=== PATIENT | male | born 1955 | race Caucasian/White ===

== ENCOUNTER 2018-10-11 18:29 | Inpatient (IN) | payer OTHER ==
[~2018-10-11] VITALS: Ht 170.2 cm; Wt 80.0 kg
[~2018-10-11 18:29] MED LIST: ACET1TAB40 PO; ACET500C5 PO; ASPI-817 PO; ERYT1OIN6 LEFT EYE; GLYB1TAB2 PO; METO-448 PO; RAMI5CAP64 PO; TRAM50TA2 PO
[2018-10-11 20:52] VITALS: BP 133/63; PULSE 63; RESP 16
[2018-10-11 21:20] VITALS: Ht 170.2 cm; Wt 80.0 kg
[2018-10-11 21:24] VITALS: BP 123/67; PULSE 61; RESP 18
[2018-10-11] MEDS ORDERED: SIMV40TA3 PO (21:54)
[2018-10-11] MEDS ORDERED: BENA10TA4 PO (21:54)
[2018-10-11] MEDS ORDERED: LINA5TAB PO (21:54)
[2018-10-11] MEDS ORDERED: GLIM4TAB55 PO (21:54)
[2018-10-11] MEDS ORDERED: METF850T13 PO (21:54)
--- NOTE | 2018-10-11 22:06 | NUR ---
NRSG NOTE: PT ARRIVED ON FLOOR AT 2014 IN STABLE CONDITION. AOX4. NO ACUTE DISTRESS NOTED. NO SOB. VSS. DENIED PAIN. BERMUDIAN SPEAKING, UNDERSTANDS BASIC [place]KIN[place]. ACCOMPANIED BY DAUGHTERS, . REPORT WAS GIVEN TO PRESTON VYAS. TRANSFERRED TO IN STABLE CONDITION VIA TRANSPORT ON BED.
--- NOTE | 2018-10-11 23:24 | HP ---
Date/Time of Note Date/Time of Note DATE: 10/11/18 TIME: 23:24 Assessment/Plan VTE Prophylaxis SCD applied (from Nsg): Yes Pharmacological prophylaxis: NA/contraindicated Pharm contraindication: other (Patient awaiting for a possible biopsy) Assessment/Plan Assessment/Plan 63-year-old male with a history of CAD with CABG, hypertension, dyslipidemia with painless jaundice, pruritus, 20 pounds weight loss in 6 weeks and petechial rash with a CT finding suspicious for metastatic cholangiocarcinoma. Lab shows hyperbilirubinemia with T-bili of 13 PLAN -Need a tissue biopsy to confirm the diagnosis. Daytime MD will talk to IR in the morning -Surgery and oncology consult -Antihistamine and Ursodiol for pruritus -Patient status post permethrin cream as outpatient for a rash suspicious for scabies, but without improvement. We may repeat treatment -Continue home meds with adjustment as needed HPI/ROS Admit Date/Time Admit Date/Time Oct 11, 2018 at 19:55 Hx of Present Illness This is a 63-year-old male with a history of CAD with CABG, hypertension, dyslipidemia who initially presented on outside hospital complaining of yellowing of skin, itching and rash. Symptoms started over 2 weeks ago and has been progressively getting worse. Patient has significant jaundice, more p ronounced in his upper extremities and chest. His total bilirubin at outside facility was 13. He also has petechial rash which resembles scabs. Patient reported a 20 pound weight loss in about 6 weeks. Reported decreased p.o. intake because of decreased appetite. Denied abdominal pain, chest pain, shortness of breath, urinary symptoms, constipation or diarrhea. Prior to going to the outside hospital ER, he was seen by his PMD and was prescribed Benadryl, prednisone and permethrin cream, but problem persisted. Patient had CT abdomen/pelvis at the outside facility which showed: 1. Hypoenhancing mass in the central liver, 6.2 x 5.9 x 5.4 cm, suspicious for cholangiocarcinoma, versus other hepatic tumor. There is extension along the portal hilum and gallbladder neck. There is intrahepatic biliary dilatation. 2. Mild thickened appearance of the adjacent upper hepatic flexure colonic wall, which could be reactive, although colonic involvement is not excluded. 3. Enlarged celiac lymph node, 2.3 x 1.6 cm, consistent with metastatic involvement 4. Left renal cyst, 2.5 cm . PMH/Family/Social Past Medical History Medical History: other (See HPI) Coded Allergies: No Known Allergy (Verified , 03/11/16) Past Surgical History Past Surgical Hx: other (See HPI) Family History Significant Family History: no pertinent family hx Social History Alcohol Use: none Smoking Status: Former smoker Drug Use: none Exam/Review of Systems Vital Signs Vitals Vital Signs Date Temp Pulse Resp B/P (MAP) Pulse Ox O2 O2 Flow FiO2 Time Delivery Rate 10/11/18 97.0 61 18 123/67 99 Room Air 21:24 (85) Exam Constitutional: alert, oriented, well developed Head: normocephalic, atraumatic Eyes: EOMI, PERRL, icteric Respiratory: clear to auscultation, normal air movement Cardiovascular: regular rate and rhythm, nl pulses Gastrointestinal: soft, non-tender Extremities: normal pulses Skin: other (Skin is jaundiced and has a petechial rash resembling scabies on several part of his upper extremities and chest and back) Results Results 24 hrs Laboratory Tests Test 10/11/18 20:40 Bedside Glucose 228 H CARLOS RESENDIZ MD Oct 11, 2018 23:24
[2018-10-11] MEDS ORDERED: NACL 0.9% 3 ML SYG IV SCH (23:30)
[2018-10-11] MEDS ORDERED: ONDANSETRON 4 MG INJ IV PRN (23:30)
[2018-10-11] MEDS ORDERED: ACETAMINOPHEN 325 MG TAB PO PRN (23:30)
[2018-10-11] MEDS ORDERED: HYDROCODONE/APAP (5/325) TAB PO PRN ×2 (23:30)
[2018-10-12] VITALS (31 sets, daily range): BP systolic 128–178; BP diastolic 61–87; PULSE 67–87; RESP 15–25
[2018-10-12] MEDS ORDERED: GLUCOSE GEL 15 GRAM TUBE BUCCAL PRN (02:30)
[2018-10-12] MEDS ORDERED: GLUCOSE GEL 15 GRAM TUBE PO PRN ×2 (02:30)
[2018-10-12] MEDS ORDERED: GLUCAGON 1 MG INJ IM PRN (02:30)
[2018-10-12] MEDS ORDERED: DEXTROSE 50% 50 ML SYRINGE IV PRN ×2 (02:30)
--- NOTE | 2018-10-12 02:47 | NUR ---
Received report from ASAEL Swenson. Pt is a direct admit from [facility]. Pt accompanied by and two daughters. Pt in no acute distress. Admission assessment started at 2119. VSS. No complaints of pain. Dr. Etienne inputted orders and contacted re: pt's blood glucose of 231. Dr. Etienne ordered pt to be put on mild sliding scale, orders carried out. Pt resting comfortably in bed, call light within reach.
[2018-10-12] MEDS: PANTOPRAZOLE (EC) 40 MG TAB PO SCH (06:00)
--- NOTE | 2018-10-12 06:18 | NUR ---
EOSS VSS. Pt denies pain. Pt complains of itchiness, Dr. Etienne made aware. Pt instructed to use call light.
[2018-10-12] MEDS ORDERED: DIPHENHYDRAMINE 50 MG INJ IV PRN (07:00)
[2018-10-12] MEDS ORDERED: SEVOFLURANE 15 MIN ONE ×2 (07:00)
[2018-10-12] MEDS ORDERED: DEXTROSE 5%-0.45% NACL 1,000 ML IV SCH (07:30)
[2018-10-12] MEDS ORDERED: INSULIN ASPART [NOVOLOG] 3 ML PEN SC SCH (08:00)
[2018-10-12] MEDS: BENAZEPRIL 10 MG TAB PO SCH (08:45)
[2018-10-12] MEDS: INSULIN ASPART [NOVOLOG] 3 ML PEN SC SCH ×6 (08:56→20:35)
[2018-10-12] MEDS ORDERED: LINAGLIPTIN 5 MG TABLET PO SCH (09:00)
[2018-10-12] MEDS ORDERED: metFORMIN 850 MG TAB PO SCH (09:00)
[2018-10-12] MEDS: URSODIOL 300 MG CAP PO SCH ×3 (10:14→20:05)
--- NOTE | 2018-10-12 12:42 | NUR ---
PT EVALUATION AND DC, Therapy day number 1 Evaluation Start Time 11:30 Evaluation End Time 12:55 Evaluation Total Time 85 min Subjective Denies pain Pain Scale NUMERIC Pain Intensity 0 (0-10) Patient Stated Goal for Pain Relief 0 (0-10) Pain Level Comment N/A Pre Treatment Vital Signs Stable Yes - BP:139/67 HR:74 Exercise Assessment Label Bilat Lower Extremity Exercise Type Active ROM Additional Exercise Comments AP, KNEE FLEX, EXT, SAQ , SLR , LAQ Supine to Sit Independent Transfer Sit to Stand Ability Independent Bed Mobility Sit to Supine Independent Bed Transfer Ability Independent Chair Transfer Ability Independent Sitting Tolerance 15 min Gait Assist Levels Independent Assistive Devices None Ambulation Distance 300 feet Additional Gait Comments RECIPROCAL, STEADY, STABLE WITH NO LOB ( WITHOUT AD ). Weight Bearing Assessment Label Bilat Lower Extremity Weight Bearing Status Full Weight Bearing Static Sitting Balance Fair minus Dynamic Sitting Balance Good Standing Static Balance Good Dynamic Standing Balance Good Safety Judgement Good Activity Tolerance Good Equipment Present IV pump Post Treatment Pain Intensity 0 0-10 Variance Documentation P/S SEE PT NOTE . PT Technical Record Comment PT EVALUATION , S: RN CLEARED , PATIENT AGREEABLE . O: PATIENT IS A 63 Y/O MALE WITH PMH : CAD, WITH CABG , HTN , PAINLESS JAUNDICE PRURITUS, WEIGHT LOSS 20' IN 6WKS, ADMITTED TO [facility] DUE TO GENERALIZED WEAKNESS AND TO R/O CHOLANGIOCARCINOMA .PATIENT IS ALERT AND ORIENTED TO SELF , SITUATION , INSTRUCTED HIM IN SAFETY FALL PRECAUTION , AND A/ROM BLE'S , PATIENT IS IND.IN BED MOBILITY , FUNCTIONAL TRANSFERS , GAIT TR WITHOUT AD PERFORMED 300' , GAIT WITHOUT AD , STEADY, STABLE AND RECIPROCAL WITH NO LOB , NO FURTHER SKILLED PT REQUIRES , PATIENT IS CLEARED TO AMBULATE WITH [facility] [place] STAFF , RN NOTIFIED . A: PATIENT LIVES WITH FAMILY IN A HOUSE WITH ONE ENTRY STEP, HAS BEEN FUNCTIONAL AND IND.AMBULATORY WITHOUT AD , PLAN TO RETURN HOME ONCE CLEARED BY MD , NO DME NEEDS . P: PT EVALUATION , ONLY .
--- NOTE | 2018-10-12 14:18 | CONS ---
Date/Time of Note Date/Time of Note DATE: 10/12/18 TIME: 14:13 Assessment/Plan Assessment/Plan Additional Assessment/Plan Preoperative cardiac risk stratification Jaundice CAD with history of CABG Hypertension -Patient presents with jaundice and is currently undergoing GI workup for concern for malignancy. From a cardiac perspective, patient with history of CABG approximately 2008. He is active and can climb at least 2 flights of stairs and denies any symptoms of exertional chest pain or shortness of breath. ECG with no significant ischemic abnormalities. Given his risk factors, patient is at an intermediate risk for any untoward cardiac events for endoscopy/ERCP. The benefits likely outweigh the risks. Consultation Date/Type/Reason Admit Date/Time Oct 11, 2018 at 19:55 Type of Consult cv Reason for Consultation Preoperative cardiac risk stratification Hx of Present Illness This is a 63-year-old male with past medical history of coronary artery disease with CABG approximately 2008, hypertension who presents with pruritus and jaundice progressing over the past 2 weeks. Patient was transferred to our facility secondary to insurance reasons. In discussion with patient and daughter over the phone, he denies any exertional chest pain, shortness of breath, or dizziness. He can climb at least 2 flights of stairs. He denies any exertional symptoms. He has been doing well since his CABG from a cardiac standpoint. 12 point review of systems was performed with all pertinent positives and negatives mentioned above and all else is negative Past Medical History Medical History: coronary artery disease, hypertension, other (See HPI) Medications Current Medications IV Flush (NS 3 ml) 3 ml PER PROTOCOL IV ; Start 10/11/18 at 23:30 Ondansetron HCl (Zofran Inj) 4 mg Q6H PRN IV NAUSEA AND/OR VOMITING; Start 10/11/18 at 23:30 Acetaminophen (Tylenol Tab) 650 mg Q6H PRN PO PAIN LEVEL 1-3 OR FEVER; Start 10/11/18 at 23:30 Acetaminophen/ Hydrocodone Bitart ([place] (5/325)) 1 tab Q6H PRN PO PAIN LEVEL 4-6; Start 10/11/18 at 23:30 Acetaminophen/ Hydrocodone Bitart ([place] (5/325)) 2 tab Q6H PRN PO PAIN LEVEL 7-10; Start 10/11/18 at 23:30 Pantoprazole (Protonix Tab) 40 mg DAILY@06 PO Last administered on 10/12/18at 06:00; Admin Dose 40 MG; Start 10/12/18 at 06:00 Benazepril HCl (Lotensin) 10 mg DAILY PO Last administered on 10/12/18at 08:45; Admin Dose 10 MG; Start 10/12/18 at 09:00 Atorvastatin Calcium (Lipitor) 20 mg DAILY@21 PO ; Start 10/12/18 at 21:00 Diagnostic Test (Pha) (Accu-Chek) 1 ea 02 XX ; Start 10/13/18 at 02:00 Miscellaneous Information 1 ea NOTE XX ; Start 10/12/18 at 02:30 Glucose (Glutose) 15 gm Q15M PRN PO DECREASED GLUCOSE; Start 10/12/18 at 02:30 Glucose (Glutose) 22.5 gm Q15M PRN PO DECREASED GLUCOSE; Start 10/12/18 at 02:30 Dextrose (D50w Syringe) 25 ml Q15M PRN IV DECREASED GLUCOSE; Start 10/12/18 at 02:30 Dextrose (D50w Syringe) 50 ml Q15M PRN IV DECREASED GLUCOSE; Start 10/12/18 at 02:30 Glucagon (Glucagen) 1 mg Q15M PRN IM DECREASED GLUCOSE; Start 10/12/18 at 02:30 Glucose (Glutose) 15 gm Q15M PRN BUCCAL DECREASED GLUCOSE; Start 10/12/18 at 02:30 Diphenhydramine HCl (Benadryl) 25 mg Q6H PRN IV itching Last administered on 10/12/18at 07:01; Admin Dose 25 MG; Start 10/12/18 at 07:00 Ursodiol (Actigall) 300 mg TID PO Last administered on 10/12/18at 12:42; Admin Dose 300 MG; Start 10/12/18 at 09:00 Diagnostic Test (Pha) (Accu-Chek) 1 ea 02 XX ; Start 10/13/18 at 02:00 Insulin Aspart (Novolog Insulin Pen) NOVOLOG *MILD* ALGORI... Q4 SC Last administered on 10/12/18at 12:44; Admin Dose 3 UNIT; Start 10/12/18 at 09:00 Insulin Glargine (Lantus) 12 units DAILY@2000 SC ; Start 10/12/18 at 20:00 Insulin Aspart (Novolog Insulin Pen) 4 unit WITH MEALS SC ; Start 10/12/18 at 12:00 Indomethacin (Indocin Supp) 100 mg ONCE ONCE GA ; Start 10/12/18 at 15:30; Stop 10/12/18 at 15:31 Allergies: Coded Allergies: No Known Allergy (Verified , 03/11/16) Past Surgical History Past Surgical Hx: coronary bypass surgery, other (Orthopedic surgery) Family History Significant Family History: no pertinent family hx Social History Alcohol Use: none Smoking Status: Former smoker Drug Use: none Exam/Review of Systems Vital Signs Vitals Vital Signs Date Temp Pulse Resp B/P (MAP) Pulse Ox O2 O2 Flow FiO2 Time Delivery Rate 10/12/18 98.0 74 17 139/67 99 Room Air 08:41 (91) Intake and Output 10/11/18 10/11/18 10/12/18 1515:00 23:00 07:00 IntakeIntake Total 180 ml OutputOutput Total 1 ml BalanceBalance 179 ml Exam Jaundiced, no apparent distress Constitutional: alert, oriented Head: normocephalic Respiratory: other (Coarse breath sounds bilaterally, no wheezing) Cardiovascular: regular rate and rhythm, other (S1-S2 heard) Gastrointestinal: soft, non-tender, bowel sounds Extremities: other (No significant edema) Additional Comments ECG done today with sinus rhythm, QRS 104 ms, nonspecific ST abnormalities Medications Medications Current Medications IV Flush (NS 3 ml) 3 ml PER PROTOCOL IV ; Start 10/11/18 at 23:30 Ondansetron HCl (Zofran Inj) 4 mg Q6H PRN IV NAUSEA AND/OR VOMITING; Start 10/11/18 at 23:30 Acetaminophen (Tylenol Tab) 650 mg Q6H PRN PO PAIN LEVEL 1-3 OR FEVER; Start 10/11/18 at 23:30 Acetaminophen/ Hydrocodone Bitart ([place] (5/325)) 1 tab Q6H PRN PO PAIN LEVEL 4-6; Start 10/11/18 at 23:30 Acetaminophen/ Hydrocodone Bitart ([place] (5/325)) 2 tab Q6H PRN PO PAIN LEVEL 7-10; Start 10/11/18 at 23:30 Pantoprazole (Protonix Tab) 40 mg DAILY@06 PO Last administered on 10/12/18at 06:00; Admin Dose 40 MG; Start 10/12/18 at 06:00 Benazepril HCl (Lotensin) 10 mg DAILY PO Last administered on 10/12/18at 08:45; Admin Dose 10 MG; Start 10/12/18 at 09:00 Atorvastatin Calcium (Lipitor) 20 mg DAILY@21 PO ; Start 10/12/18 at 21:00 Diagnostic Test (Pha) (Accu-Chek) 1 ea 02 XX ; Start 10/13/18 at 02:00 Miscellaneous Information 1 ea NOTE XX ; Start 10/12/18 at 02:30 Glucose (Glutose) 15 gm Q15M PRN PO DECREASED GLUCOSE; Start 10/12/18 at 02:30 Glucose (Glutose) 22.5 gm Q15M PRN PO DECREASED GLUCOSE; Start 10/12/18 at 02:30 Dextrose (D50w Syringe) 25 ml Q15M PRN IV DECREASED GLUCOSE; Start 10/12/18 at 02:30 Dextrose (D50w Syringe) 50 ml Q15M PRN IV DECREASED GLUCOSE; Start 10/12/18 at 02:30 Glucagon (Glucagen) 1 mg Q15M PRN IM DECREASED GLUCOSE; Start 10/12/18 at 02:30 Glucose (Glutose) 15 gm Q15M PRN BUCCAL DECREASED GLUCOSE; Start 10/12/18 at 02:30 Diphenhydramine HCl (Benadryl) 25 mg Q6H PRN IV itching Last administered on 10/12/18at 07:01; Admin Dose 25 MG; Start 10/12/18 at 07:00 Ursodiol (Actigall) 300 mg TID PO Last administered on 10/12/18at 12:42; Admin Dose 300 MG; Start 10/12/18 at 09:00 Diagnostic Test (Pha) (Accu-Chek) 1 ea 02 XX ; Start 10/13/18 at 02:00 Insulin Aspart (Novolog Insulin Pen) NOVOLOG *MILD* ALGORI... Q4 SC Last administered on 10/12/18at 12:44; Admin Dose 3 UNIT; Start 10/12/18 at 09:00 Insulin Glargine (Lantus) 12 units DAILY@2000 SC ; Start 10/12/18 at 20:00 Insulin Aspart (Novolog Insulin Pen) 4 unit WITH MEALS SC ; Start 10/12/18 at 12:00 Indomethacin (Indocin Supp) 100 mg ONCE ONCE GA ; Start 10/12/18 at 15:30; Stop 10/12/18 at 15:31 Hari Khan DO Oct 12, 2018 14:18
--- NOTE | 2018-10-12 14:26 | CONS ---
DATE OF ADMISSION: 10/11/2018 DATE OF CONSULTATION: 10/12/[address] Malave: Thank you for asking me to see Mr. Mortensen in GI consultation. HISTORY OF PRESENT ILLNESS: The patient, as you know, is a 63-year-old [place] gentleman who at thi s time is admitted to the hospital because of jaundice. The CAT scan of the abdomen in the other [facility] showed evidence of a tumor in the liver, possibly cholangiocarcinoma. The patient states becau se of abdominal pain and itching and jaundice, he states he went to [facility] where he underwe nt a CAT scan examination. He does not smoke or drink. He has no history of liver disease in the past. He has lost about 20 po unds of weight recently. He has a history of a coronary artery bypass surgery done several years ago. MEDICATIONS PRIOR TO THE ADMISSION INCLUDE: 1. Benazepril. 2. Hormones. 3. Glimepiride. 4. Linagliptin. 5. Metformin. 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 PHYSICAL EXAMINATION: GENERAL: The patient is a 63-year-old [place] gentleman who at this time is alert. He has got melanie dice. Has scratch vargas all over the body. VITAL SIGNS: Temperature 98, pulse is 74, blood pressure is 139/67. CARDIOVASCULAR: Normal heart sounds. RESPIRATORY: Normal breath sounds. ABDOMEN: Showed a soft abdomen with no palpable masses. LABORATORY WORKUP: The BUN is 12, creatinine 0.61. Bilirubin 9.4, direct 7.7, AST of 59, ALT 94, al kaline phosphatase 249. WBC 7300, hemoglobin 12.3, platelet count is 253,000. CLINICAL IMPRESSION: The patient presenting with history of jaundice which is obstructive jaundice, likely secondary to cholangiocarcinoma, likely [place] tumor, probably at bifurcation of left and ri ght hepatic ducts with biliary dilatation, which is intrahepatic. He has got history. I doubt if we are dealing with hepatitis or hepatocellular causes. He could have a fatty liver as a result of diabetes. He could have GALINDO syndrome, underlying disease. History of diabetes and hypertension. PLAN: At this time, recommend ERCP. I discussed this with the patient and patient's daughter regard ing the ERCP, biliary stenting placement, etc. Patient will eventually need a biopsy if we cannot ac complish a biopsy through the ERCP. Once again, Doctor, thank you for this consultation. Dictated By: RASHMI RAMIREZ/DARWIN Conf#: [id number] DID#: [id number] CC: TRINY MALAVE;*EndCC*
[2018-10-12] MEDS ORDERED: INDOMETHACIN 50 MG SUPP PR ONE (15:30)
--- NOTE | 2018-10-12 15:48 | PN ---
Date/Time of Note Date/Time of Note DATE: 10/12/18 TIME: 15:47 Assessment/Plan VTE Prophylaxis Risk score (from Nsg)>0 risk: 5 SCD applied (from Nsg): Yes Pharmacological prophylaxis: heparin Lines/Catheters IV Catheter Type (from Nrsg): Peripheral IV Assessment/Plan Hospital Course 63 yo male with CAD, DMII who presents with painless jaundice and obstructing mass - ERCP today per Dr Lynn DMII; - Basal/bolus insulin with home medications CAD: - Statin Discharge following endoscopic management Result Diagram: 10/12/18 0035 10/12/18 0035 Results 24hrs Laboratory Tests Test 10/11/18 20:40 10/12/18 00:35 10/12/18 01:08 10/12/18 08:31 Bedside Glucose 228 H 231 H White Blood 7.3 Count Red Blood Count 4.25 L Hemoglobin 12.3 L Hematocrit 35.1 L Mean Corpuscular 82.6 Volume Mean Corpuscular 28.9 L Hemoglobin Mean Corpuscular 35.0 Hemoglobin Anais nt Red Cell 15.4 H Distribution Width Platelet Count 253 Mean Platelet 11.2 H Volume Immature 0.400 Granulocytes % Neutrophils % 63.0 Lymphocytes % 25.5 Monocytes % 10.3 Eosinophils % 0.4 Basophils % 0.4 Nucleated Red 0.0 Blood Cells % Immature 0.030 Granulocytes # Neutrophils # 4.6 Lymphocytes # 1.9 Monocytes # 0.8 Eosinophils # 0.0 Basophils # 0.0 Nucleated Red 0.0 Blood Cells # Sodium Level 137 Potassium Level 4.0 Chloride Level 99 Carbon Dioxide 24 Level Anion Gap 14 H Blood Urea 12 Nitrogen Creatinine 0.61 Est Glomerular > 60 Filtrat Rate mL/min Glucose Level 246 H Hemoglobin A1c 10.1 H Calcium Level 9.1 Total Bilirubin 9.4 H Direct Bilirubin 7.70 H Indirect 1.7 H Bilirubin Aspartate Amino 59 H Transf (AST/SGOT ) Alanine 94 H Aminotransferase (ALT/SGPT) Alkaline 249 H Phosphatase Total Protein 6.7 Albumin 3.7 Globulin 3.00 Albumin/Globulin 1.23 Ratio Prothrombin Time 13.1 Prothrombin Time 1.0 Ratio INR 0.98 International Normalized Ratio Activated 25.7 Partial Thrombop last Time Test 10/12/18 08:54 10/12/18 12:42 Bedside Glucose 243 H 240 H Subjective 24 Hr Interval Summary Free Text/Dictation Feels well Aware of likely cancer diagnosis and need for endoscopy Exam/Review of Systems Vital Signs Vitals Vital Signs Date Temp Pulse Resp B/P (MAP) Pulse Ox O2 O2 Flow FiO2 Time Delivery Rate 10/12/18 98.0 74 17 139/67 99 Room Air 08:41 (91) Intake and Output 10/11/18 10/11/18 10/12/18 1515:00 23:00 07:00 IntakeIntake Total 180 ml OutputOutput Total 1 ml BalanceBalance 179 ml Medications Medications Current Medications IV Flush (NS 3 ml) 3 ml PER PROTOCOL IV ; Start 10/11/18 at 23:30 Ondansetron HCl (Zofran Inj) 4 mg Q6H PRN IV NAUSEA AND/OR VOMITING; Start 10/11/18 at 23:30 Acetaminophen (Tylenol Tab) 650 mg Q6H PRN PO PAIN LEVEL 1-3 OR FEVER; Start 10/11/18 at 23:30 Acetaminophen/ Hydrocodone Bitart ([place] (5/325)) 1 tab Q6H PRN PO PAIN LEVEL 4-6; Start 10/11/18 at 23:30 Acetaminophen/ Hydrocodone Bitart ([place] (5/325)) 2 tab Q6H PRN PO PAIN LEVEL 7-10; Start 10/11/18 at 23:30 Pantoprazole (Protonix Tab) 40 mg DAILY@06 PO Last administered on 10/12/18at 06:00; Admin Dose 40 MG; Start 10/12/18 at 06:00 Benazepril HCl (Lotensin) 10 mg DAILY PO Last administered on 10/12/18at 08:45; Admin Dose 10 MG; Start 10/12/18 at 09:00 Atorvastatin Calcium (Lipitor) 20 mg DAILY@21 PO ; Start 10/12/18 at 21:00 Diagnostic Test (Pha) (Accu-Chek) 1 ea 02 XX ; Start 10/13/18 at 02:00 Miscellaneous Information 1 ea NOTE XX ; Start 10/12/18 at 02:30 Glucose (Glutose) 15 gm Q15M PRN PO DECREASED GLUCOSE; Start 10/12/18 at 02:30 Glucose (Glutose) 22.5 gm Q15M PRN PO DECREASED GLUCOSE; Start 10/12/18 at 02:30 Dextrose (D50w Syringe) 25 ml Q15M PRN IV DECREASED GLUCOSE; Start 10/12/18 at 02:30 Dextrose (D50w Syringe) 50 ml Q15M PRN IV DECREASED GLUCOSE; Start 10/12/18 at 02:30 Glucagon (Glucagen) 1 mg Q15M PRN IM DECREASED GLUCOSE; Start 10/12/18 at 02:30 Glucose (Glutose) 15 gm Q15M PRN BUCCAL DECREASED GLUCOSE; Start 10/12/18 at 02:30 Diphenhydramine HCl (Benadryl) 25 mg Q6H PRN IV itching Last administered on 10/12/18at 07:01; Admin Dose 25 MG; Start 10/12/18 at 07:00 Ursodiol (Actigall) 300 mg TID PO Last administered on 10/12/18at 12:42; Admin Dose 300 MG; Start 10/12/18 at 09:00 Diagnostic Test (Pha) (Accu-Chek) 1 ea 02 XX ; Start 10/13/18 at 02:00 Insulin Aspart (Novolog Insulin Pen) NOVOLOG *MILD* ALGORI... Q4 SC Last administered on 10/12/18at 12:44; Admin Dose 3 UNIT; Start 10/12/18 at 09:00 Insulin Glargine (Lantus) 12 units DAILY@2000 SC ; Start 10/12/18 at 20:00 Insulin Aspart (Novolog Insulin Pen) 4 unit WITH MEALS SC ; Start 10/12/18 at 12:00 LOPEZ FLOWERS MD Oct 12, 2018 15:48
--- NOTE | 2018-10-12 16:19 | PREAC ---
Date/Time of Note Date/Time of Note DATE: 10/12/18 TIME: 16:14 Anesthesia Eval and Record Evaluation Time Pre-Procedure Interview DATE: 10/12/18 TIME: 16:14 Age 63 Sex male NPO: 8 hrs Preoperative diagnosis Cholestasis, Obstructive Jaundice Planned procedure ERCP Past Medical History Past Medical History: Includes Cardio: Dyslipidemia, CAD, CABG Endo: Diabetes Heme: Anemia Surgery & Anesthesia Issues No known issue Meds Anticoagulation: No Beta Colleen within 24 hr: Yes Reported Medications Linagliptin (TRADJENTA) 5 Mg Tablet, 5 MG PO DAILY, TAB 10/11/18 Simvastatin (Simvastatin) 40 Mg Tablet, 40 MG PO DAILY, #30 TAB 10/11/18 Benazepril Hcl* (Benazepril Hcl*) 10 Mg Tablet, 10 MG PO DAILY, #30 TAB 10/11/18 Glimepiride* (Amaryl*) 4 Mg Tablet, 4 MG PO DAILY, TAB 10/11/18 Metformin Hcl* (Metformin Hcl*) 850 Mg Tablet, 850 MG PO BID, #30 TAB 10/11/18 Linagliptin (TRADJENTA) 5 Mg Tablet, 5 MG PO DAILY, TAB 10/11/18 [Unknown] No Conflict Check 12/04/09 Discontinued Reported Medications Aspirin* (Aspirin* EC) 81 Mg Tablet.dr, 81 MG PO DAILY, TAB 03/11/16 Ramipril (Ramipril) 5 Mg Capsule, 5 MG PO DAILY, CAP 03/11/16 Glyburide, Micro/Metformin Hcl (Glyburide-Metformin) 2.5-500 Tab, 1 TAB PO DAILY, TAB 03/11/16 Metoprolol Tartrate* (Lopressor*) 25 Mg Tab, 25 MG PO DAILY, #60 TAB 03/11/16 Discontinued Scripts Acetaminophen* (Tylophen*) 500 Mg Capsule, 1 CAP PO Q6H PRN for PAIN AND OR ELEVATED TEMP, #30 CAP Prov:LISA NICHOLS PA-C 05/28/16 Acetaminophen-Codeine* (Acetaminophen-Cod #3*) 300-30 Mg Tab, 1 TAB PO Q4H PRN for PAIN, #10 TAB Prov:AUSTIN ALVA MD 05/20/16 Erythromycin (Erythromycin Opth) 3.5 Gm Oint..gm., 1 APPLIC LEFT EYE QID for 7 Days, EA Prov:AUSTIN ALVA MD 05/20/16 Current Medications IV Flush (NS 3 ml) 3 ml PER PROTOCOL IV ; Start 10/11/18 at 23:30 Ondansetron HCl (Zofran Inj) 4 mg Q6H PRN IV NAUSEA AND/OR VOMITING; Start 10/11/18 at 23:30 Acetaminophen (Tylenol Tab) 650 mg Q6H PRN PO PAIN LEVEL 1-3 OR FEVER; Start 10/11/18 at 23:30 Acetaminophen/ Hydrocodone Bitart ([place] (5/325)) 1 tab Q6H PRN PO PAIN LEVEL 4-6; Start 10/11/18 at 23:30 Acetaminophen/ Hydrocodone Bitart ([place] (5/325)) 2 tab Q6H PRN PO PAIN LEVEL 7-10; Start 10/11/18 at 23:30 Pantoprazole (Protonix Tab) 40 mg DAILY@06 PO Last administered on 10/12/18at 06:00; Admin Dose 40 MG; Start 10/12/18 at 06:00 Benazepril HCl (Lotensin) 10 mg DAILY PO Last administered on 10/12/18at 08:45; Admin Dose 10 MG; Start 10/12/18 at 09:00 Atorvastatin Calcium (Lipitor) 20 mg DAILY@21 PO ; Start 10/12/18 at 21:00 Miscellaneous Information 1 ea NOTE XX ; Start 10/12/18 at 02:30 Glucose (Glutose) 15 gm Q15M PRN PO DECREASED GLUCOSE; Start 10/12/18 at 02:30 Glucose (Glutose) 22.5 gm Q15M PRN PO DECREASED GLUCOSE; Start 10/12/18 at 02:30 Dextrose (D50w Syringe) 25 ml Q15M PRN IV DECREASED GLUCOSE; Start 10/12/18 at 02:30 Dextrose (D50w Syringe) 50 ml Q15M PRN IV DECREASED GLUCOSE; Start 10/12/18 at 02:30 Glucagon (Glucagen) 1 mg Q15M PRN IM DECREASED GLUCOSE; Start 10/12/18 at 02:30 Glucose (Glutose) 15 gm Q15M PRN BUCCAL DECREASED GLUCOSE; Start 10/12/18 at 02:30 Diphenhydramine HCl (Benadryl) 25 mg Q6H PRN IV itching Last administered on 10/12/18at 07:01; Admin Dose 25 MG; Start 10/12/18 at 07:00 Ursodiol (Actigall) 300 mg TID PO Last administered on 10/12/18at 12:42; Admin Dose 300 MG; Start 10/12/18 at 09:00 Insulin Aspart (Novolog Insulin Pen) NOVOLOG *MILD* ALGORI... Q4 SC Last administered on 10/12/18at 12:44; Admin Dose 3 UNIT; Start 10/12/18 at 09:00 Insulin Glargine (Lantus) 12 units DAILY@2000 SC ; Start 10/12/18 at 20:00 Insulin Aspart (Novolog Insulin Pen) 4 unit WITH MEALS SC ; Start 10/12/18 at 12:00 Meds reviewed: Yes Allergies Coded Allergies: No Known Allergy (Verified , 03/11/16) Allergies Reviewed: Yes Labs/Studies Labs Reviewed: Reviewed by anesthesiologist Result Diagram: 10/12/18 0035 10/12/18 0035 Laboratory Tests 10/12/18 00:35 test: N/A Studies: ECG (SB, LAD), CXR (n/a) Pre-procedure Exam Last vitals Vital Signs Date Temp Pulse Resp B/P (MAP) Pulse Ox O2 O2 Flow FiO2 Time Delivery Rate 10/12/18 98.0 74 17 139/67 99 Room Air 08:41 (91) Airway: Adequate mouth opening, Adequate thyromental dist Mallampati: Mallampati II Teeth: Normal Lung: Normal Heart: Normal ASA Physical Status ASA physical status: 3 Emergency: None Planned Anesthetic General/MAC: ETT Planned Pain Management Parenteral pain med Pre-operative Attestations Prior to commencing anesthesia and surgery, the patient was re-evaluated, there was verification of: *The patient's identity *The results of appropriate recent lab work and preoperative vital signs *The above evaluation not changing prior to induction *Anesthetic plan, risk benefits, alternative and complications discussed with patient/family; questions answered; patient/family understands, accepts and wishes to proceed. MARYLIN WESTBROOK MD Oct 12, 2018 16:19
[2018-10-12] MEDS ORDERED: MIDAZOLAM 1 MG/ML 2 ML INJ ONE (16:22)
[2018-10-12] MEDS ORDERED: CEFAZOLIN 1 GM INJ ONE (16:22)
[2018-10-12] MEDS ORDERED: ROCURONIUM 50 MG INJ ONE (16:22)
[2018-10-12] MEDS ORDERED: FENTAnyl 50 MCG/ML VIAL ONE (16:22)
[2018-10-12] MEDS ORDERED: PROPOFOL 20 ML ONE (16:22)
[2018-10-12] MEDS ORDERED: hydrALAzine 20 MG INJ IV PRN ×2 (16:30→21:00)
[2018-10-12] MEDS ORDERED: FENTAnyl 50 MCG/ML VIAL IV PRN ×3 (16:30)
[2018-10-12] MEDS ORDERED: LABETALOL HCL 20MG INJ IV PRN (16:30)
[2018-10-12] MEDS ORDERED: HYDROmorphONE 1 MG/5 ML IV SYRINGE IV PRN ×3 (16:30)
[2018-10-12] MEDS ORDERED: ONDANSETRON 4 MG INJ IV PRN (16:30)
[2018-10-12] MEDS ORDERED: EPHEDrine SULFATE 50 MG/5 ML SYG IV PRN (16:30)
[2018-10-12] MEDS ORDERED: METOCLOPRAMIDE 10 MG INJ IV PRN (16:30)
[2018-10-12] MEDS ORDERED: PHENYLephrine (100 MCG/ML) 5ML SYG ONE (16:44)
[2018-10-12] MEDS ORDERED: METOCLOPRAMIDE 10 MG INJ ONE (17:02)
[2018-10-12] MEDS ORDERED: DEXAMETHASONE 4 MG/ML 1 ML INJ ONE (17:02)
[2018-10-12] MEDS ORDERED: ONDANSETRON 4 MG INJ ONE (17:02)
[2018-10-12] MEDS ORDERED: SUGAMMADEX SODIUM 200 MG/2 ML VIAL IV ONE (18:06)
[2018-10-12] MEDS ORDERED: INSULIN ASPART [NOVOLOG] 3 ML PEN SC STA (18:18)
--- NOTE | 2018-10-12 18:21 | PAC ---
Date/Time of Note Date/Time of Note DATE: 10/12/18 TIME: 18:20 Post-Anesthesia Notes Post-Anesthesia Note Last documented vital signs Vital Signs Date Temp Pulse Resp B/P (MAP) Pulse Ox O2 O2 Flow FiO2 Time Delivery Rate 10/12/18 98.0 74 17 139/67 99 Room Air 18:21 (91) Activity: WNL Respiratory function: WNL Cardiovascular function: WNL Mental status: Baseline Pain reasonably controlled: Yes Hydration appropriate: Yes Nausea/Vomiting absent: Yes MARYLIN WESTBROOK MD Oct 12, 2018 18:21
--- NOTE | 2018-10-12 18:23 | NUR ---
EOSS Patient in no acute distress during shift. Patient currently off unit for ERCP. Blood glucose monitored Q4H, insulin coverage given as ordered. VSS. Dressing to left index finger changed. Patient ambulates with a steady gait independently. PT cleared patient to ambulate with nursing staff today. Hourly rounds done, call light in reach. Will endorse plan of care to oncoming shift.
--- NOTE | 2018-10-12 18:50 | OPR ---
Date/Time of Note Date/Time of Note DATE: 10/12/18 TIME: 18:43 Operative Report Preoperative Diagnosis liver mass Postoperative Diagnosis obstructed cbd with dilated biliary ducts Operation/Procedure Performed ercp Surgeon see signature line Prospecting Driller none Anesthesia Type: general Anesthesiologist: MARYLIN WESTBROOK MD Estimated Blood Loss: none Transfusion none Specimen brusching of cbd and bx of ampulla Grafts/Implants none Tubes/Drains cbd stents Complications none Pt Condition Post Procedure: stable Disposition: PACU Indications obstructive jaundice Procedure Description ercp done papillary sphincterotomy done malignant stricture of cbd noted hepatic duct stents placed RASHMI COLORADO MD Oct 12, 2018 18:50
--- NOTE | 2018-10-12 19:33 | GILP ---
DATE OF PROCEDURE: PROCEDURES: ERCP, sphincterotomy, brushings of the malignant stricture of the bile duct, placement o f 2 stents, one into the left hepatic duct and one into the right hepatic duct. PREOPERATIVE DIAGNOSIS: Obstructive jaundice due to malignancy of the liver, probably a common bile duct. 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 After brushings and sp hincterotomy, biliary stents were placed. DESCRIPTION OF PROCEDURE: After informed written consent was obtained, the patient was intubated by anesthesiologist, Dr. Montejo. When the patient was in the prone position while he was sleeping, Rachel mpus video side-viewing duodenoscope was inserted into the oropharynx, then into the esophagus, subse quently into the stomach and then into the duodenum. The ampulla appeared to be rather prominent wit h erythema on the mucosal surface. At this time, by using the Dreamtome, the cannulation of the comm on bile duct was performed in the distal common bile duct for about 3 cm. Normal in diameter above t his area, there is evidence of very insignificant amount of contrast indicating this is a stricture. Proximal to this, both bilateral hepatic ducts were dilated. Common hepatic duct was dilated. At t his time, sphincterotomy was performed. About 8-mm cut was made and at this time, a brush was insert ed into the malignant stricture of the distal common bile duct. Brushings were obtained. I elected to place 2 stents, one into the left hepatic duct and one into the right hepatic duct. A g uidewire was inserted into the left hepatic duct and a 7 x 9-cm CBD stent was placed into the right h epatic duct. A 7 x 7-cm [place] type of a biliary stent was placed and bile was found to be draini ng through both stents. Ampulla was appearing to be prominent. Hence, biopsies of the ampulla were done. In the beginning itself, a brush was inserted into the malignant stricture and brushings were done. Scope at this time was withdrawn and the procedure was terminated. PLAN: Recommend CA 19-9 level, MRCP, and hematology-oncology consultation. The patient probably nee a tertiary center for pancreatic surgery. Dictated By: RASHMI RAMIREZ/DARWIN Conf#: [id number] DID#: [id number] CC: LOPEZ FLOWERS MD; TRINY MALAVE;*[facility]*
[2018-10-12] MEDS ORDERED: INSULIN GLARGINE [LANTus] (100 UNITS/ML) SYG SC SCH (20:00)
[2018-10-12] MEDS: ATORVASTATIN 20 MG TAB PO SCH (20:05)
--- NOTE | 2018-10-12 23:29 | RADRPT ---
Echocardiogram Report Patient Name: ESSENCE COSTELLO Gender: Male Date: 1955 Study Date: 12-Oct-2018 Manufacturers Service Representative: Yaquelin [facility] Location: 5537-A Ref. Physician: HARI KHAN Quality: Adequate Procedures: Transthoracic echocardiogram with complete 2D, M-Mode, and doppler examination. Indications: Pre-op, Cad, Cabg. 2D/M Mode Doppler Measurement Value Normal Ranges Measurement Value Normal Ranges LVIDd 2D 5.2 3.5 - 5.6 cm AV Peak Farhan 1.1 m/sec LVIDs 2D 3.5 2.1 - 4.1 cm AV Peak PG 5.0 mmHg LVPWd 2D 0.9 0.6 - 1.1 cm LVOT Peak Farhan 1.0 m/sec IVSd 2D 1.1 0.6 - 1.1 cm LVOT Peak PG 4.0 mmHg AoR Diam 2D 2.7 2.0 - 3.7 cm MV E Peak Farhan 0.5 m/sec LA/Ao 2D 1 0 - 1 MV A Peak Farhan 0.7 m/sec LA Dimen 2D 3.7 2.3 - 4.0 cm MV E/A 0.7 MV Decel Time 345 msec Lat E` Farhan 0.2 m/sec Lateral E/E` 3.2 Med E` Farhan 0.1 m/sec MV E/A 0.7 TAPSE 1.5 cm TR Peak Farhan 2.2 m/sec TR Peak PG 20.0 mmHg RVSP 23.0 mmHg Findings Left Ventricle: Normal left ventricular cavity size. Mild asymmetric septal hypertrophy. Mild left ventricular systolic dysfunction. Ejection fraction is visually estimated at 45 %. Tissue Doppler/Mitral Doppler indices are consistent with impaired relaxation (Stage I diastolic dysfunction). Right Ventricle: Normal right ventricular size. Normal right ventricular systolic function. Left Atrium: The left atrium is normal in size. Right Atrium: The right atrium is normal in size. Mitral Valve: Mild mitral leaflet calcification. Mild mitral annular calcification. Trace mitral regurgitation. Aortic Valve: Aortic sclerosis without significant stenosis. Trace aortic valve regurgitation. Tricuspid Valve: Normal appearance of the tricuspid valve. Estimated peak PA systolic pressure 23 mmHg. There is trace tricuspid regurgitation. Pulmonic Valve: Normal pulmonic valve appearance. There is trace pulmonic regurgitation. Pericardium: Normal pericardium with no significant pericardial effusion. Aorta: Normal aortic root. IVC: Normal size and normal respiratory collapse consistent with normal right atrial pressure. Conclusions Normal left ventricular cavity size. Mild asymmetric septal hypertrophy. Mild left ventricular systolic dysfunction. Ejection fraction is visually estimated at 45 %. Tissue Doppler/Mitral Doppler indices are consistent with impaired relaxation (Stage I diastolic dysfunction). Normal right ventricular size. Normal right ventricular systolic function. The left atrium is normal in size. The right atrium is normal in size. No significant valvular stenosis or regurgitation seen. Normal pericardium with no significant pericardial effusion. Electronically Signed By: Hari Khan 12-Oct-2018 23:29:30 -0800 Patient Name: ESSENCE COSTELLO Study Date: 12-Oct-[id number]
[2018-10-13 01:52] VITALS: BP 124/66; PULSE 66; RESP 20
[2018-10-13] MEDS ORDERED: INSULIN ASPART [NOVOLOG] 3 ML PEN SC ONE (02:00)
[2018-10-13] MEDS ORDERED: ACCU-CHEK XX SCH ×2 (02:00)
[2018-10-13] MEDS: PANTOPRAZOLE (EC) 40 MG TAB PO SCH (05:12)
--- NOTE | 2018-10-13 06:39 | NUR ---
EOSS: Pt. came back from procedure around 1950 last night. Pt. alert & oriented x4. All due meds given. Pt. received clear liquid dinner tray upon arriving back to the unit. Blood glucose monitored. 0200 blood glucose was 329, spoke to Dr. Brown and received new order for 5 units novolog x1. Pt. walks steady without assist. Bed alarm is on, pt. free from injury. Will endorse care to oncoming nurse.
[2018-10-13 08:33] VITALS: BP 124/70; PULSE 59; RESP 18
[2018-10-13] MEDS: URSODIOL 300 MG CAP PO SCH ×3 (08:44→20:05)
[2018-10-13] MEDS: BENAZEPRIL 10 MG TAB PO SCH (08:44)
[2018-10-13] MEDS: INSULIN ASPART [NOVOLOG] 3 ML PEN SC SCH ×6 (09:49→20:07)
--- NOTE | 2018-10-13 12:08 | EN ---
Date/Time of Note Date/Time of Note DATE: 10/13/18 TIME: 12:05 Event Note Medicine Medicine Event Note Oncology: Came to see pt in consultation and had pt taken to MRI just as I arrived. Will see pt in AM. MD TRINITY Farias STANLEY H MD Oct 13, 2018 12:08
[2018-10-13 14:00] VITALS: BP 123/63; PULSE 65; RESP 16
--- NOTE | 2018-10-13 18:16 | NUR ---
PATIENT SAFETY MAINTAINED. PATIENT ABLE TO WALK TO BATHROOM, STEADY. BLOOD GLUCOSE LEVELS WERE ELEVATED, INSULIN ORDERS WERE ADJUSTED BY MD. PATIENT WENT DOWN FOR MRCP AND FOR CT SCAN. DR. COLORADO SPOKE WITH FAMILY REGARDING THE RESULTS OF THE ERCP. PATIENT'S DAUGHTER GIOVANNY STATED THAT SHE WOULD LIKE TO TALK WITH ONCOLOGIST WHEN HE COMES TO SEE PATIENT. PATIENT CARE WILL BE ENDORSE TO ONCOMING NURSE.
[2018-10-13 19:20] VITALS: BP 147/71; PULSE 60; RESP 18
[2018-10-13] MEDS ORDERED: INSULIN GLARGINE [LANTus] (100 UNITS/ML) SYG SC SCH (20:00)
[2018-10-13] MEDS: ATORVASTATIN 20 MG TAB PO SCH (20:05)
[2018-10-14 02:19] VITALS: BP 131/72; PULSE 63; RESP 18
--- NOTE | 2018-10-14 04:50 | NUR ---
SHIFT REPORT: PT STABLE THIS SHIFT. NO SIGN OF DISTRESS NOTED. NO COMPLAINTS OF PAIN. DUE MEDS GIVEN AND TOLERATED WELL. AMBULATED TO THE BATHROOM WITH STEADY GAIT NOTED.NEEDS ATTENDED. CALL LIGHT PLACED WITHIN REACH. WILL CONTINUE TO MONITOR.
[2018-10-14] MEDS: PANTOPRAZOLE (EC) 40 MG TAB PO SCH (05:28)
--- NOTE | 2018-10-14 07:38 | PN ---
DATE: 10/13/2018 The patient at this time has no abdominal pain, admitted with obstructive jaundice due to tumor in th e liver; however, CAT scan, ERCP, MRCP were all performed. MRCP shows evidence of a stricture in the distal common bile duct in the mid to common bile duct, subsequently extending to the hepatic duct a jh as well as the hilum into the gallbladder area. Stent was placed, one into the left duct, one in to the right hepatic duct. MRCP showed a large mass near the gallbladder extending towards the hepat ic ducts as well as the hilum and the CA 19-9, which I ordered yesterday came back at 4640, indicatin g the origin of the tumor as a cholangiocarcinoma. At this time, clinically he is alert, not in distress. At this time, we are waiting for the brushings from the common bile duct stricture and most likely we are dealing with cholangiocarcinoma. At this time, I do not think the patient is operable. PLAN: We will obtain hematology/oncology consultation. Dictated By: RASHMI RAMIREZ/NTS Conf#: [id number] DID#: [id number] CC: LOPEZ FLOWERS MD; TRINY MALAVE;*EndCC*
[2018-10-14 07:55] VITALS: BP 133/75; PULSE 64; RESP 18
[2018-10-14] MEDS: BENAZEPRIL 10 MG TAB PO SCH (08:03)
[2018-10-14] MEDS: URSODIOL 300 MG CAP PO SCH ×3 (08:04→20:52)
[2018-10-14] MEDS: INSULIN ASPART [NOVOLOG] 3 ML PEN SC SCH ×7 (08:25→20:55)
--- NOTE | 2018-10-14 09:34 | NUR ---
DR PETERSEN HERE TO SEE PT, CALLED PT'S DAUGHTER GIOVANNY REQUESTED AND SPOKE WITH HER AND PT AT THE BEDSIDE.
--- NOTE | 2018-10-14 09:37 | EN ---
Date/Time of Note Date/Time of Note DATE: 10/14/18 TIME: 09:30 Event Note Medicine Medicine Event Note Oncology note dictated. 63 y/o with obstructive jaundice due to mass in portahepatis. CA19-9 in markedly elevated and AFP is nl. Pt has had an ERCP and stents placed in both Rt and Lt hepatic ducts. MRI of abd demonstrates thgat abnormality-- including GB. 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 Will request a MRCP. Try to demonstrate whether pt is a surgical candidate or if he will require chemotherapy as the primary treatment. The latter is more likely. CBD brushings and ampullary bx will likely be available in AM. BRYON PETERSEN MD Oct 14, 2018 09:37
--- NOTE | 2018-10-14 10:32 | CONS ---
DATE OF ADMISSION: 10/11/2018 DATE OF CONSULTATION: 10/14/2018 TYPE OF CONSULTATION: MEDICAL ONCOLOGY REQUESTING PHYSICIAN: Dr. Luis Manuel Murray. REASON FOR CONSULTATION: Obstructive jaundice with possible cholangiocarcinoma. Dear Dr. Murray: Thank you very much for asking me to see this very interesting and pleasant patient in oncologic cons ultation. As you know, Mr. Matos is a 63-year-old male who was admitted to [facility] on 10/11/2018. The patient at that time was experiencing diffuse pruritus. This had been pres ent for approximately 3 weeks. The patient also has been experiencing some loss of appetite, which w as accompanied by weight loss. He states that he may have lost as much as 20 pounds in the past 6 we eks. The patient does complain of rather diffuse GI discomfort. This is associated with some nausea and v omiting. The patient states that the pain does not penetrate through to the back or to the shoulders . The patient has no complaints of fevers, chills or night sweats. On admission to the hospital, the patient had a sodium 137, potassium 4, BUN 12, creatinine 0.61, glu cose was 246, total bilirubin 9.4, direct bilirubin 7.0. AST 59, ALT 94, alkaline phosphatase 249, t otal protein 6.7, albumin was 3.7. A hemoglobin A1c was 10.1. The patient did undergo an ERCP performed by Dr. Lynn on 10/12/2018. There was a papillary sphinct erotomy done. There appeared to be a stricture of the common bile duct. There were 2 stents placed in the left hepatic duct and one in the right hepatic duct. As noted, there was a stricture of the c ommon bile duct. Also the ampulla appeared to be quite prominent. Biopsies of the ampulla were done . On 05/13/2018, the total bilirubin was 10.6, direct bilirubin 8.9, AST 45, ALT 70, alkaline phosphata se 257. An alpha fetoprotein done on admission was 2.46 and a CA 19-9 was 4640. Other studies thus far have also included a CT scan of the chest which I ordered on 10/13/2018. This revealed a 3.6 cm subpleural lymph node along the posterior edge of the left major fissure. There w as no evidence of metastatic disease involving the chest. An MRI of the abdomen was done also on . This showed an irregular appearance of the gallbladder wall with ill-defined soft tissue ma ss surrounding the gallbladder and extending into the hepatic hilum and along the course of the commo n bile duct. There was a soft tissue mass which appeared to extend to the liver involving at least h epatic segment 4B. There was cholelithiasis noted. Also moderate intrahepatic biliary duct dilatation involving both he patic lobes. PAST MEDICAL HISTORY: The patient's past history includes a history of coronary artery disease. The patient has had a coronary artery bypass graft surgery approximately 10 years ago. The patient also has had some other type of orthopedic surgery in the past. The patient apparently also has a history of hypertension and possibly diabetes mellitus. MEDICATIONS: At the time of admission are unknown. ALLERGIES: He has no known allergies. It should be noted that the patient did have a CT [facility] This is said to have noted the hypo enhancing mass in the central aspect of the liver. There wa s also an enlarged celiac node which was measured at 2.3 x 1.6 cm, consistent with metastatic involve ment. This is not noted on studies done at [facility]. SOCIAL HISTORY: The patient is . 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 He has not knowingly been exposed to industrial toxins or ionizing radiation. Patient does not smoke now and t he smoking history is somewhat unclear. Denies alcohol use. PHYSICAL EXAMINATION: GENERAL: Reveals a well-developed, well-nourished male in no acute distress. VITAL SIGNS: Temperature 98.2, pulse 64 per minute and regular, respirations 18, blood pressure 133/ 57 and pulse oximetry 96% on room air. SKIN: No ecchymosis, no petechiae or rashes, but there are some areas of excoriation. The patient i s icteric. HEENT: Normocephalic. No evidence of trauma. Pupils equal, round, reactive to light and accommodat ion. Sclerae are markedly icteric. Oral mucosa is moist without lesions. Tongue is well papillated . No gingival hyperplasia, no hypertrophy of Waldeyer ring. NECK: Supple. No jugular venous distention or thyroid enlargement. No carotid bruits. CHEST: Clear to auscultation and percussion. No rhonchi, wheezes, rales or rubs. There is a sterno [place] scar which is well healed. BREASTS: No gynecomastia. HEART: Regular sinus rhythm, no S3, S4 or murmurs. No rubs. NODES: No palpable lymphadenopathy in lymph node bearing area. ABDOMEN: Soft, no masses or ascites. Bowel sounds are active. There is no rebound tenderness. No hernia defects. EXTREMITIES: Good range of motion. No clubbing, no edema or cyanosis. No palpable cords or Homans sign. NEUROLOGIC: Normal. DISCUSSION: This patient has obstructive jaundice, which is due to a mass in the kraig hepatis. At this time, it is unclear if this is a primary cholangiocarcinoma or even a primary gallbladder cancer . The patient has had a biopsy of the ampulla as this did appear somewhat prominent on when Dr. Lynn performed the ERCP. There are also brushings of the common bile duct. It will be important to determine where the primary is and if there is any evidence of metastatic dis ease in order to determine whether or not this patient may be a surgical candidate. If he is a surgical candidate, I feel it would be best for the patient to be seen at a [facility]. If this lesion was not felt to be resectable however, the patient would then require chemotherapy. Treatment of choice at this time would likely include the combination of NAB, paclitaxel and gemcitab ine. In addition, bevacizumab could be added. If there is adequate tissue available, we would perform other genomic studies including and pricila rosatellite instability. The studies may help to determine whether the patient would be a candidate for other agents such as checkpoint inhibitors or EGFR blockers such as Vectbix. At this time, I will order an MRCP to hopefully further delineate the extent and location of this gt or. I have discussed the situation with the patient and his daughter, Susana, who has helped with translati on. Dictated By: BRYON PETERSEN MD SR/NTS Conf#: [id number] DID#: [id number] CC: LUIS MANUEL MURRAY MD; TRINY MALAVE;*EndCC*
--- NOTE | 2018-10-14 12:19 | CONS ---
Date/Time of Note Date/Time of Note DATE: 10/14/18 TIME: 12:18 Assessment/Plan Assessment/Plan Assessment/Plan Preoperative cardiac risk stratification Jaundice CAD with history of CABG Hypertension -Patient status post ERCP. Denies any chest pain, shortness of breath, dizziness or palpitations at rest or with ambulation. Blood pressure trend overall stable. Continue antihypertensives as tolerated, restart aspirin if no plan for any further procedures. Result Diagram: 10/13/18 0622 10/14/18 1044 Results 24hrs Laboratory Tests Test 10/13/18 12:38 10/13/18 17:08 10/13/18 20:04 10/14/18 01:34 Bedside Glucose 284 H 241 H 207 236 H Test 10/14/18 08:02 10/14/18 10:44 Bedside Glucose 211 Sodium Level 137 Potassium Level 4.2 Chloride Level 99 Carbon Dioxide 28 Level Anion Gap 10 Blood Urea 13 Nitrogen Creatinine 0.60 L Est Glomerular > 60 Filtrat Rate mL/min Glucose Level 291 H Calcium Level 9.2 Total Bilirubin 9.3 H Direct Bilirubin 7.80 H Indirect 1.5 H Bilirubin Aspartate Amino 41 Transf (AST/SGOT ) Alanine 60 Aminotransferase (ALT/SGPT) Alkaline 276 H Phosphatase Total Protein 7.1 Albumin 3.5 Globulin 3.60 H Albumin/Globulin 0.97 Ratio Consultation Date/Type/Reason Admit Date/Time Oct 11, 2018 at 19:55 Initial Consult Date Type of Consult cv 24 HR Interval Summary Free Text/Dictation Denies chest pain, shortness of breath, palpitations Exam/Review of Systems Vital Signs Vitals Vital Signs Date Temp Pulse Resp B/P (MAP) Pulse Ox O2 O2 Flow FiO2 Time Delivery Rate 10/14/18 98.2 64 18 133/75 96 Room Air 07:55 (94) 10/12/18 2.0 18:21 Intake and Output 10/13/18 10/13/18 10/14/18 1515:00 23:00 07:00 IntakeIntake Total 1040 ml 480 ml BalanceBalance 1040 ml 480 ml Exam No apparent distress Constitutional: alert, oriented Head: normocephalic Respiratory: clear to auscultation, normal air movement Cardiovascular: regular rate and rhythm, other (S1-S2 heard) Gastrointestinal: soft, non-tender, bowel sounds Extremities: other (No significant edema) Medications Medications Current Medications IV Flush (NS 3 ml) 3 ml PER PROTOCOL IV ; Start 10/11/18 at 23:30 Ondansetron HCl (Zofran Inj) 4 mg Q6H PRN IV NAUSEA AND/OR VOMITING; Start 10/11/18 at 23:30 Acetaminophen (Tylenol Tab) 650 mg Q6H PRN PO PAIN LEVEL 1-3 OR FEVER; Start 10/11/18 at 23:30 Acetaminophen/ Hydrocodone Bitart ([place] (5/325)) 1 tab Q6H PRN PO PAIN LEVEL 4-6; Start 10/11/18 at 23:30 Acetaminophen/ Hydrocodone Bitart ([place] (5/325)) 2 tab Q6H PRN PO PAIN LEVEL 7-10; Start 10/11/18 at 23:30 Pantoprazole (Protonix Tab) 40 mg DAILY@06 PO Last administered on 10/14/18at 05:28; Admin Dose 40 MG; Start 10/12/18 at 06:00 Benazepril HCl (Lotensin) 10 mg DAILY PO Last administered on 10/14/18at 08:03; Admin Dose 10 MG; Start 10/12/18 at 09:00 Atorvastatin Calcium (Lipitor) 20 mg DAILY@21 PO Last administered on 10/13/18at 20:05; Admin Dose 20 MG; Start 10/12/18 at 21:00 Miscellaneous Information 1 ea NOTE XX ; Start 10/12/18 at 02:30 Glucose (Glutose) 15 gm Q15M PRN PO DECREASED GLUCOSE; Start 10/12/18 at 02:30 Glucose (Glutose) 22.5 gm Q15M PRN PO DECREASED GLUCOSE; Start 10/12/18 at 02:30 Dextrose (D50w Syringe) 25 ml Q15M PRN IV DECREASED GLUCOSE; Start 10/12/18 at 02:30 Dextrose (D50w Syringe) 50 ml Q15M PRN IV DECREASED GLUCOSE; Start 10/12/18 at 02:30 Glucagon (Glucagen) 1 mg Q15M PRN IM DECREASED GLUCOSE; Start 10/12/18 at 02:30 Glucose (Glutose) 15 gm Q15M PRN BUCCAL DECREASED GLUCOSE; Start 10/12/18 at 02:30 Diphenhydramine HCl (Benadryl) 25 mg Q6H PRN IV itching Last administered on 10/12/18 07:01; Admin Dose 25 MG; Start 10/12/18 at 07:00 Ursodiol (Actigall) 300 mg TID PO Last administered on 10/14/18 08:04; Admin Dose 300 MG; Start 10/12/18 at 09:00 Insulin Aspart (Novolog Insulin Pen) NOVOLOG *MILD* ALGORITHM WITH MEALS BEDTIME SC Last administered on 10/14/18 08:25; Admin Dose 2 UNIT; Start 10/12/18 at 21:00 Hydralazine HCl (Apresoline) 10 mg Q6H PRN IV SBP ABOVE 170; Start 10/12/18 at 21:00 Insulin Glargine (Lantus) 20 units DAILY@2000 SC Last administered on 10/13/18 20:08; Admin Dose 20 UNITS; Start 10/13/18 at 20:00 Insulin Aspart (Novolog Insulin Pen) 8 unit WITH MEALS SC Last administered on 10/14/18 08:26; Admin Dose 8 UNIT; Start 10/13/18 at 12:00 Hari Khan DO Oct 14, 2018 12:19
--- NOTE | 2018-10-14 13:04 | RADRPT ---
Vent Rate: 64 bpm RR Interval: 0 msec AK Interval: 164 msec QRS Duration: 104 msec QT Interval: 416 msec QTC Interval: 429 msec P-R-T Guild: 56 - -32 - 58 degrees Normal sinus rhythm Left axis deviation Nonspecific T wave abnormality Abnormal ECG Electronically Signed By: Hari Khan [id number]
--- NOTE | 2018-10-14 13:07 | NUR ---
PER MRI, MRCP SCHEDULED FOR 2230 TONIGHT. WILL KEEP PT NPO FOR 4HRS PRIOR. PT AWARE.
--- NOTE | 2018-10-14 14:03 | NUR ---
RADIOLOGY CALLED TO LET THIS NURSE KNOW THAT PT MAY GO FOR MRCP EARLIER THAN 2229, WILL KEEP PT NPO STARTING NOW, PT MADE AWARE.
[2018-10-14] MEDS: LINAGLIPTIN 5 MG TABLET PO SCH (14:15)
[2018-10-14 14:16] VITALS: BP 135/69; PULSE 72; RESP 18
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
--- NOTE | 2018-10-14 17:17 | PN ---
Date/Time of Note Date/Time of Note DATE: 10/14/18 TIME: 17:16 Assessment/Plan VTE Prophylaxis Risk score (from Nsg)>0 risk: 4 SCD applied (from Nsg): Yes Pharmacological prophylaxis: heparin Lines/Catheters IV Catheter Type (from Nrsg): Saline Lock Urinary Cath still in place: No Assessment/Plan Hospital Course 63 yo male with CAD, DMII who presents with painless jaundice and obstructing mass - ERCP with stents placed. 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 Dr Barragan following from oncology DMII; - Basal/bolus insulin with home medications CAD: - Statin Discharge plan pening Result Diagram: 10/13/18 0622 10/14/18 1044 Results 24hrs Laboratory Tests Test 10/13/18 20:04 10/14/18 01:34 10/14/18 08:02 10/14/18 10:44 Bedside Glucose 207 236 H 211 Sodium Level 137 Potassium Level 4.2 Chloride Level 99 Carbon Dioxide 28 Level Anion Gap 10 Blood Urea 13 Nitrogen Creatinine 0.60 L Est Glomerular > 60 Filtrat Rate mL/min Glucose Level 291 H Calcium Level 9.2 Total Bilirubin 9.3 H Direct Bilirubin 7.80 H Indirect 1.5 H Bilirubin Aspartate Amino 41 Transf (AST/SGOT ) Alanine 60 Aminotransferase (ALT/SGPT) Alkaline 276 H Phosphatase Total Protein 7.1 Albumin 3.5 Globulin 3.60 H Albumin/Globulin 0.97 Ratio Test 10/14/18 12:32 10/14/18 14:14 Bedside Glucose 272 H 319 H Subjective 24 Hr Interval Summary Free Text/Dictation Undergoign MRCP today Exam/Review of Systems Vital Signs Vitals Vital Signs Date Temp Pulse Resp B/P (MAP) Pulse Ox O2 O2 Flow FiO2 Time Delivery Rate 10/14/18 97.6 72 18 135/69 99 Room Air 14:16 (91) 10/12/18 2.0 18:21 Intake and Output 10/13/18 10/13/18 10/14/18 1515:00 23:00 07:00 IntakeIntake Total 1040 ml 480 ml BalanceBalance 1040 ml 480 ml Medications Medications Current Medications IV Flush (NS 3 ml) 3 ml PER PROTOCOL IV ; Start 10/11/18 at 23:30 Ondansetron HCl (Zofran Inj) 4 mg Q6H PRN IV NAUSEA AND/OR VOMITING; Start 10/11/18 at 23:30 Acetaminophen (Tylenol Tab) 650 mg Q6H PRN PO PAIN LEVEL 1-3 OR FEVER; Start 10/11/18 at 23:30 Acetaminophen/ Hydrocodone Bitart ([place] (5/325)) 1 tab Q6H PRN PO PAIN LEVEL 4-6; Start 10/11/18 at 23:30 Acetaminophen/ Hydrocodone Bitart ([place] (5/325)) 2 tab Q6H PRN PO PAIN LEVEL 7-10; Start 10/11/18 at 23:30 Pantoprazole (Protonix Tab) 40 mg DAILY@06 PO Last administered on 10/14/18at 05:28; Admin Dose 40 MG; Start 10/12/18 at 06:00 Benazepril HCl (Lotensin) 10 mg DAILY PO Last administered on 10/14/18at 08:03; Admin Dose 10 MG; Start 10/12/18 at 09:00 Atorvastatin Calcium (Lipitor) 20 mg DAILY@21 PO Last administered on 10/13/18at 20:05; Admin Dose 20 MG; Start 10/12/18 at 21:00 Miscellaneous Information 1 ea NOTE XX ; Start 10/12/18 at 02:30 Glucose (Glutose) 15 gm Q15M PRN PO DECREASED GLUCOSE; Start 10/12/18 at 02:30 Glucose (Glutose) 22.5 gm Q15M PRN PO DECREASED GLUCOSE; Start 10/12/18 at 02:30 Dextrose (D50w Syringe) 25 ml Q15M PRN IV DECREASED GLUCOSE; Start 10/12/18 at 02:30 Dextrose (D50w Syringe) 50 ml Q15M PRN IV DECREASED GLUCOSE; Start 10/12/18 at 02:30 Glucagon (Glucagen) 1 mg Q15M PRN IM DECREASED GLUCOSE; Start 10/12/18 at 02:30 Glucose (Glutose) 15 gm Q15M PRN BUCCAL DECREASED GLUCOSE; Start 10/12/18 at 02:30 Diphenhydramine HCl (Benadryl) 25 mg Q6H PRN IV itching Last administered on 10/12/18at 07:01; Admin Dose 25 MG; Start 10/12/18 at 07:00 Ursodiol (Actigall) 300 mg TID PO Last administered on 12/26/18at 12:35; Admin Dose 300 MG; Start 10/12/18 at 09:00 Insulin Aspart (Novolog Insulin Pen) NOVOLOG *MILD* ALGORITHM WITH MEALS BEDTIME SC Last administered on 10/14/18at 12:34; Admin Dose 4 UNIT; Start 10/12/18 at 21:00 Hydralazine HCl (Apresoline) 10 mg Q6H PRN IV SBP ABOVE 170; Start 10/12/18 at 21:00 Insulin Aspart (Novolog Insulin Pen) 12 unit WITH MEALS SC ; Start 10/14/18 at 18:00 Insulin Glargine (Lantus) 25 units DAILY@2000 SC ; Start 10/14/18 at 20:00 Linagliptin (Tradjenta) 5 mg DAILY PO Last administered on 10/14/18at 14:15; Admin Dose 5 MG; Start 10/14/18 at 13:30 Neomycin/ Polymyxin/ Bacitracin (Neosporin Topical Oint) 1 applic BID TOP ; Start 10/14/18 at 21:00 LOPEZ FLOWERS MD Oct 14, 2018 17:17
--- NOTE | 2018-10-14 18:13 | NUR ---
EOSS: PT STABLE THROUGHOUT SHIFT. ALL DUE MEDS GIVEN, HOURLY ROUNDING COMPLETED. PT WENT FOR MRCP, PENDING RESULTS. NO COMPLAINTS OF PAIN THROUGHOUT SHIFT. PT SHOWERED, ALL LINEN CHANGED. WILL ENDORSE CARE OF PT TO ONCOMING BILINGUAL INTERPRETER RN.
[2018-10-14 20:00] VITALS: BP 144/72; PULSE 65; RESP 18
[2018-10-14] MEDS ORDERED: INSULIN GLARGINE [LANTus] (100 UNITS/ML) SYG SC SCH (20:00)
[2018-10-14] MEDS: ATORVASTATIN 20 MG TAB PO SCH (20:52)
[2018-10-14] MEDS: NEOMYC/POLYMYX/BACIT 30 GM OINT TOP SCH (20:55)
[2018-10-15 02:00] VITALS: BP 120/64; PULSE 67; RESP 18
[2018-10-15] MEDS: PANTOPRAZOLE (EC) 40 MG TAB PO SCH (05:40)
--- NOTE | 2018-10-15 06:28 | NUR ---
END OF NOTE: PATIENT ON STABLE CONDITION. NO COMPLAINTS OF PAIN AND SIGNS OF DISTRESS. BLOOD SUGAR ON LEVEL WITH INSULIN COVERAGE. WOUND DRESSING DONE ON LEFT INDEX FINGER. FALL PRECAUTION OBSERVED. CALL LIGHT WITHIN REACH. ALL NEEDS MET.
[2018-10-15 08:00] VITALS: BP 131/75; PULSE 62; RESP 18
[2018-10-15] MEDS: NEOMYC/POLYMYX/BACIT 30 GM OINT TOP SCH ×2 (08:18→20:17)
[2018-10-15] MEDS: LINAGLIPTIN 5 MG TABLET PO SCH (08:18)
[2018-10-15] MEDS: URSODIOL 300 MG CAP PO SCH ×3 (08:18→20:17)
[2018-10-15] MEDS: BENAZEPRIL 10 MG TAB PO SCH (08:19)
[2018-10-15] MEDS: INSULIN ASPART [NOVOLOG] 3 ML PEN SC SCH ×7 (08:21→20:19)
[2018-10-15 14:00] VITALS: BP 139/69; PULSE 85; RESP 18
--- NOTE | 2018-10-15 16:45 | PN ---
Date/Time of Note Date/Time of Note DATE: 10/15/18 TIME: 16:44 Assessment/Plan VTE Prophylaxis Risk score (from Nsg)>0 risk: 4 SCD applied (from Nsg): Yes Pharmacological prophylaxis: heparin Lines/Catheters IV Catheter Type (from Nrsg): Saline Lock Urinary Cath still in place: No Assessment/Plan Hospital Course 63 yo male with CAD, DMII who presents with painless jaundice and obstructing mass - ERCP with stents placed. 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 Dr Barragan following from oncology - Unfortuantely obstructive jaundice has not resolved with stent, but there is no further ability to address this per GI DMII; - Basal/bolus insulin with home medications CAD: - Statin Discharge tomorrow Result Diagram: 10/13/18 0622 10/15/18 1451 Results 24hrs Laboratory Tests Test 10/14/18 17:24 10/14/18 20:50 10/15/18 08:18 10/15/18 11:56 Bedside Glucose 279 H 233 H 182 301 H Test 10/15/18 14:51 Sodium Level 135 Potassium Level 4.0 Chloride Level 96 L Carbon Dioxide 28 Level Anion Gap 11 Blood Urea 13 Nitrogen Creatinine 0.65 Est Glomerular > 60 Filtrat Rate mL/min Glucose Level 247 H Calcium Level 9.3 Total Bilirubin 9.8 H Direct Bilirubin 8.50 H Indirect 1.3 H Bilirubin Aspartate Amino 43 Transf (AST/SGOT ) Alanine 52 Aminotransferase (ALT/SGPT) Alkaline 274 H Phosphatase Total Protein 7.3 Albumin 3.5 Globulin 3.80 H Albumin/Globulin 0.92 Ratio Subjective 24 Hr Interval Summary Free Text/Dictation Patient and daughter still quite anxious. Do not want dc until seen by oncologist tomorrow Exam/Review of Systems Vital Signs Vitals Vital Signs Date Temp Pulse Resp B/P (MAP) Pulse Ox O2 O2 Flow FiO2 Time Delivery Rate 10/15/18 98.1 85 18 139/69 99 Room Air 14:00 (92) 10/12/18 2.0 18:21 Intake and Output 10/14/18 10/14/18 10/15/18 1515:00 23:00 07:00 IntakeIntake Total 700 ml BalanceBalance 700 ml Exam Jaundiced Comfortable appearing No distress Medications Medications Current Medications IV Flush (NS 3 ml) 3 ml PER PROTOCOL IV ; Start 10/11/18 at 23:30 Ondansetron HCl (Zofran Inj) 4 mg Q6H PRN IV NAUSEA AND/OR VOMITING; Start 10/11/18 at 23:30 Acetaminophen (Tylenol Tab) 650 mg Q6H PRN PO PAIN LEVEL 1-3 OR FEVER; Start 10/11/18 at 23:30 Acetaminophen/ Hydrocodone Bitart ([place] (5/325)) 1 tab Q6H PRN PO PAIN LEVEL 4-6; Start 10/11/18 at 23:30 Acetaminophen/ Hydrocodone Bitart ([place] (5/325)) 2 tab Q6H PRN PO PAIN LEVEL 7-10; Start 10/11/18 at 23:30 Pantoprazole (Protonix Tab) 40 mg DAILY@06 PO Last administered on 10/15/18at 05:40; Admin Dose 40 MG; Start 10/12/18 at 06:00 Benazepril HCl (Lotensin) 10 mg DAILY PO Last administered on 10/15/18at 08:19; Admin Dose 10 MG; Start 10/12/18 at 09:00 Miscellaneous Information 1 ea NOTE XX ; Start 10/12/18 at 02:30 Glucose (Glutose) 15 gm Q15M PRN PO DECREASED GLUCOSE; Start 10/12/18 at 02:30 Glucose (Glutose) 22.5 gm Q15M PRN PO DECREASED GLUCOSE; Start 10/12/18 at 02:30 Dextrose (D50w Syringe) 25 ml Q15M PRN IV DECREASED GLUCOSE; Start 10/12/18 at 02:30 Dextrose (D50w Syringe) 50 ml Q15M PRN IV DECREASED GLUCOSE; Start 10/12/18 at 02:30 Glucagon (Glucagen) 1 mg Q15M PRN IM DECREASED GLUCOSE; Start 10/12/18 at 02:30 Glucose (Glutose) 15 gm Q15M PRN BUCCAL DECREASED GLUCOSE; Start 10/12/18 at 02:30 Diphenhydramine HCl (Benadryl) 25 mg Q6H PRN IV itching Last administered on 10/12/18at 07:01; Admin Dose 25 MG; Start 10/12/18 at 07:00 Ursodiol (Actigall) 300 mg TID PO Last administered on 10/15/18at 12:14; Admin Dose 300 MG; Start 10/12/18 at 09:00 Insulin Aspart (Novolog Insulin Pen) NOVOLOG *MILD* ALGORITHM WITH MEALS BEDTIME SC Last administered on 10/15/18at 12:01; Admin Dose 5 UNIT; Start 10/12/18 at 21:00 Hydralazine HCl (Apresoline) 10 mg Q6H PRN IV SBP ABOVE 170; Start 10/12/18 at 21:00 Linagliptin (Tradjenta) 5 mg DAILY PO Last administered on 10/15/18at 08:18; Admin Dose 5 MG; Start 10/14/18 at 13:30 Neomycin/ Polymyxin/ Bacitracin (Neosporin Topical Oint) 1 applic BID TOP Last administered on 10/15/18at 08:18; Admin Dose 1 APPLIC; Start 10/14/18 at 21:00 Insulin Aspart (Novolog Insulin Pen) 15 unit WITH MEALS SC Last administered on 10/15/18at 11:58; Admin Dose 15 UNIT; Start 10/15/18 at 12:00 Insulin Glargine (Lantus) 30 units DAILY@2000 SC ; Start 10/15/18 at 20:00 LOPEZ FLOWERS MD Oct 15, 2018 16:45
--- NOTE | 2018-10-15 16:45 | PN ---
Date/Time of Note Date/Time of Note DATE: 10/15/18 TIME: 16:36 Assessment/Plan VTE Prophylaxis Risk score (from Nsg)>0 risk: 4 SCD applied (from Ns): Yes Pharmacological prophylaxis: other (ambulation) Lines/Catheters IV Catheter Type (from Nrsg): Saline Lock Urinary Cath still in place: No Assessment/Plan Assessment/Plan Discussed with pt and family. Path is not diagnostic but it is suspicious for malignancy. CA 19-9 was >4600. Surgery is not a likely option, so chemotherapy was discussed. We did talk about the incurability of this disease and that chemotherapy can offer palliation. I also mentioned that they could get a second opinion at a tertiary center but they are not able to make decisions now. I suggested that they talk among themselves tonight and with any other family that want to be involved. Dr. Barragan can talk to them tomorrow but will not be here tonight. I did suggest that they start chemotherapy as an outpatient, that it would likely take a couple of months to see a response and that there is little more to be done in the hospital. Result Diagram: 10/13/18 0622 10/15/18 1451 Results 24hrs Laboratory Tests Test 10/14/18 17:24 10/14/18 20:50 10/15/18 08:18 10/15/18 11:56 Bedside Glucose 279 H 233 H 182 301 H Test 10/15/18 14:51 Sodium Level 135 Potassium Level 4.0 Chloride Level 96 L Carbon Dioxide 28 Level Anion Gap 11 Blood Urea 13 Nitrogen Creatinine 0.65 Est Glomerular > 60 Filtrat Rate mL/min Glucose Level 247 H Calcium Level 9.3 Total Bilirubin 9.8 H Direct Bilirubin 8.50 H Indirect 1.3 H Bilirubin Aspartate Amino 43 Transf (AST/SGOT ) Alanine 52 Aminotransferase (ALT/SGPT) Alkaline 274 H Phosphatase Total Protein 7.3 Albumin 3.5 Globulin 3.80 H Albumin/Globulin 0.92 Ratio Subjective 24 Hr Interval Summary Free Text/Dictation Pt remains jaundiced but stable. Discussed with family; daughter acted as wafer slicer. Exam/Review of Systems Vital Signs Vitals Vital Signs Date Temp Pulse Resp B/P (MAP) Pulse Ox O2 O2 Flow FiO2 Time Delivery Rate 10/15/18 98.1 85 18 139/69 99 Room Air 14:00 (92) 10/12/18 2.0 18:21 Intake and Output 10/14/18 10/14/18 10/15/18 1515:00 23:00 07:00 IntakeIntake Total 700 ml BalanceBalance 700 ml Exam Head: normocephalic Eyes: icteric Neck: supple Respiratory: clear to auscultation Cardiovascular: regular rate and rhythm Gastrointestinal: soft, non-tender Medications Medications Current Medications IV Flush (NS 3 ml) 3 ml PER PROTOCOL IV ; Start 10/11/18 at 23:30 Ondansetron HCl (Zofran Inj) 4 mg Q6H PRN IV NAUSEA AND/OR VOMITING; Start 10/11/18 at 23:30 Acetaminophen (Tylenol Tab) 650 mg Q6H PRN PO PAIN LEVEL 1-3 OR FEVER; Start 10/11/18 at 23:30 Acetaminophen/ Hydrocodone Bitart ([place] (5/325)) 1 tab Q6H PRN PO PAIN LEVEL 4-6; Start 10/11/18 at 23:30 Acetaminophen/ Hydrocodone Bitart ([place] (5/325)) 2 tab Q6H PRN PO PAIN LEVEL 7-10; Start 10/11/18 at 23:30 Pantoprazole (Protonix Tab) 40 mg DAILY@06 PO Last administered on 10/15/18at 05:40; Admin Dose 40 MG; Start 10/12/18 at 06:00 Benazepril HCl (Lotensin) 10 mg DAILY PO Last administered on 10/15/18at 08:19; Admin Dose 10 MG; Start 10/12/18 at 09:00 Miscellaneous Information 1 ea NOTE XX ; Start 10/12/18 at 02:30 Glucose (Glutose) 15 gm Q15M PRN PO DECREASED GLUCOSE; Start 10/12/18 at 02:30 Glucose (Glutose) 22.5 gm Q15M PRN PO DECREASED GLUCOSE; Start 10/12/18 at 02:30 Dextrose (D50w Syringe) 25 ml Q15M PRN IV DECREASED GLUCOSE; Start 10/12/18 at 02:30 Dextrose (D50w Syringe) 50 ml Q15M PRN IV DECREASED GLUCOSE; Start 10/12/18 at 02:30 Glucagon (Glucagen) 1 mg Q15M PRN IM DECREASED GLUCOSE; Start 10/12/18 at 02:30 Glucose (Glutose) 15 gm Q15M PRN BUCCAL DECREASED GLUCOSE; Start 10/12/18 at 02:30 Diphenhydramine HCl (Benadryl) 25 mg Q6H PRN IV itching Last administered on 10/12/18at 07:01; Admin Dose 25 MG; Start 10/12/18 at 07:00 Ursodiol (Actigall) 300 mg TID PO Last administered on 10/15/18at 12:14; Admin Dose 300 MG; Start 10/12/18 at 09:00 Insulin Aspart (Novolog Insulin Pen) NOVOLOG *MILD* ALGORITHM WITH MEALS BEDTIME SC Last administered on 10/15/18at 12:01; Admin Dose 5 UNIT; Start 10/12/18 at 21:00 Hydralazine HCl (Apresoline) 10 mg Q6H PRN IV SBP ABOVE 170; Start 10/12/18 at 21:00 Linagliptin (Tradjenta) 5 mg DAILY PO Last administered on 10/15/18at 08:18; Admin Dose 5 MG; Start 10/14/18 at 13:30 Neomycin/ Polymyxin/ Bacitracin (Neosporin Topical Oint) 1 applic BID TOP Last administered on 10/15/18at 08:18; Admin Dose 1 APPLIC; Start 10/14/18 at 21:00 Insulin Aspart (Novolog Insulin Pen) 15 unit WITH MEALS SC Last administered on 10/15/18at 11:58; Admin Dose 15 UNIT; Start 10/15/18 at 12:00 Insulin Glargine (Lantus) 30 units DAILY@2000 SC ; Start 10/15/18 at 20:00 ABHINAV BOYER MD Oct 15, 2018 16:45
[2018-10-15] MEDS: MAGNESIUM HYDROXIDE 30ML CUP PO PRN (17:54)
[2018-10-15 20:00] VITALS: BP 91/57; PULSE 81; RESP 18
[2018-10-15] MEDS ORDERED: INSULIN GLARGINE [LANTus] (100 UNITS/ML) SYG SC SCH (20:00)
[2018-10-16 02:08] VITALS: BP 129/71; PULSE 75; RESP 18
--- NOTE | 2018-10-16 05:06 | NUR ---
END OF SHIFT NOTE: PATIENT HAS BEEN AMBULATING IN THE HALLWAY. NO COMPLAINTS OF PAIN AND NO SIGNS OF DISTRESS. BLOOD SUGAR STILL ON HIGH LEVEL WITH NOVOLOG AND LANTUS COVERAGE. FALL PRECAUTION OBSERVED. ALL NEEDS MET.
[2018-10-16] MEDS: PANTOPRAZOLE (EC) 40 MG TAB PO SCH (05:35)
--- NOTE | 2018-10-16 07:43 | PN ---
DATE: 10/15/2018 The patient at this time complains of little abdominal discomfort, but he has not had a bowel movemen t. Milk of Magnesia was ordered by me. The summary is that patient has obstructive jaundice due to mass in the region of the kraig hepatis. Whether it is gallbladder carcinoma or cholangiocarcinoma i s not very well be determined at this time. He has a very high CA 19-9 level of 4600. The patient w as by Dr. Barragan from hematology/oncology standpoint. There was a repeat MRI ordered by Dr. Barragan which showed evidence of no significant interval change compared to the prior examination indicating that there is irregular soft tissue mass or thickening of the gallbladder extending to the hepatic h ilum segment 4 surrounding the common bile duct. Evaluation was limited. There is a stable moderate intrahepatic dilatation likely due to obstruction by the mass. He also has got cholelithiasis. PHYSICAL EXAMINATION: At this time, examination of the abdomen is unremarkable. LABORATORY WORKUP: WBC count 6900. His bilirubin is in the range of 9.8. It was 9.3 before and bef ore that it was 10.6. Before that, it was 9.4, so essentially it seems to be unchanged. The cytolog y from the common bile duct that was obtained with ERCP showed evidence of ____ suspicious for malign sandra and ampullary biopsy was unremarkable for malignancy. CLINICAL IMPRESSION: The patient has extensive mass near the kraig hepatis. Whether they are origin ating from the gallbladder or common bile duct is not clear, but the distal common bile duct particul emily in the mid half of the distal common bile duct. There was a stricture indicating it is a cholan giocarcinoma and whether this came from the gallbladder or it is originating from the common bile bib t is not very clear. The bilirubin is not concerning significantly because of the extensive tumor in volving the multiple bile ducts. The 2 stents, one in the right and one in left hepatic duct may not be enough and more stents may not be possible ____ because the patient seems to have extensive tumor as noted in the multiple imaging studies. PLAN: The patient is being seen by Dr. Barragan for further management and he even recommended that t he patient would be better served at a tertiary care center that needs to be seen. Dictated By: RASHMI RAMIREZ/DARWIN Conf#: [id number] [facility]#: [id number] CC: TRINY MALAVE; LOPEZ FLOWERS MD;*[facility]*
[2018-10-16 07:53] VITALS: BP 129/73; PULSE 70; RESP 16
[2018-10-16] MEDS: MAGNESIUM HYDROXIDE 30ML CUP PO PRN (07:55)
[2018-10-16] MEDS: URSODIOL 300 MG CAP PO SCH ×2 (08:33→13:22)
[2018-10-16] MEDS: BENAZEPRIL 10 MG TAB PO SCH (08:37)
[2018-10-16] MEDS: NEOMYC/POLYMYX/BACIT 30 GM OINT TOP SCH (08:39)
[2018-10-16] MEDS: INSULIN ASPART [NOVOLOG] 3 ML PEN SC SCH ×4 (08:54→12:43)
--- NOTE | 2018-10-16 10:53 | PN ---
Date/Time of Note Date/Time of Note DATE: 10/16/18 TIME: 10:49 Assessment/Plan VTE Prophylaxis Risk score (from Nsg)>0 risk: 5 SCD applied (from Nsg): No SCD contraindicated: low risk/ambulating Pharmacological prophylaxis: other (ambulation) Lines/Catheters IV Catheter Type (from Nrsg): Saline Lock Urinary Cath still in place: No Assessment/Plan Assessment/Plan Pt and family and I discussed plans again. He can be discharged and will arrange an appointment with Dr. Barragan for next week. PET scan will be arranged as an outpatient. Chemotherapy will be started after that. I again suggested second opinion at a tertiary center if they like. We will send records wherever they like. Result Diagram: 10/13/18 0622 10/15/18 1451 Results 24hrs Laboratory Tests Test 10/15/18 11:56 10/15/18 14:51 10/15/18 17:02 10/15/18 20:15 Bedside Glucose 301 H 222 H 223 H Sodium Level 135 Potassium Level 4.0 Chloride Level 96 L Carbon Dioxide 28 Level Anion Gap 11 Blood Urea 13 Nitrogen Creatinine 0.65 Est Glomerular > 60 Filtrat Rate mL/min Glucose Level 247 H Calcium Level 9.3 Total Bilirubin 9.8 H Direct Bilirubin 8.50 H Indirect 1.3 H Bilirubin Aspartate Amino 43 Transf (AST/SGOT ) Alanine 52 Aminotransferase (ALT/SGPT) Alkaline 274 H Phosphatase Total Protein 7.3 Albumin 3.5 Globulin 3.80 H Albumin/Globulin 0.92 Ratio Test 10/16/18 07:41 10/16/18 08:52 Bedside Glucose 144 198 Subjective 24 Hr Interval Summary Free Text/Dictation Pt is stable. Discussed with pt, and daughter. Exam/Review of Systems Vital Signs Vitals Vital Signs Date Temp Pulse Resp B/P (MAP) Pulse Ox O2 O2 Flow FiO2 Time Delivery Rate 10/16/18 98.1 70 16 129/73 98 Room Air 07:53 (91) 10/12/18 2.0 18:21 Intake and Output 10/15/18 10/15/18 10/16/18 1515:00 23:00 07:00 IntakeIntake Total 1160 ml 480 ml BalanceBalance 1160 ml 480 ml Exam Constitutional: alert, oriented Head: normocephalic Eyes: icteric, other (pallor) Neck: supple, non-tender Respiratory: clear to auscultation Cardiovascular: regular rate and rhythm Gastrointestinal: soft, non-tender Medications Medications Current Medications IV Flush (NS 3 ml) 3 ml PER PROTOCOL IV ; Start 10/11/18 at 23:30 Ondansetron HCl (Zofran Inj) 4 mg Q6H PRN IV NAUSEA AND/OR VOMITING; Start 10/11/18 at 23:30 Acetaminophen (Tylenol Tab) 650 mg Q6H PRN PO PAIN LEVEL 1-3 OR FEVER; Start 10/11/18 at 23:30 Acetaminophen/ Hydrocodone Bitart ([place] (5/325)) 1 tab Q6H PRN PO PAIN LEVEL 4-6 Last administered on 10/16/18at 07:56; Admin Dose 1 TAB; Start 10/11/18 at 23:30 Acetaminophen/ Hydrocodone Bitart ([place] (5/325)) 2 tab Q6H PRN PO PAIN LEVEL 7-10; Start 10/11/18 at 23:30 Pantoprazole (Protonix Tab) 40 mg DAILY@06 PO Last administered on 10/16/18at 05:35; Admin Dose 40 MG; Start 10/12/18 at 06:00 Benazepril HCl (Lotensin) 10 mg DAILY PO Last administered on 10/16/18at 08:37; Admin Dose 10 MG; Start 10/12/18 at 09:00 Miscellaneous Information 1 ea NOTE XX ; Start 10/12/18 at 02:30 Glucose (Glutose) 15 gm Q15M PRN PO DECREASED GLUCOSE; Start 10/12/18 at 02:30 Glucose (Glutose) 22.5 gm Q15M PRN PO DECREASED GLUCOSE; Start 10/12/18 at 02:30 Dextrose (D50w Syringe) 25 ml Q15M PRN IV DECREASED GLUCOSE; Start 10/12/18 at 02:30 Dextrose (D50w Syringe) 50 ml Q15M PRN IV DECREASED GLUCOSE; Start 10/12/18 at 02:30 Glucagon (Glucagen) 1 mg Q15M PRN IM DECREASED GLUCOSE; Start 10/12/18 at 02:30 Glucose (Glutose) 15 gm Q15M PRN BUCCAL DECREASED GLUCOSE; Start 10/12/18 at 02:30 Diphenhydramine HCl (Benadryl) 25 mg Q6H PRN IV itching Last administered on 10/12/18 07:01; Admin Dose 25 MG; Start 10/12/18 at 07:00 Ursodiol (Actigall) 300 mg TID PO Last administered on 10/16/18 08:33; Admin Dose 300 MG; Start 10/12/18 at 09:00 Insulin Aspart (Novolog Insulin Pen) NOVOLOG *MILD* ALGORITHM WITH MEALS BEDTIME SC Last administered on 10/16/18 08:55; Admin Dose 2 UNIT; Start 10/12/18 at 21:00 Hydralazine HCl (Apresoline) 10 mg Q6H PRN IV SBP ABOVE 170; Start 10/12/18 at 21:00 Neomycin/ Polymyxin/ Bacitracin (Neosporin Topical Oint) 1 applic BID TOP Last administered on 10/16/18 08:39; Admin Dose 1 APPLIC; Start 10/14/18 at 21:00 Insulin Aspart (Novolog Insulin Pen) 15 unit WITH MEALS SC Last administered on 10/16/18 08:54; Admin Dose 15 UNIT; Start 10/15/18 at 12:00 Insulin Glargine (Lantus) 30 units DAILY@2000 SC Last administered on 10/15/18 20:18; Admin Dose 30 UNITS; Start 10/15/18 at 20:00 Magnesium Hydroxide (Milk Of Mag) 30 ml DAILY PRN PO CONSTIPATION Last administered on 10/16/18 07:55; Admin Dose 30 ML; Start 10/15/18 at 18:00 ABHINAV BOYER MD Oct 16, 2018 10:53
--- NOTE | 2018-10-16 11:49 | CONS ---
Date/Time of Note Date/Time of Note DATE: 10/15/18 TIME: 11:47 Assessment/Plan Assessment/Plan Assessment/Plan Late entry for visit 10/15/2018 Preoperative cardiac risk stratification Jaundice CAD with history of CABG Hypertension -Patient status post ERCP. Denies any chest pain, shortness of breath, dizziness or palpitations at rest or with ambulation. Blood pressure trend overall stable. Continue antihypertensives as tolerated, restart aspirin if no plan for any further procedures. Result Diagram: 10/13/18 0622 10/15/18 1451 Results 24hrs Laboratory Tests Test 10/15/18 11:56 10/15/18 14:51 10/15/18 17:02 10/15/18 20:15 Bedside Glucose 301 H 222 H 223 H Sodium Level 135 Potassium Level 4.0 Chloride Level 96 L Carbon Dioxide 28 Level Anion Gap 11 Blood Urea 13 Nitrogen Creatinine 0.65 Est Glomerular > 60 Filtrat Rate mL/min Glucose Level 247 H Calcium Level 9.3 Total Bilirubin 9.8 H Direct Bilirubin 8.50 H Indirect 1.3 H Bilirubin Aspartate Amino 43 Transf (AST/SGOT ) Alanine 52 Aminotransferase (ALT/SGPT) Alkaline 274 H Phosphatase Total Protein 7.3 Albumin 3.5 Globulin 3.80 H Albumin/Globulin 0.92 Ratio Test 10/16/18 07:41 10/16/18 08:52 Bedside Glucose 144 198 Consultation Date/Type/Reason Admit Date/Time Oct 11, 2018 at 19:55 Initial Consult Date Type of Consult cv 24 HR Interval Summary Free Text/Dictation Denies shortness of breath, chest pain or palpitations Exam/Review of Systems Vital Signs Vitals Vital Signs Date Temp Pulse Resp B/P (MAP) Pulse Ox O2 O2 Flow FiO2 Time Delivery Rate 10/16/18 98.1 70 16 129/73 98 Room Air 07:53 (91) 10/12/18 2.0 18:21 Intake and Output 10/15/18 10/15/18 10/16/18 1515:00 23:00 07:00 IntakeIntake Total 1160 ml 480 ml BalanceBalance 1160 ml 480 ml Exam Jaundiced, family bedside Constitutional: alert, oriented Head: normocephalic Respiratory: clear to auscultation, normal air movement Cardiovascular: regular rate and rhythm, other (S1-S2 heard) Gastrointestinal: soft, non-tender, bowel sounds Extremities: other (No significant edema) Medications Medications Current Medications IV Flush (NS 3 ml) 3 ml PER PROTOCOL IV ; Start 10/11/18 at 23:30 Ondansetron HCl (Zofran Inj) 4 mg Q6H PRN IV NAUSEA AND/OR VOMITING; Start 10/11/18 at 23:30 Acetaminophen (Tylenol Tab) 650 mg Q6H PRN PO PAIN LEVEL 1-3 OR FEVER; Start 10/11/18 at 23:30 Acetaminophen/ Hydrocodone Bitart ([place] (5/325)) 1 tab Q6H PRN PO PAIN LEVEL 4-6 Last administered on 10/16/18at 07:56; Admin Dose 1 TAB; Start 10/11/18 at 23:30 Acetaminophen/ Hydrocodone Bitart ([place] (5/325)) 2 tab Q6H PRN PO PAIN LEVEL 7-10; Start 10/11/18 at 23:30 Pantoprazole (Protonix Tab) 40 mg DAILY@06 PO Last administered on 10/16/18at 05:35; Admin Dose 40 MG; Start 10/12/18 at 06:00 Benazepril HCl (Lotensin) 10 mg DAILY PO Last administered on 10/16/18at 08:37; Admin Dose 10 MG; Start 10/12/18 at 09:00 Miscellaneous Information 1 ea NOTE XX ; Start 10/12/18 at 02:30 Glucose (Glutose) 15 gm Q15M PRN PO DECREASED GLUCOSE; Start 10/12/18 at 02:30 Glucose (Glutose) 22.5 gm Q15M PRN PO DECREASED GLUCOSE; Start 10/12/18 at 02:30 Dextrose (D50w Syringe) 25 ml Q15M PRN IV DECREASED GLUCOSE; Start 10/12/18 at 02:30 Dextrose (D50w Syringe) 50 ml Q15M PRN IV DECREASED GLUCOSE; Start 10/12/18 at 02:30 Glucagon (Glucagen) 1 mg Q15M PRN IM DECREASED GLUCOSE; Start 10/12/18 at 02:30 Glucose (Glutose) 15 gm Q15M PRN BUCCAL DECREASED GLUCOSE; Start 10/12/18 at 02:30 Diphenhydramine HCl (Benadryl) 25 mg Q6H PRN IV itching Last administered on 10/12/18at 07:01; Admin Dose 25 MG; Start 10/12/18 at 07:00 Ursodiol (Actigall) 300 mg TID PO Last administered on 10/16/18 08:33; Admin Dose 300 MG; Start 10/12/18 at 09:00 Insulin Aspart (Novolog Insulin Pen) NOVOLOG *MILD* ALGORITHM WITH MEALS BEDTIME SC Last administered on 10/16/18 08:55; Admin Dose 2 UNIT; Start 10/12/18 at 21:00 Hydralazine HCl (Apresoline) 10 mg Q6H PRN IV SBP ABOVE 170; Start 10/12/18 at 21:00 Neomycin/ Polymyxin/ Bacitracin (Neosporin Topical Oint) 1 applic BID TOP Last administered on 10/16/18 08:39; Admin Dose 1 APPLIC; Start 10/14/18 at 21:00 Insulin Aspart (Novolog Insulin Pen) 15 unit WITH MEALS SC Last administered o n 10/16/18 08:54; Admin Dose 15 UNIT; Start 10/15/18 at 12:00 Insulin Glargine (Lantus) 30 units DAILY@2000 SC Last administered on 10/15/18 20:18; Admin Dose 30 UNITS; Start 10/15/18 at 20:00 Magnesium Hydroxide (Milk Of Mag) 30 ml DAILY PRN PO CONSTIPATION Last administered on 10/16/18 07:55; Admin Dose 30 ML; Start 10/15/18 at 18:00 Hari Khan DO Oct 16, 2018 11:49
--- NOTE | 2018-10-16 11:51 | CONS ---
Date/Time of Note Date/Time of Note DATE: 10/16/18 TIME: 11:49 Assessment/Plan Assessment/Plan Assessment/Plan Preoperative cardiac risk stratification Jaundice CAD with history of CABG Cardiomyopathy with left ventricular ejection fraction 45% Hypertension -Patient status post ERCP. Denies any chest pain, shortness of breath, dizziness or palpitations at rest or with ambulation. Blood pressure trend overall stable with occasional blood pressure on the lower side. Continue antihypertensives as tolerated, restart aspirin if no plan for any further procedures. If blood pressure remains stable, would consider starting beta- delta. Result Diagram: 10/13/18 0622 10/15/18 1451 Results 24hrs Laboratory Tests Test 10/15/18 11:56 10/15/18 14:51 10/15/18 17:02 10/15/18 20:15 Bedside Glucose 301 H 222 H 223 H Sodium Level 135 Potassium Level 4.0 Chloride Level 96 L Carbon Dioxide 28 Level Anion Gap 11 Blood Urea 13 Nitrogen Creatinine 0.65 Est Glomerular > 60 Filtrat Rate mL/min Glucose Level 247 H Calcium Level 9.3 Total Bilirubin 9.8 H Direct Bilirubin 8.50 H Indirect 1.3 H Bilirubin Aspartate Amino 43 Transf (AST/SGOT ) Alanine 52 Aminotransferase (ALT/SGPT) Alkaline 274 H Phosphatase Total Protein 7.3 Albumin 3.5 Globulin 3.80 H Albumin/Globulin 0.92 Ratio Test 10/16/18 07:41 10/16/18 08:52 Bedside Glucose 144 198 Consultation Date/Type/Reason Admit Date/Time Oct 11, 2018 at 19:55 Initial Consult Date Type of Consult cv 24 HR Interval Summary Free Text/Dictation Patient ambulating without symptoms of chest pain or shortness of breath Exam/Review of Systems Vital Signs Vitals Vital Signs Date Temp Pulse Resp B/P (MAP) Pulse Ox O2 O2 Flow FiO2 Time Delivery Rate 10/16/18 98.1 70 16 129/73 98 Room Air 07:53 (91) 10/12/18 2.0 18:21 Intake and Output 10/15/18 10/15/18 10/16/18 1515:00 23:00 07:00 IntakeIntake Total 1160 ml 480 ml BalanceBalance 1160 ml 480 ml Exam Jaundiced, family at bedside, no apparent distress Constitutional: alert, oriented Head: normocephalic Respiratory: clear to auscultation, normal air movement Cardiovascular: regular rate and rhythm, other (S1-S2 heard) Gastrointestinal: soft, non-tender, bowel sounds Medications Medications Current Medications IV Flush (NS 3 ml) 3 ml PER PROTOCOL IV ; Start 10/11/18 at 23:30 Ondansetron HCl (Zofran Inj) 4 mg Q6H PRN IV NAUSEA AND/OR VOMITING; Start 10/11/18 at 23:30 Acetaminophen (Tylenol Tab) 650 mg Q6H PRN PO PAIN LEVEL 1-3 OR FEVER; Start 10/11/18 at 23:30 Acetaminophen/ Hydrocodone Bitart ([place] (5/325)) 1 tab Q6H PRN PO PAIN LEVEL 4-6 Last administered on 10/16/18at 07:56; Admin Dose 1 TAB; Start 10/11/18 at 23:30 Acetaminophen/ Hydrocodone Bitart ([place] (5/325)) 2 tab Q6H PRN PO PAIN LEVEL 7-10; Start 10/11/18 at 23:30 Pantoprazole (Protonix Tab) 40 mg DAILY@06 PO Last administered on 10/16/18at 05:35; Admin Dose 40 MG; Start 10/12/18 at 06:00 Benazepril HCl (Lotensin) 10 mg DAILY PO Last administered on 10/16/18at 08:37; Admin Dose 10 MG; Start 10/12/18 at 09:00 Miscellaneous Information 1 ea NOTE XX ; Start 10/12/18 at 02:30 Glucose (Glutose) 15 gm Q15M PRN PO DECREASED GLUCOSE; Start 10/12/18 at 02:30 Glucose (Glutose) 22.5 gm Q15M PRN PO DECREASED GLUCOSE; Start 10/12/18 at 02:30 Dextrose (D50w Syringe) 25 ml Q15M PRN IV DECREASED GLUCOSE; Start 10/12/18 at 02:30 Dextrose (D50w Syringe) 50 ml Q15M PRN IV DECREASED GLUCOSE; Start 10/12/18 at 02:30 Glucagon (Glucagen) 1 mg Q15M PRN IM DECREASED GLUCOSE; Start 10/12/18 at 02:30 Glucose (Glutose) 15 gm Q15M PRN BUCCAL DECREASED GLUCOSE; Start 10/12/18 at 02:30 Diphenhydramine HCl (Benadryl) 25 mg Q6H PRN IV itching Last administered on 10/12/18 07:01; Admin Dose 25 MG; Start 10/12/18 at 07:00 Ursodiol (Actigall) 300 mg TID PO Last administered on 10/16/18 08:33; Admin Dose 300 MG; Start 10/12/18 at 09:00 Insulin Aspart (Novolog Insulin Pen) NOVOLOG *MILD* ALGORITHM WITH MEALS BEDTIME SC Last administered on 10/16/18 08:55; Admin Dose 2 UNIT; Start 10/12/18 at 21:00 Hydralazine HCl (Apresoline) 10 mg Q6H PRN IV SBP ABOVE 170; Start 10/12/18 at 21:00 Neomycin/ Polymyxin/ Bacitracin (Neosporin Topical Oint) 1 applic BID TOP Last administered on 10/16/18 08:39; Admin Dose 1 APPLIC; Start 10/14/18 at 21:00 Insulin Aspart (Novolog Insulin Pen) 15 unit WITH MEALS SC Last administered on 10/16/18 08:54; Admin Dose 15 UNIT; Start 10/15/18 at 12:00 Insulin Glargine (Lantus) 30 units DAILY@2000 SC Last administered on 10/15/18 20:18; Admin Dose 30 UNITS; Start 10/15/18 at 20:00 Magnesium Hydroxide (Milk Of Mag) 30 ml DAILY PRN PO CONSTIPATION Last a dministered on 10/16/18 07:55; Admin Dose 30 ML; Start 10/15/18 at 18:00 Hari Khan DO Oct 16, 2018 11:51
--- NOTE | 2018-10-16 13:00 | NUR ---
Diabetes Education Referral: Thank you for the referral. R: Upon discharge, pt's insurance covers Basaglar and Admelog. Consider continuing Linagliptin. HbA1c 10.1%; 80kg; BMI 27; Cr 0.60; Admitting serum glucose 246 mg/dl Pt stated he has had T2DM for about 7-8 years. With the use of daughter (Susana) translating, pt stated after he was diagnosed he used insulin for a couple months then transitioned to pills. Prior to this admission pt was taking Amaryl 4 mg daily, Linagliptin, and Metformin. With the use of handouts discussed at length with patient and family at bedside how diabetes works in the body, where the glucose comes from, how food breaks down into glucose, and how different insulins (Basaglar and Admelog) work. Reviewed glucose targets (pre and post meal), reviewed the different food groups and when/how to manage glucose by adjusting the carbohydrates and proteins. Discussed how an increase in activity can assist in lowering glucose levels. Reviewed signs and symptoms of hypoglycemia and treatment. After eligibility check, pt provided a Freestyle Lite glucometer. Reviewed how to use glucometer, change date and time, load lancet devices and how to correctly complete a glucose reading. Pt completed a finger stick, current result 234 mg/dl. Reviewed the correct injection technique using demo insulin pen and Renu pen needle. Discussed timing of the insulins, locations of administration, to rotate the administration site, proper storage of the insulin, and to never inject insulin cold. Pt declined a return demonstration. Resources were given to pt for future follow up. All questions answered.
[2018-10-16 14:11] VITALS: BP 134/65; PULSE 76; RESP 18
[2018-10-16] MEDS ORDERED: INSU100I33 SC (15:23)
[2018-10-16] MEDS ORDERED: URSO300C21 PO (15:23)
[2018-10-16] MEDS ORDERED: NOVO3I SC (15:23)
--- NOTE | 2018-10-16 15:24 | PDOCDIS ---
Discharge Instructions DIAGNOSIS Discharge Diagnosis Gall bladder cancer CONDITION [id number] Patient Condition: [id number] Stable HOME CARE INSTRUCTIONS: [id number] Special Diet: [id number] Full Liquid FOLLOW UP/APPOINTMENTS Follow-up Plan Make an appointment to see your oncologist Dr Barragan next week Start taking insulin as prescribed. Stop taking your previous medications It is important to see your primary doctor to manage your diabetes LOPEZ FLOWERS MD Oct 16, 2018 15:24
--- NOTE | 2018-10-16 15:55 | DS ---
Date/Time of Note Date/Time of Note DATE: 10/16/18 TIME: 15:52 Discharge Summary Admission/Discharge Info Admit Date/Time Oct 11, 2018 at 19:55 Discharge Date/Time Discharge Diagnosis Gall bladder cancer Patient Condition: Stable Hospital Course 63 yo male with CAD, DMII who presents with painless jaundice and obstructing mass Imaging showed a mass at the head of the pancreas . An ERCP was performed and stents were placed to bilateral hepatic ducts. Bilirubins remained elevated post procedure but there was not further procedure to be done. Biopsy taken which was notable for atypical cells but without definitive diagnosis. Has [place] tumor by imaging. He was seen by oncology who recommended outpatient initiation of chemotherapy and suggested a PET-CT. CT chest was negative for thoracic metastasis. Patient had hyperglycemia and was managed with insulin. Discharged on lantus 30 and 10 [facility] Home Meds Reported Medications Linagliptin (TRADJENTA) 5 Mg Tablet, 5 MG PO DAILY, TAB 10/11/18 Simvastatin (Simvastatin) 40 Mg Tablet, 40 MG PO DAILY, #30 TAB 10/11/18 Benazepril Hcl* (Benazepril Hcl*) 10 Mg Tablet, 10 MG PO DAILY, #30 TAB 10/11/18 Glimepiride* (Amaryl*) 4 Mg Tablet, 4 MG PO DAILY, TAB 10/11/18 Metformin Hcl* (Metformin Hcl*) 850 Mg Tablet, 850 MG PO BID, #30 TAB 10/11/18 Linagliptin (TRADJENTA) 5 Mg Tablet, 5 MG PO DAILY, TAB 10/11/18 [Unknown] No Conflict Check 12/04/09 Discontinued Reported Medications Aspirin* (Aspirin* EC) 81 Mg Tablet.dr, 81 MG PO DAILY, TAB 03/11/16 Ramipril (Ramipril) 5 Mg Capsule, 5 MG PO DAILY, CAP 03/11/16 Glyburide, Micro/Metformin Hcl (Glyburide-Metformin) 2.5-500 Tab, 1 TAB PO DAILY, TAB 03/11/16 Metoprolol Tartrate* (Lopressor*) 25 Mg Tab, 25 MG PO DAILY, #60 TAB 03/11/16 Discontinued Scripts Acetaminophen* (Tylophen*) 500 Mg Capsule, 1 CAP PO Q6H PRN for PAIN AND OR ELEVATED TEMP, #30 CAP Prov:LISA NICHOLS PA-C 05/28/16 Acetaminophen-Codeine* (Acetaminophen-Cod #3*) 300-30 Mg Tab, 1 TAB PO Q4H PRN for PAIN, #10 TAB Prov:AUSTIN ALVA MD 05/20/16 Erythromycin (Erythromycin Opth) 3.5 Gm Oint..gm., 1 APPLIC LEFT EYE QID for 7 Days, EA Prov:AUSTIN ALVA MD 05/20/16 Follow-up Plan Make an appointment to see your oncologist Dr Barragan next week Start taking insulin as prescribed. Stop taking your previous medications It is important to see your primary doctor to manage your diabetes Primary Care Provider Not On Staff Doctor Pending Labs Laboratory Tests Test 10/15/18 17:02 10/15/18 20:15 10/16/18 07:41 10/16/18 08:52 Bedside 222 223 144 198 Glucose mg/dL (70-220) mg/dL (70-220) mg/dL (70-220) mg/dL (70-220) Test 10/16/18 12:41 Bedside 213 Glucose mg/dL (70-220) LOPEZ FLOWERS MD Oct 16, 2018 15:55
--- NOTE | 2018-10-16 16:34 | NUR ---
Discharge Summary Patient alert and oriented and in no acute distress. Vital signs stable. IV and ID removed. Patient and family verbalized understanding of all discharge instructions including follow ups and medications. Belongings including clothes and cell phone taken with patient. Patient escorted to private vehicle accompanied by family headed for home.
== END 2018-10-16 16:28 | disposition home or self-care (01) | DRG 435 ==
LOC: MS1 19:55 → 5EC 22:56
PROVIDERS: ADMIT Hospitalist; ATTEND Internal Medicine
PROC: 0FD98ZX Extraction of Common Bile Duct, Via Natural or Artificial Opening Endoscopic, Diagnostic (ICD-10-PCS; 2018-10-12)
PROC: 0F758DZ Dilation of Right Hepatic Duct with Intraluminal Device, Via Natural or Artificial Opening Endoscopic (ICD-10-PCS; 2018-10-12)
PROC: 0F768DZ Dilation of Left Hepatic Duct with Intraluminal Device, Via Natural or Artificial Opening Endoscopic (ICD-10-PCS; principal; 2018-10-12 17:30)
DX: C23 Malignant neoplasm of gallbladder (principal); K83.1 Obstruction of bile duct; I42.9 Cardiomyopathy, unspecified; I10 Essential (primary) hypertension; E11.9 Type 2 diabetes mellitus without complications; I25.10 Atherosclerotic heart disease of native coronary artery without angina pectoris; E78.5 Hyperlipidemia, unspecified; Z95.1 Presence of aortocoronary bypass graft
CPT/HCPCS: 71250; 74181; 74330; 80053; 82105; 82962; 83036; 85025; 85610; 85730; 86301; 88104; 88305; 93005; 93306; 97161; C2617; J0690; J1100; J1200; J1815; J2250; J2370; J2405; J2765; J3010; J7042

== ENCOUNTER 2018-12-03 15:58 | Inpatient (IN) | payer OTHER ==
[~2018-12-03] VITALS: Ht 167.6 cm; Wt 70.0 kg
[~2018-12-03 15:58] MED LIST changes: -ACET1TAB40 PO; -ACET500C5 PO; -ASPI-817 PO; -ERYT1OIN6 LEFT EYE; -GLYB1TAB2 PO; +INSU100I33 SC; -METO-448 PO; +NOVO3I SC; -RAMI5CAP64 PO; -TRAM50TA2 PO; +URSO300C21 PO
[2018-12-03] MEDS: SOD CHLORIDE 0.9% 1,000 ML IV SCH (18:55)
[2018-12-03] MEDS ORDERED: HYDROCODONE/APAP (5/325) TAB PO PRN (19:00)
[2018-12-03] MEDS ORDERED: morphine 2 MG INJ IV PRN (19:00)
[2018-12-03] MEDS ORDERED: NACL 0.9% 3 ML SYG IV SCH (19:00)
[2018-12-03] MEDS ORDERED: ACETAMINOPHEN 325 MG TAB PO PRN (19:00)
[2018-12-03] MEDS ORDERED: ONDANSETRON 4 MG INJ IV PRN (19:00)
[2018-12-03] MEDS ORDERED: GLUCOSE GEL 15 GRAM TUBE PO PRN ×2 (19:30)
[2018-12-03] MEDS ORDERED: DEXTROSE 50% 50 ML SYRINGE IV PRN ×2 (19:30)
[2018-12-03] MEDS ORDERED: GLUCAGON 1 MG INJ IM PRN (19:30)
[2018-12-03] MEDS ORDERED: GLUCOSE GEL 15 GRAM TUBE BUCCAL PRN (19:30)
[2018-12-03 20:07] VITALS: BP 104/59; PULSE 61; RESP 18
[2018-12-03] MEDS: HEPARIN 5,000 UNIT/1 ML VIAL SC SCH (20:46)
[2018-12-03] MEDS: INSULIN ASPART [NOVOLOG] 3 ML PEN SC SCH (21:00)
[2018-12-03 23:14] VITALS: Ht 167.6 cm; Wt 70.0 kg
--- NOTE | 2018-12-04 00:24 | HP ---
Date/Time of Note Date/Time of Note DATE: 12/04/18 TIME: 00:24 Assessment/Plan VTE Prophylaxis Risk score (from Nsg)>0 risk: 6 SCD applied (from Nsg): Yes Pharmacological prophylaxis: other Lines/Catheters IV Catheter Type (from Nrsg): Peripheral IV Urinary Cath still in place: No Assessment/Plan Hospital Course Objective Physical exam General: Patient is laying in bed and answers questions appropriately Mentation: Patient is alert and oriented 4, Head: Normocephalic atraumatic Eyes: EOMI, pupils reactive to light Neck: Supple, nontender, midline Respiratory: Clear to auscultation bilaterally Cardiovascular: regular rate, no obvious murmurs Gastrointestinal: Tender to palpation, bowel sounds heard. Neurological: Moves all extremities spontaneously Skin: No new skin lesions Assessment and plan Gastric outlet obstruction -Likely secondary to worsening cholangiocarcinoma, seen on CT scan done at other facility which states that mass appears to be enlarging and blocking the GD junction -Day team physician to consult GI -N.p.o. -IV fluid -Labs from outside facility are fairly unremarkable, do show a mild elevation in total bilirubin of 2.5 Cholangiocarcinoma -Seen by cripple worker oncology in the outpatient setting, per patient has already received chemo twice -Will defer to day team regarding if they want to consult patient's oncologist are not. Fever -As high as 101 at outside facility, unknown source, possibly viral or reactive. We will continue Zosyn for now, reassess in the a.m. Diabetes mellitus -Insulin sliding scale Disposition -Await for day team to consult GI and their recommendations regarding gastric outlet obstruction. Results 24hrs Laboratory Tests Test 12/03/18 21:38 Bedside Glucose 108 HPI/ROS Admit Date/Time Admit Date/Time Dec 03, 2018 at 18:07 Hx of Present Illness Patient is a male with a past medical history significant for recently diagnosed cholangiocarcinoma who presents to [facility] as a transfer from outside facility where he originally presented for generalized weakness, fever and inability to tolerate p.o. intake as he would vomit after eating. Patient states that he has been getting chemotherapy from Dr. Hernandes, however currently is not able to tolerate oral intake. Patient states that he has fairly persistent abdominal pain however his new complaint is generalized weakness with fever. Patient currently feels less feverish however still has the abdominal pain and inability to tolerate p.o. Patient denies chest pain, shortness of breath, headache, leg pain. PMH/Family/Social Past Medical History Medications Current Medications Sodium Chloride 1,000 ml @ 100 mls/hr Q10H IV Last administered on 12/03/18at 18:55; Admin Dose 100 MLS/HR; Start 12/03/18 at 18:55 IV Flush (NS 3 ml) 3 ml PER PROTOCOL IV ; Start 12/03/18 at 19:00 Ondansetron HCl (Zofran Inj) 4 mg Q6H PRN IV NAUSEA/VOMITING; Start 12/03/18 at 19:00 Acetaminophen (Tylenol Tab) 650 mg Q6H PRN PO .PAIN 1-3 OR TEMP; Start 12/03/18 at 19:00 Acetaminophen/ Hydrocodone Bitart ([place] (5/325)) 1 tab Q6H PRN PO .MOD PAIN 4- 6; Start 12/03/18 at 19:00 Morphine Sulfate (morphine) 2 mg Q4H PRN IV .SEVERE PAIN 7-10; Start 12/03/18 at 19:00 Heparin Sodium (Porcine) (Heparin (5000 Units/1ml)) 5,000 unit Q12 SC Last administered on 12/03/18at 20:46; Admin Dose 5,000 UNIT; Start 12/03/18 at 21:00 Diagnostic Test (Pha) (Accu-Chek) 1 ea 02 XX ; Start 12/04/18 at 02:00 Insulin Aspart (Novolog Insulin Pen) NOVOLOG *MILD* ALGORI... Q4 SC ; Start 12/03/18 at 21:00 Miscellaneous Information 1 ea NOTE XX ; Start 12/03/18 at 19:30 Glucose (Glutose) 15 gm Q15M PRN PO DECREASED GLUCOSE; Start 12/03/18 at 19:30 Glucose (Glutose) 22.5 gm Q15M PRN PO DECREASED GLUCOSE; Start 12/03/18 at 19:30 Dextrose (D50w Syringe) 25 ml Q15M PRN IV DECREASED GLUCOSE; Start 12/03/18 at 19:30 Dextrose (D50w Syringe) 50 ml Q15M PRN IV DECREASED GLUCOSE; Start 12/03/18 at 19:30 Glucagon (Glucagen) 1 mg Q15M PRN IM DECREASED GLUCOSE; Start 12/03/18 at 19:30 Glucose (Glutose) 15 gm Q15M PRN BUCCAL DECREASED GLUCOSE; Start 12/03/18 at 1 9:30 Piperacillin Sod/ Tazobactam Sod 100 ml @ 200 mls/hr Q6 IVPB ; Start 12/04/18 at 00:30 Coded Allergies: No Known Allergy (Verified , 03/11/16) Past Surgical History Past Surgical Hx: coronary bypass surgery, other Family History Significant Family History: no pertinent family hx Social History Smoking Status: Never smoker Exam/Review of Systems Vital Signs Vitals Vital Signs Date Temp Pulse Resp B/P (MAP) Pulse Ox O2 O2 Flow FiO2 Time Delivery Rate 12/03/18 98.1 61 18 104/59 98 20:07 (74) Intake and Output 12/03/18 12/03/18 12/04/18 1515:00 23:00 07:00 OutputOutput Total 150 ml BalanceBalance -150 ml JORDI REYNOLDS Dec 04, 2018 00:24
[2018-12-04] MEDS: PIPER-TAZO 3.375 GM IV (PMX) 100 ML IVPB SCH ×4 (00:30→17:38)
[2018-12-04] MEDS: INSULIN ASPART [NOVOLOG] 3 ML PEN SC SCH ×6 (01:00→21:00)
[2018-12-04] MEDS: ACCU-CHEK XX SCH (01:42)
[2018-12-04 02:04] VITALS: BP 111/58; PULSE 83; RESP 18
[2018-12-04] MEDS: SOD CHLORIDE 0.9% 1,000 ML IV SCH ×4 (04:55→19:50)
[2018-12-04 07:44] VITALS: BP 115/63; PULSE 65; RESP 19
[2018-12-04] MEDS: HEPARIN 5,000 UNIT/1 ML VIAL SC SCH ×2 (08:26→22:01)
--- NOTE | 2018-12-04 13:02 | PN ---
Date/Time of Note Date/Time of Note DATE: 12/04/18 TIME: 12:54 Assessment/Plan VTE Prophylaxis Risk score (from Ns)>0 risk: 4 SCD applied (from Ns): Yes Pharmacological prophylaxis: heparin Lines/Catheters IV C[facility]ter Type (from [facility] Peripheral IV Urinary Cath still in place: No Assessment/Plan Hospital Course 63 yo male with h/o cholangiocarcinoma with biliary obstruction. s/p ERCP with stent placed here. Then repeat obstruction and stent replaced at [facility] last week. Has received 2 doses chemo. Now returns with inability to tolerate PO and sepsis. Found to have gastric obstruction from tumor burden. Also sepsis from GNR bacteremia Gastric outlet obstruction - Continue IV fluids for now - Dr Lynn consulted for guidance from GI Cholangiocarcinoma: - Dr Leavitt contacted GNR bacteremia with sepsis: - Continue zoysn. ID consultation - Follow cultures DMII: - insulin scale Discharge when stable Result Diagram: 12/04/1852312/04/1824 Results 24hrs Laboratory Tests Test 12/03/18 21:38 12/04/18 00:24 12/04/18 00:25 12/04/18 00:56 Bedside Glucose 108 117 White Blood Count 4.9 # Red Blood Count 3.23 #L Hemoglobin 9.6 #L Hematocrit 28.8 L Mean Corpuscular 89.2 Volume Mean Corpuscular 29.7 Hemoglobin Mean Corpuscular 33.3 Hemoglobin Concent Red Cell 16.4 H Distribution Width Platelet Count 311 Mean Platelet Volume 9.4 Immature 0.400 Granulocytes % Neutrophils % 78.6 H Lymphocytes % 11.0 L Monocytes % 9.4 Eosinophils % 0.2 Basophils % 0.4 Nucleated Red Blood 0.0 Cells % Immature 0.020 Granulocytes # Neutrophils # 3.9 Lymphocytes # 0.5 L Monocytes # 0.5 Eosinophils # 0.0 Basophils # 0.0 Nucleated Red Blood 0.0 Cells # Sodium Level 135 Potassium Level 3.5 Chloride Level 102 Carbon Dioxide Level 24 Anion Gap 9 Blood Urea Nitrogen 9 Creatinine 0.61 Est Glomerular > 60 Filtrat Rate mL/min Glucose Level 109 Calcium Level 8.6 Total Bilirubin 0.6 Direct Bilirubin 0.00 Indirect Bilirubin 0.6 Aspartate Amino 37 Transf (AST/SGOT) Alanine 22 Aminotransferase (AL T/SGPT) Alkaline Phosphatase 103 Total Protein 6.2 Albumin 3.1 L Globulin 3.10 Albumin/Globulin 1.00 Ratio Test 12/04/18 05:24 12/04/18 05:27 12/04/18 08:24 White Blood Count 5.1 Red Blood Count 3.08 L Hemoglobin 9.1 L Hematocrit 27.7 L Mean Corpuscular 89.9 Volume Mean Corpuscular 29.5 Hemoglobin Mean Corpuscular 32.9 Hemoglobin Concent Red Cell 16.4 H Distribution Width Platelet Count 302 Mean Platelet Volume 9.8 Immature 0.600 H Granulocytes % Neutrophils % Segmented 59 Neutrophils % (Manual) Band Neutrophils % 8 H (Manual) Lymphocytes % Lymphocytes % 22 (Manual) Monocytes % Monocytes % (Manual) 9 Eosinophils % Eosinophils % 2 (Manual) Basophils % Nucleated Red Blood 1 H Cells % Immature 0.030 Granulocytes # Neutrophils # Neutrophils # 3.0 (Manual) Band Neutrophils # 0.4 Lymphocytes (Manual) 1.1 Lymphocytes # Monocytes # Monocytes # (Manual) 0.4 Eosinophils # Basophils # Nucleated Red Blood Cells # Platelet Estimate NORMAL Giant Platelets 1 H Polychromasia 3+ Poikilocytosis 1+ Anisocytosis 2+ Microcytosis 2+ Sodium Level 137 Potassium Level 3.6 Chloride Level 104 Carbon Dioxide Level 26 Anion Gap 7 Blood Urea Nitrogen 9 Creatinine 0.64 Est Glomerular > 60 Filtrat Rate mL/min Glucose Level 120 Calcium Level 8.6 Phosphorus Level 4.2 Magnesium Level 1.8 Bedside Glucose 120 123 Subjective 24 Hr Interval Summary Free Text/Dictation Pain controlled Sepsis resolved Exam/Review of Systems Exam Vitals Vital Signs Date Temp Pulse Resp B/P (MAP) Pulse Ox O2 O2 Flow FiO2 Time Delivery Rate 12/04/18 98.4 65 19 115/63 100 07:44 (80) Intake and Output 12/03/18 12/03/18 12/04/18 1515:00 23:00 07:00 OutputOutput Total 150 ml 750 ml BalanceBalance -150 ml -750 ml Exam NG tube in place Appears comfortable pleasant and interactive RRR CTAB Abd soft nt Ext without edema Results Results 24hrs Laboratory Tests Test 12/03/18 21:38 12/04/18 00:24 12/04/18 00:25 12/04/18 00:56 Bedside Glucose 108 117 White Blood Count 4.9 # Red Blood Count 3.23 #L Hemoglobin 9.6 #L Hematocrit 28.8 L Mean Corpuscular 89.2 Volume Mean Corpuscular 29.7 Hemoglobin Mean Corpuscular 33.3 Hemoglobin Concent Red Cell 16.4 H Distribution Width Platelet Count 311 Mean Platelet Volume 9.4 Immature 0.400 Granulocytes % Neutrophils % 78.6 H Lymphocytes % 11.0 L Monocytes % 9.4 Eosinophils % 0.2 Basophils % 0.4 Nucleated Red Blood 0.0 Cells % Immature 0.020 Granulocytes # Neutrophils # 3.9 Lymphocytes # 0.5 L Monocytes # 0.5 Eosinophils # 0.0 Basophils # 0.0 Nucleated Red Blood 0.0 Cells # Sodium Level 135 Potassium Level 3.5 Chloride Level 102 Carbon Dioxide Level 24 Anion Gap 9 Blood Urea Nitrogen 9 Creatinine 0.61 Est Glomerular > 60 Filtrat Rate mL/min Glucose Level 109 Calcium Level 8.6 Total Bilirubin 0.6 Direct Bilirubin 0.00 Indirect Bilirubin 0.6 Aspartate Amino 37 Transf (AST/SGOT) Alanine 22 Aminotransferase (AL T/SGPT) Alkaline Phosphatase 103 Total Protein 6.2 Albumin 3.1 L Globulin 3.10 Albumin/Globulin 1.00 Ratio Test 12/04/18 05:24 12/04/18 05:27 12/04/18 08:24 White Blood Count 5.1 Red Blood Count 3.08 L Hemoglobin 9.1 L Hematocrit 27.7 L Mean Corpuscular 89.9 Volume Mean Corpuscular 29.5 Hemoglobin Mean Corpuscular 32.9 Hemoglobin Concent Red Cell 16.4 H Distribution Width Platelet Count 302 Mean Platelet Volume 9.8 Immature 0.600 H Granulocytes % Neutrophils % Segmented 59 Neutrophils % (Manual) Band Neutrophils % 8 H (Manual) Lymphocytes % Lymphocytes % 22 (Manual) Monocytes % Monocytes % (Manual) 9 Eosinophils % Eosinophils % 2 (Manual) Basophils % Nucleated Red Blood 1 H Cells % Immature 0.030 Granulocytes # Neutrophils # Neutrophils # 3.0 (Manual) Band Neutrophils # 0.4 Lymphocytes (Manual) 1.1 Lymphocytes # Monocytes # Monocytes # (Manual) 0.4 Eosinophils # Basophils # Nucleated Red Blood Cells # Platelet Estimate NORMAL Giant Platelets 1 H Polychromasia 3+ Poikilocytosis 1+ Anisocytosis 2+ Microcytosis 2+ Sodium Level 137 Potassium Level 3.6 Chloride Level 104 Carbon Dioxide Level 26 Anion Gap 7 Blood Urea Nitrogen 9 Creatinine 0.64 Est Glomerular > 60 Filtrat Rate mL/min Glucose Level 120 Calcium Level 8.6 Phosphorus Level 4.2 Magnesium Level 1.8 Bedside Glucose 120 123 Medications Medication Current Medications Sodium Chloride 1,000 ml @ 100 mls/hr Q10H IV Last administered on 12/04/18at 08:23; Admin Dose 100 MLS/HR; Start 12/03/18 at 18:55 IV Flush (NS 3 ml) 3 ml PER PROTOCOL IV ; Start 12/03/18 at 19:00 Ondansetron HCl (Zofran Inj) 4 mg Q6H PRN IV NAUSEA/VOMITING; Start 12/03/18 at 19:00 Acetaminophen (Tylenol Tab) 650 mg Q6H PRN PO .PAIN 1-3 OR TEMP; Start 12/03/18 at 19:00 Acetaminophen/ Hydrocodone Bitart ([place] (5/325)) 1 tab Q6H PRN PO .MOD PAIN 4- 6; Start 12/03/18 at 19:00 Morphine Sulfate (morphine) 2 mg Q4H PRN IV .SEVERE PAIN 7-10; Start 12/03/18 at 19:00 Heparin Sodium (Porcine) (Heparin (5000 Units/1ml)) 5,000 unit Q12 SC Last administered on 12/04/18at 08:26; Admin Dose 5,000 UNIT; Start 12/03/18 at 21:00 Diagnostic Test (Pha) (Accu-Chek) 1 ea 02 XX ; Start 12/04/18 at 02:00 Insulin Aspart (Novolog Insulin Pen) NOVOLOG *MILD* ALGORI... Q4 SC ; Start 12/03/18 at 21:00 Miscellaneous Information 1 ea NOTE XX ; Start 12/03/18 at 19:30 Glucose (Glutose) 15 gm Q15M PRN PO DECREASED GLUCOSE; Start 12/03/18 at 19:30 Glucose (Glutose) 22.5 gm Q15M PRN PO DECREASED GLUCOSE; Start 12/03/18 at 19:30 Dextrose (D50w Syringe) 25 ml Q15M PRN IV DECREASED GLUCOSE; Start 12/03/18 at 19:30 Dextrose (D50w Syringe) 50 ml Q15M PRN IV DECREASED GLUCOSE; Start 12/03/18 at 19:30 Glucagon (Glucagen) 1 mg Q15M PRN IM DECREASED GLUCOSE; Start 12/03/18 at 19:30 Glucose (Glutose) 15 gm Q15M PRN BUCCAL DECREASED GLUCOSE; Start 12/03/18 at 19:30 Piperacillin Sod/ Tazobactam Sod 100 ml @ 200 mls/hr Q6 IVPB Last administered on 12/04/18at 06:17; Admin Dose 200 MLS/HR; Start 12/04/18 at 00:30 LOPEZ FLOWERS MD Dec 04, 2018 13:02
[2018-12-04 14:08] VITALS: BP 120/62; PULSE 59; RESP 17
--- NOTE | 2018-12-04 14:27 | CONS ---
DATE OF ADMISSION: 12/03/2018 DATE OF CONSULTATION: 12/04/2018 REASON FOR CONSULTATION: Evaluation advanced gallbladder/cholangiocarcinoma. HISTORY OF PRESENT ILLNESS: This is a 63-year-old Luxembourgish gentleman who back in June 2018, dev eloped weakness, fatigue, right upper quadrant abdominal pain, jaundice, dark color urine, pale stool s and weight loss around 5 to 10 pounds. A workup was initiated, went to multiple hospitals includin [facility] in [place], where he was diagnosed with a mass tumor in the biliary tree/gallbladder area. Went to [facility], underwent ERCP and stent placement thereafter re ferred to [facility] for which the stent was changed from plastic to metallic stent and biopsy was done abraham wed poorly differentiated adenocarcinoma, cholangiogram biliary. The patient received 2 small cycles low dose modified cycles of gemcitabine and cisplatin in 10/2018. With good response, the bilirubin went down from 19 down to 2. The patient comes now to [facility] because of the d ifficulty in eating, difficulties with gastric outlet obstruction. Been evaluated by GI. With nause a, vomiting. NG tube was placed at [facility] yesterday, they transferred to [facility]. PAST MEDICAL HISTORY: 1. Coronary artery disease. 2. CABG. 3. Diabetes. 4. Hypertension. 5. Hyperlipidemia. SOCIAL HISTORY: , has 2 daughters, 1 son. FAMILY HISTORY: Positive for cancer, uncle, lung cancer, sister melanoma. PHYSICAL EXAMINATION: HEENT: Mild jaundice. LUNGS: Clear. HEART: Normal S1, S2. ABDOMEN: Distended. Bowel sounds positive +1. NG tube in. ASSESSMENT AND PLAN: A 63-year-old gentleman with inoperable biliary cholangiocarcinoma, poorly diff erentiated, post Port-A-Cath. Has cycle 1 gemcitabine mentasta per protocol, now gastric outlet obst ruction. GI evaluation for probable feeding tube placement versus NG suction. Surgical evaluation i f needed in case of acute abdomen and bypass GI. Dictated By: SAMUEL BURGOS/DARWIN Conf#: [id number] DID#: [id number] CC: DRAKE SULLIVAN MD;*EndCC*
[2018-12-04] MEDS ORDERED: BARIUM SULF 2% 450 ML BTL (BERRY SMOOTHIE) PO ONE (15:30)
[2018-12-04] MEDS ORDERED: IOHEXOL 14.3 MG(I)/ML (ADULT) BTL PO ONE (16:30)
--- NOTE | 2018-12-04 18:19 | CONS ---
DATE OF ADMISSION: 12/03/2018 DATE OF CONSULTATION: 12/04/2018 TYPE OF CONSULTATION: Infectious disease. REASON FOR CONSULTATION: Antibiotic management. HISTORY OF PRESENT ILLNESS: Preeti Mortensen is a 63-year-old [place]ian [place] male with a recent medical history of recently diagnosed cholangiocarcinoma, who presents to [facility] as a tr ansfer from an outside facility where he presented with generalized weakness, fever and inability to tolerate p.o. intake as he would vomit after eating. He has been getting chemotherapy from Dr. James mota. Currently, he is not able to tolerate oral intake. He has fairly persistent abdominal pain. His new complaint is generalized weakness with fever. The patient feels less feverish in the emerge ncy room, but still has abdominal pain and difficulty in tolerating oral intake. PAST MEDICAL HISTORY: Operations: Status post coronary artery bypass surgery. FAMILY HISTORY: Noncontributory. SOCIAL HISTORY: He does not smoke, drink or abuse drugs. ALLERGIES: NONE TO PENICILLIN, SULFA OR FOODS. MEDICATIONS: Per chart. REVIEW OF SYSTEMS: Noncontributory. PHYSICAL EXAMINATION: GENERAL: The patient is lying in bed, appropriate, oriented x3, in no acute distress. VITAL SIGNS: Stable. He is afebrile. SKIN: Without generalized rash. HEENT: Within normal limits. NECK: Supple. LYMPH NODES: None palpable. CHEST: Decreased breath sounds at the bases. HEART: Without murmur or gallop. ABDOMEN: Soft, tender to palpation without rebound. Bowel sounds are heard. EXTREMITIES: Without cyanosis, clubbing or edema. RECTAL AND GENITAL: Deferred. NEUROLOGICAL: No new skin lesions. ANCILLARY LABORATORY DATA: The patient presented with white count of 4.9 and then , H and H of 9.1 and 27.7, platelet count 302,000 with 59 polys, 8 bands. BUN and creatinine is 9/0.64, glucose o f 120. DIAGNOSTIC DATA: There is no recent imaging studies, the last one being 10/14/2018. IMPRESSION AND PLAN: The patient has cholangiocarcinoma with biliary obstruction, status post ERCP w ith stent placed here. Repeat obstruction and stent replaced at [facility] last week. He received 2 doses of chemotherapy. He now returns with inability to tolerate p.o. intake. The patient is also septic . His blood cultures were not done here, but according to Dr. Murray, the patient has gram-negative bacteremia. He was started on Zosyn. He has an NG tube in place today. He appears comfortable. Kain Lynn was consulted for guidance in GI, cholangiocarcinoma with Dr. Bray was contacted and for gram-negative jesus bacteremia, ID was consulted and diabetes mellitus. We will continue him on th is current therapy. We will be happy to follow along in his care. I want to thank the hospitalist f or asking us to see this pushpa gentleman in consultation. Dictated By: TAD HOLT MD, JD/NTS Conf#: [id number] DID#: [id number] CC: DRAKE SULLIVAN MD;*End*
[2018-12-04 19:48] VITALS: BP 120/63; PULSE 63; RESP 18
[2018-12-05] MEDS: PIPER-TAZO 3.375 GM IV (PMX) 100 ML IVPB SCH ×5 (00:19→23:40)
[2018-12-05] MEDS: SOD CHLORIDE 0.9% 1,000 ML IV SCH ×5 (00:55→20:55)
[2018-12-05] MEDS: INSULIN ASPART [NOVOLOG] 3 ML PEN SC SCH ×6 (01:00→21:00)
[2018-12-05] MEDS: ACCU-CHEK XX SCH (01:48)
[2018-12-05 01:55] VITALS: BP 125/58; PULSE 66; RESP 18
[2018-12-05 07:18] VITALS: BP 127/61; PULSE 62; RESP 20
--- NOTE | 2018-12-05 07:45 | PN ---
Date/Time of Note Date/Time of Note DATE: 12/05/18 TIME: 07:41 Assessment/Plan VTE Prophylaxis Risk score (from Ns)>0 risk: 2 SCD applied (from Nsg): Yes Pharmacological prophylaxis: heparin Lines/Catheters IV Catheter Type (from Nrs): Peripheral IV Urinary Cath still in place: No Assessment/Plan Problems: (1) Obstructed, gastric outlet Status: Acute Comment: Patient had CT scan and GI consult but notes are not in the computer medical record at this time. Her course of action today will be predicated upon that. Since he had fevers and cultures performed over [facility] will call there to try and get the microbiology reports to help guide our therapeutics. 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 We will try and make sure that there are not any infectious issues and work with GI to get his GI tract in use. The consult from oncology is noted (3) Diabetes mellitus type 2 in nonobese Status: Chronic Comment: Adequate glycemic control (4) H/O four vessel coronary artery bypass graft Onset Date: ~ 11/2009 Status: Chronic Comment: No evidence of active coronary disease at this time Result Diagram: 12/05/18 0551 12/04/18 0524 Results 24hrs Laboratory Tests Test 12/04/18 08:24 12/04/18 13:01 12/04/18 17:39 12/04/18 21:11 Bedside Glucose 123 107 93 78 Test 12/05/18 01:43 12/05/18 05:36 12/05/18 05:51 Bedside Glucose 85 86 White Blood Count 5.6 Red Blood Count 3.05 L Hemoglobin 9.1 L Hematocrit 27.2 L Mean Corpuscular 89.2 Volume Mean Corpuscular 29.8 Hemoglobin Mean Corpuscular 33.5 Hemoglobin Concent Red Cell 15.7 H Distribution Width Platelet Count 319 Mean Platelet Volume 9.3 Immature 0.400 Granulocytes % Neutrophils % 59.3 Lymphocytes % 22.6 Monocytes % 16.5 H Eosinophils % 0.7 Basophils % 0.5 Nucleated Red Blood 0.0 Cells % Immature 0.020 Granulocytes # Neutrophils # 3.3 Lymphocytes # 1.3 Monocytes # 0.9 Eosinophils # 0.0 Basophils # 0.0 Nucleated Red Blood 0.0 Cells # Subjective 24 Hr Interval Summary Free Text/Dictation Pleasant English speaking gentleman with NG tube in place Constitutional: no complaints (Denies fevers chills or sweats) Respiratory: no complaints Cardiovascular: no complaints Gastrointestinal: pain (Planes of abdominal pain) Genitourinary: no complaints Exam/Review of Systems Exam Vitals Vital Signs Date Temp Pulse Resp B/P (MAP) Pulse Ox O2 O2 Flow FiO2 Time Delivery Rate 12/05/18 98.1 62 20 127/61 100 07:18 (83) Intake and Output 12/04/18 12/04/18 12/05/18 1515:00 23:00 07:00 IntakeIntake Total 1100 ml 1100 ml 1100 ml OutputOutput Total 300 ml BalanceBalance 800 ml 1100 ml 1100 ml Constitutional: alert, oriented Head: normocephalic, atraumatic Eyes: nl conjunctiva, EOMI ENMT: other Respiratory: clear to auscultation, normal air movement Cardiovascular: regular rate and rhythm, nl pulses, other (Midline surgical sternotomy scar) Gastrointestinal: soft, nl liver, spleen, non-tender Results Results 24hrs Laboratory Tests Test 12/04/18 08:24 12/04/18 13:01 12/04/18 17:39 12/04/18 21:11 Bedside Glucose 123 107 93 78 Test 12/05/18 01:43 12/05/18 05:36 12/05/18 05:51 Bedside Glucose 85 86 White Blood Count 5.6 Red Blood Count 3.05 L Hemoglobin 9.1 L Hematocrit 27.2 L Mean Corpuscular 89.2 Volume Mean Corpuscular 29.8 Hemoglobin Mean Corpuscular 33.5 Hemoglobin Concent Red Cell 15.7 H Distribution Width Platelet Count 319 Mean Platelet Volume 9.3 Immature 0.400 Granulocytes % Neutrophils % 59.3 Lymphocytes % 22.6 Monocytes % 16.5 H Eosinophils % 0.7 Basophils % 0.5 Nucleated Red Blood 0.0 Cells % Immature 0.020 Granulocytes # Neutrophils # 3.3 Lymphocytes # 1.3 Monocytes # 0.9 Eosinophils # 0.0 Basophils # 0.0 Nucleated Red Blood 0.0 Cells # Medications Medication Current Medications Sodium Chloride 1,000 ml @ 100 mls/hr Q10H IV Last administered on 12/05/18at 07:27; Admin Dose 100 MLS/HR; Start 12/03/18 at 18:55 IV Flush (NS 3 ml) 3 ml PER PROTOCOL IV ; Start 12/03/18 at 19:00 Ondansetron HCl (Zofran Inj) 4 mg Q6H PRN IV NAUSEA/VOMITING; Start 12/03/18 at 19:00 Acetaminophen (Tylenol Tab) 650 mg Q6H PRN PO .PAIN 1-3 OR TEMP; Start 12/03/18 at 19:00 Acetaminophen/ Hydrocodone Bitart ([place] (5/325)) 1 tab Q6H PRN PO .MOD PAIN 4- 6; Start 12/03/18 at 19:00 Morphine Sulfate (morphine) 2 mg Q4H PRN IV .SEVERE PAIN 7-10; Start 12/03/18 at 19:00 Heparin Sodium (Porcine) (Heparin (5000 Units/1ml)) 5,000 unit Q12 SC Last administered on 12/04/18at 22:01; Admin Dose 5,000 UNIT; Start 12/03/18 at 21:00 Diagnostic Test (Pha) (Accu-Chek) 1 ea 02 XX ; Start 12/04/18 at 02:00 Insulin Aspart (Novolog Insulin Pen) NOVOLOG *MILD* ALGORI... Q4 SC ; Start 12/03/18 at 21:00 Miscellaneous Information 1 ea NOTE XX ; Start 12/03/18 at 19:30 Glucose (Glutose) 15 gm Q15M PRN PO DECREASED GLUCOSE; Start 12/03/18 at 19:30 Glucose (Glutose) 22.5 gm Q15M PRN PO DECREASED GLUCOSE; Start 12/03/18 at 19:30 Dextrose (D50w Syringe) 25 ml Q15M PRN IV DECREASED GLUCOSE; Start 12/03/18 at 19:30 Dextrose (D50w Syringe) 50 ml Q15M PRN IV DECREASED GLUCOSE; Start 12/03/18 at 19:30 Glucagon (Glucagen) 1 mg Q15M PRN IM DECREASED GLUCOSE; Start 12/03/18 at 19:30 Glucose (Glutose) 15 gm Q15M PRN BUCCAL DECREASED GLUCOSE; Start 12/03/18 at 19:30 Piperacillin Sod/ Tazobactam Sod 100 ml @ 200 mls/hr Q6 IVPB Last administered on 12/05/18at 05:34; Admin Dose 200 MLS/HR; Start 12/04/18 at 00:30 KENIA RODRIGUES MD Dec 05, 2018 07:45
[2018-12-05] MEDS: HEPARIN 5,000 UNIT/1 ML VIAL SC SCH ×2 (09:00→21:37)
[2018-12-05] MEDS: BISACODYL 10 MG SUPP PR PRN ×2 (13:08→22:16)
[2018-12-05 14:04] VITALS: BP 123/61; PULSE 65; RESP 18
[2018-12-05 14:37] VITALS: BP 154/70; PULSE 79
--- NOTE | 2018-12-05 17:26 | CONS ---
DATE OF ADMISSION: 12/03/2018 DATE OF CONSULTATION: Dear Dr. Palomo: Thank you for asking me to see Mr. Mortensen in GI consultation. The patient, as you know, is a 63-ye ar-old [place]ian gentleman who is admitted to the hospital because of vomiting. Apparently, he is kno wn to have a cholangiocarcinoma and he had 2 plastic stents put in this hospital, 1 into the left and 1 into the right hepatic duct. Subsequently, he went to [facility]. He had 2 metal stents placed, 1 into the right and 1 into the left hepatic duct. He is being treated with chemotherapy at this time. He has received 2 courses of chemotherapy. CAT scan of the abdomen showed evidence of a cholangiocarcinoma, perhaps invading into the gastroduod enal junction. The images are not available. Other medical problems include diabetes. MEDICATIONS: 1. Zofran. 2. Tylenol. 3. [place]. 4. Morphine. 5. Heparin. PHYSICAL EXAMINATION: GENERAL: The patient is a 63-year-old Albanian gentleman who at this time is alert, well built. VITAL SIGNS: He is afebrile. CARDIOVASCULAR: Normal heart sounds. RESPIRATORY: Normal breath sounds. ABDOMEN: Shows soft abdomen with no palpable masses. No tenderness, no distention. LABORATORY WORKUP: Hemoglobin 9.1, WBC 5600. The potassium is 3.4, bilirubin 0.3, AST is 32, ALT 22, alkaline phosphatase 83. The CAT scan of the abdomen which was ordered by me shows evidence of mild intrahepatic ductal dilatation and with bilat eral endoprosthesis. No gallstones noted. They did not comment on the gastric outlet obstruction findings. CLINICAL IMPRESSION: The patient is presenting with history of repeated vomiting for the past 1 week . No vomiting of blood. No history of passing blood from the rectum. He has history of cholangioca rcinoma which is being treated with chemotherapy and he has got bilateral metal stents, 1 in the left and 1 in the right hepatic duct. PLAN: At this time, recommend nasogastric suction because the CAT scan shows large amount of retaine d food in the stomach and once stomach is decompressed, upper endoscopy will be performed. Once again, doctor, thank you for this consultation. Dictated By: RASHMI RAMIREZ/DARWIN Conf#: [id number] [facility]#: [id number] CC: DRAKE SULLIVAN MD; JORDI PALOMO MD;*[facility]*
--- NOTE | 2018-12-05 18:08 | CONS ---
Assessment/Plan Assessment/Plan Hospital Course (Demo Recall) ID PROGRESS NOTE CURRENT ABX: DAY # Zosyn 24H INTERVAL SUMMARY * Sleeping, VSS, NAD, no fever today -- chart reviewed = pending EGD * 12/04/18 CT ABD-PEL: IMPRESSION: * Mild intrahepatic ductal dilatation in patient with bilateral biliary endoprosthesis. * No gallstones visualize. Sheet-like soft tissue surrounding gallbladder and within the kraig hepatis as seen on recent MRI. Question cholangiocarcinoma versus gallbladder cancer versus metastatic adenopathy. Consider biopsy. * Vascular calcifications. * Left renal cyst. * No evidence of urolithiasis, obstructive uropathy, diverticulitis or appendicitis. * Small right pleural effusion. MICRO * BCX @ [facility] (-) * BCx (+) GNR @ [facility]: Microbiology at the other hospital informs us that his blood cultures are positive for Klebsiella species not Klebsiella pneumoniae PHYSICAL EXAMINATION: GENERAL: Afebrile, VSS HEENT: AT, NC, anicteric NECK: Grossly normal CHEST: Equal chest rise bilaterally = without dyspnea HEART: Pulse RRR ABDOMEN: Deferred, sleeping EXTREMITIES: Warm, SKIN: No rash, no diaphoresis ID ASSESSMENT 63 yo M admit with: (1) SIRS w/Tmax 99.6 on TNS from [facility] * 12/04/18 BCX @ [facility] (-) * BCx (+) GNR @ [facility]: Microbiology at the other hospital informs us that his blood cultures are positive for Klebsiella species not Klebsiella pneumoniae (2) Obstructed, gastric outlet * Status: Acute * Repeat obstruction and stent replaced at [facility] last week (3) Cholangiocarcinoma metastatic to liver * Onset Date: ~ 06/2018 Status: Chronic * s/p 10/12/18 ERCP, sphincterotomy, brushings of the malignant stricture of the bile duct, placement of 2 stents, one into the left hepatic duct and one into the right hepatic duct. (4) Diabetes mellitus type 2 in nonobese * Status: Chronic/Stable (5) H/O four vessel coronary artery bypass graft * Onset Date: ~ 11/2009 Status: Chronic/asymptomatic ABX ALLERGIES: KNDA INVASIVES: PIV CURRENT ABX: DAY # => Zosyn ID RECOMMENDATIONS/PLAN: 1. Continue Zosyn 2. Pending EGD 3. Will f/u tomorrow . Consultation Date/Type/Reason Admit Date/Time Dec 03, 2018 at 18:07 Initial Consult Date Date/Time of Note DATE: 12/05/18 TIME: 18:07 Exam/Review of Systems Exam Vitals Vital Signs Date Temp Pulse Resp B/P (MAP) Pulse Ox O2 O2 Flow FiO2 Time Delivery Rate 12/05/18 79 154/70 14:37 (98) 12/05/18 98.5 18 100 14:04 Intake and Output 12/04/18 12/04/18 12/05/18 1515:00 23:00 07:00 IntakeIntake Total 1100 ml 1100 ml 1100 ml OutputOutput Total 300 ml BalanceBalance 800 ml 1100 ml 1100 ml Results Result Diagram: 12/05/18 0551 12/05/18 0551 Results 24hrs Laboratory Tests Test 12/04/18 21:11 12/05/18 01:43 12/05/18 05:36 12/05/18 05:51 Bedside Glucose 78 85 86 White Blood Count 5.6 Red Blood Count 3.05 L Hemoglobin 9.1 L Hematocrit 27.2 L Mean Corpuscular 89.2 Volume Mean Corpuscular 29.8 Hemoglobin Mean Corpuscular 33.5 Hemoglobin Concent Red Cell 15.7 H Distribution Width Platelet Count 319 Mean Platelet Volume 9.3 Immature 0.400 Granulocytes % Neutrophils % 59.3 Lymphocytes % 22.6 Monocytes % 16.5 H Eosinophils % 0.7 Basophils % 0.5 Nucleated Red Blood 0.0 Cells % Immature 0.020 Granulocytes # Neutrophils # 3.3 Lymphocytes # 1.3 Monocytes # 0.9 Eosinophils # 0.0 Basophils # 0.0 Nucleated Red Blood 0.0 Cells # Sodium Level 137 Potassium Level 3.4 L Chloride Level 106 Carbon Dioxide Level 22 Anion Gap 9 Blood Urea Nitrogen 9 Creatinine 0.58 L Est Glomerular > 60 Filtrat Rate mL/min Glucose Level 81 Calcium Level 8.3 L Total Bilirubin 0.3 Direct Bilirubin 0.00 Indirect Bilirubin 0.3 Aspartate Amino 32 Transf (AST/SGOT) Alanine 22 Aminotransferase (AL T/SGPT) Alkaline Phosphatase 83 Total Protein 5.6 L Albumin 2.8 L Globulin 2.80 Albumin/Globulin 1.00 Ratio Test 12/05/18 09:07 12/05/18 13:12 12/05/18 17:43 Bedside Glucose 86 92 88 Medications Medication Current Medications Sodium Chloride 1,000 ml @ 100 mls/hr Q10H IV Last administered on 12/05/18at 17:44; Admin Dose 100 MLS/HR; Start 12/03/18 at 18:55 IV Flush (NS 3 ml) 3 ml PER PROTOCOL IV ; Start 12/03/18 at 19:00 Ondansetron HCl (Zofran Inj) 4 mg Q6H PRN IV NAUSEA/VOMITING; Start 12/03/18 at 19:00 Acetaminophen (Tylenol Tab) 650 mg Q6H PRN PO .PAIN 1-3 OR TEMP; Start 12/03/18 at 19:00 Acetaminophen/ Hydrocodone Bitart ([place] (5/325)) 1 tab Q6H PRN PO .MOD PAIN 4- 6; Start 12/03/18 at 19:00 Morphine Sulfate (morphine) 2 mg Q4H PRN IV .SEVERE PAIN 7-10; Start 12/03/18 at 19:00 Heparin Sodium (Porcine) (Heparin (5000 Units/1ml)) 5,000 unit Q12 SC Last administered on 12/04/18at 22:01; Admin Dose 5,000 UNIT; Start 12/03/18 at 21:00 Diagnostic Test (Pha) (Accu-Chek) 1 ea 02 XX ; Start 12/04/18 at 02:00 Insulin Aspart (Novolog Insulin Pen) NOVOLOG *MILD* ALGORI... Q4 SC ; Start 12/03/18 at 21:00 Miscellaneous Information 1 ea NOTE XX ; Start 12/03/18 at 19:30 Glucose (Glutose) 15 gm Q15M PRN PO DECREASED GLUCOSE; Start 12/03/18 at 19:30 Glucose (Glutose) 22.5 gm Q15M PRN PO DECREASED GLUCOSE; Start 12/03/18 at 19:30 Dextrose (D50w Syringe) 25 ml Q15M PRN IV DECREASED GLUCOSE; Start 12/03/18 at 19:30 Dextrose (D50w Syringe) 50 ml Q15M PRN IV DECREASED GLUCOSE; Start 12/03/18 at 19:30 Glucagon (Glucagen) 1 mg Q15M PRN IM DECREASED GLUCOSE; Start 12/03/18 at 19:30 Glucose (Glutose) 15 gm Q15M PRN BUCCAL DECREASED GLUCOSE; Start 12/03/18 at 19:30 Piperacillin Sod/ Tazobactam Sod 100 ml @ 200 mls/hr Q6 IVPB Last administered on 12/05/18at 17:44; Admin Dose 200 MLS/HR; Start 12/04/18 at 00:30 Bisacodyl (Dulcolax Supp) 10 mg DAILY PRN [place] CONSTIPATION Last administered on 12/05/18at 13:08; Admin Dose 10 MG; Start 12/05/18 at 12:00 NILO HAWKINS NP Dec 05, 2018 18:07
[2018-12-05 19:34] VITALS: BP 140/65; PULSE 66; RESP 17
[2018-12-06] VITALS (15 sets, daily range): BP systolic 52–152; BP diastolic 52–71; PULSE 61–73; RESP 1–30
[2018-12-06] MEDS: INSULIN ASPART [NOVOLOG] 3 ML PEN SC SCH ×6 (01:00→21:00)
[2018-12-06] MEDS: ACCU-CHEK XX SCH (01:55)
[2018-12-06] MEDS: SOD CHLORIDE 0.9% 1,000 ML IV SCH ×3 (04:10→19:28)
[2018-12-06] MEDS: PIPER-TAZO 3.375 GM IV (PMX) 100 ML IVPB SCH ×3 (05:30→19:33)
[2018-12-06] MEDS: HEPARIN 5,000 UNIT/1 ML VIAL SC SCH ×2 (09:00→20:30)
--- NOTE | 2018-12-06 10:02 | PN ---
Date/Time of Note Date/Time of Note DATE: 12/06/18 TIME: 10:00 Assessment/Plan VTE Prophylaxis Risk score (from Ns)>0 risk: 5 SCD applied (from Ns): Yes Pharmacological prophylaxis: heparin Lines/Catheters IV Catheter Type (from Nrs): Peripheral IV Urinary Cath still in place: No Assessment/Plan Problems: (1) Obstructed, gastric outlet Status: Acute Comment: EGD today. Hopefully will be able to get something past the obstruction so that we can work with his GI tract (2) Cholangiocarcinoma metastatic to liver Onset Date: ~ 06/2018 Status: Chronic Comment: Received 2 rounds of chemotherapy. This is still a non-favorable diagnosis (3) Diabetes mellitus type 2 in nonobese Status: Chronic Comment: Adequate glycemic control (4) H/O four vessel coronary artery bypass graft Onset Date: ~ 11/2009 Status: Chronic Comment: Fortunately fully operational no chest pain Result Diagram: 12/06/18 0551 12/06/18 0551 Results 24hrs Laboratory Tests Test 12/05/18 13:12 12/05/18 17:43 12/05/18 21:34 12/06/18 01:37 Bedside Glucose 92 88 78 87 Test 12/06/18 05:30 12/06/18 05:51 12/06/18 09:33 Bedside Glucose 84 93 White Blood Count 5.5 Red Blood Count 3.20 L Hemoglobin 9.5 L Hematocrit 28.7 L Mean Corpuscular 89.7 Volume Mean Corpuscular 29.7 Hemoglobin Mean Corpuscular 33.1 Hemoglobin Concent Red Cell 15.5 H Distribution Width Platelet Count 371 Mean Platelet Volume 9.7 Immature 0.600 H Granulocytes % Neutrophils % 58.8 Lymphocytes % 25.1 Monocytes % 14.7 H Eosinophils % 0.4 Basophils % 0.4 Nucleated Red Blood 0.0 Cells % Immature 0.030 Granulocytes # Neutrophils # 3.2 Lymphocytes # 1.4 Monocytes # 0.8 Eosinophils # 0.0 Basophils # 0.0 Nucleated Red Blood 0.0 Cells # Prothrombin Time 13.4 Prothrombin Time 1.0 Ratio INR International 1.01 Normalized Ratio Activated 33.1 Partial Thromboplast Time Sodium Level 139 Potassium Level 3.4 L Chloride Level 105 Carbon Dioxide Level 25 Anion Gap 9 Blood Urea Nitrogen 7 Creatinine 0.58 L Est Glomerular > 60 Filtrat Rate mL/min Glucose Level 84 Calcium Level 8.7 Total Bilirubin 0.3 Direct Bilirubin 0.00 Indirect Bilirubin 0.3 Aspartate Amino 26 Transf (AST/SGOT) Alanine 19 Aminotransferase (AL T/SGPT) Alkaline Phosphatase 85 Total Protein 5.7 L Albumin 2.9 L Globulin 2.80 Albumin/Globulin 1.03 Ratio Subjective 24 Hr Interval Summary Free Text/Dictation She reports he is having some abdominal pain but no nausea or vomiting. He is looking forward to having his EGD today Constitutional: no complaints Respiratory: no complaints Cardiovascular: no complaints Gastrointestinal: pain, nausea Genitourinary: no complaints Musculoskeletal: no complaints Exam/Review of Systems Exam Vitals Vital Signs Date Temp Pulse Resp B/P (MAP) Pulse Ox O2 O2 Flow FiO2 Time Delivery Rate 12/06/18 98.5 61 16 135/65 99 07:46 (88) Intake and Output 12/05/18 12/05/18 12/06/18 1515:00 23:00 07:00 IntakeIntake Total 200 ml 1100 ml 1290 ml OutputOutput Total 900 ml 80 ml 900 ml BalanceBalance -700 ml 1020 ml 390 ml Constitutional: alert, oriented Respiratory: clear to auscultation, normal air movement Cardiovascular: regular rate and rhythm, nl pulses Gastrointestinal: soft, nl liver, spleen, non-tender, bowel sounds (Active bowel sounds) Results Results 24hrs Laboratory Tests Test 12/05/18 13:12 12/05/18 17:43 12/05/18 21:34 12/06/18 01:37 Bedside Glucose 92 88 78 87 Test 12/06/18 05:30 12/06/18 05:51 12/06/18 09:33 Bedside Glucose 84 93 White Blood Count 5.5 Red Blood Count 3.20 L Hemoglobin 9.5 L Hematocrit 28.7 L Mean Corpuscular 89.7 Volume Mean Corpuscular 29.7 Hemoglobin Mean Corpuscular 33.1 Hemoglobin Concent Red Cell 15.5 H Distribution Width Platelet Count 371 Mean Platelet Volume 9.7 Immature 0.600 H Granulocytes % Neutrophils % 58.8 Lymphocytes % 25.1 Monocytes % 14.7 H Eosinophils % 0.4 Basophils % 0.4 Nucleated Red Blood 0.0 Cells % Immature 0.030 Granulocytes # Neutrophils # 3.2 Lymphocytes # 1.4 Monocytes # 0.8 Eosinophils # 0.0 Basophils # 0.0 Nucleated Red Blood 0.0 Cells # Prothrombin Time 13.4 Prothrombin Time 1.0 Ratio INR International 1.01 Normalized Ratio Activated 33.1 Partial Thromboplast Time Sodium Level 139 Potassium Level 3.4 L Chloride Level 105 Carbon Dioxide Level 25 Anion Gap 9 Blood Urea Nitrogen 7 Creatinine 0.58 L Est Glomerular > 60 Filtrat Rate mL/min Glucose Level 84 Calcium Level 8.7 Total Bilirubin 0.3 Direct Bilirubin 0.00 Indirect Bilirubin 0.3 Aspartate Amino 26 Transf (AST/SGOT) Alanine 19 Aminotransferase (AL T/SGPT) Alkaline Phosphatase 85 Total Protein 5.7 L Albumin 2.9 L Globulin 2.80 Albumin/Globulin 1.03 Ratio Medications Medication Current Medications Sodium Chloride 1,000 ml @ 100 mls/hr Q10H IV Last administered on 12/06/18at 04:10; Admin Dose 100 MLS/HR; Start 12/03/18 at 18:55 IV Flush (NS 3 ml) 3 ml PER PROTOCOL IV ; Start 12/03/18 at 19:00 Ondansetron HCl (Zofran Inj) 4 mg Q6H PRN IV NAUSEA/VOMITING; Start 12/03/18 at 19:00 Acetaminophen (Tylenol Tab) 650 mg Q6H PRN PO .PAIN 1-3 OR TEMP; Start 12/03/18 at 19:00 Acetaminophen/ Hydrocodone Bitart ([place] (5/325)) 1 tab Q6H PRN PO .MOD PAIN 4- 6; Start 12/03/18 at 19:00 Morphine Sulfate (morphine) 2 mg Q4H PRN IV .SEVERE PAIN 7-10; Start 12/03/18 at 19:00 Heparin Sodium (Porcine) (Heparin (5000 Units/1ml)) 5,000 unit Q12 SC Last administered on 12/05/18at 21:37; Admin Dose 5,000 UNIT; Start 12/03/18 at 21:00 Diagnostic Test (Pha) (Accu-Chek) 1 ea 02 XX ; Start 12/04/18 at 02:00 Insulin Aspart (Novolog Insulin Pen) NOVOLOG *MILD* ALGORI... Q4 SC ; Start 12/03/18 at 21:00 Miscellaneous Information 1 ea NOTE XX ; Start 12/03/18 at 19:30 Glucose (Glutose) 15 gm Q15M PRN PO DECREASED GLUCOSE; Start 12/03/18 at 19:30 Glucose (Glutose) 22.5 gm Q15M PRN PO DECREASED GLUCOSE; Start 12/03/18 at 19:30 Dextrose (D50w Syringe) 25 ml Q15M PRN IV DECREASED GLUCOSE; Start 12/03/18 at 19:30 Dextrose (D50w Syringe) 50 ml Q15M PRN IV DECREASED GLUCOSE; Start 12/03/18 at 19:30 Glucagon (Glucagen) 1 mg Q15M PRN IM DECREASED GLUCOSE; Start 12/03/18 at 19:30 Glucose (Glutose) 15 gm Q15M PRN BUCCAL DECREASED GLUCOSE; Start 12/03/18 at 19:30 Piperacillin Sod/ Tazobactam Sod 100 ml @ 200 mls/hr Q6 IVPB Last administered on 12/06/18at 05:30; Admin Dose 200 MLS/HR; Start 12/04/18 at 00:30 Bisacodyl (Dulcolax Supp) 10 mg DAILY PRN [place] CONSTIPATION Last administered on 12/05/18at 22:16; Admin Dose 10 MG; Start 12/05/18 at 12:00 Potassium Chloride 100 ml @ 50 mls/hr Q2H IVPB ; Start 12/06/18 at 10:00; Stop 12/06/18 at 13:59; Status KENIA BACON MD Dec 06, 2018 10:02
[2018-12-06] MEDS: POTASSIUM CHLORIDE 100 ML IVPB SCH ×2 (11:12→15:11)
[2018-12-06] MEDS ORDERED: LIDOCAINE 4% SOLUTION 50 ML BTL ONE (11:58)
--- NOTE | 2018-12-06 12:26 | PREAC ---
Date/Time of Note Date/Time of Note DATE: 12/06/18 TIME: 12:23 Anesthesia Eval and Record Evaluation Time Pre-Procedure Interview DATE: 12/06/18 TIME: 12:23 Age 63 Sex male NPO: 8 hrs Preoperative diagnosis gastric outlet obstruction Planned procedure EGD Past Medical History Past Medical History: Includes Cardio: HTN, CAD, CABG Endo: Diabetes GI: Other (cholangio carcinoma) Surgery & Anesthesia Issues No known issue Meds Anticoagulation: No Beta Colleen within 24 hr: No Reason Beta Colleen not given: Pt. not on B-Colleen Active Scripts Insulin Glargine,Hum.rec.anlog (Basaglar Kwikpen U-100) 100 Unit/1 Ml Insuln.pen, 30 UNIT SC DAILY for 30 Days, #2 EA 5 Refills Prov:LOPEZ FLOWERS MD 10/16/18 Insulin Aspart* (Novolog Insulin Pen*) 100 Unit/Ml Soln, 10 UNIT SC WITH MEALS for 30 Days, #5 EA 3 Refills Prov:LOPEZ FLOWERS MD 10/16/18 Ursodiol* (Actigall*) 300 Mg Cap, 300 MG PO TID for 30 Days, #90 CAP Prov:LOPEZ FLOWERS MD 10/16/18 Current Medications Sodium Chloride 1,000 ml @ 100 mls/hr Q10H IV Last administered on 12/06/18at 04:10; Admin Dose 100 MLS/HR; Start 12/03/18 at 18:55 IV Flush (NS 3 ml) 3 ml PER PROTOCOL IV ; Start 12/03/18 at 19:00 Ondansetron HCl (Zofran Inj) 4 mg Q6H PRN IV NAUSEA/VOMITING; Start 12/03/18 at 19:00 Acetaminophen (Tylenol Tab) 650 mg Q6H PRN PO .PAIN 1-3 OR TEMP; Start 12/03/18 at 19:00 Acetaminophen/ Hydrocodone Bitart ([place] (5/325)) 1 tab Q6H PRN PO .MOD PAIN 4- 6; Start 12/03/18 at 19:00 Morphine Sulfate (morphine) 2 mg Q4H PRN IV .SEVERE PAIN 7-10; Start 12/03/18 at 19:00 Heparin Sodium (Porcine) (Heparin (5000 Units/1ml)) 5,000 unit Q12 SC Last administered on 12/05/18at 21:37; Admin Dose 5,000 UNIT; Start 12/03/18 at 21:00 Diagnostic Test (Pha) (Accu-Chek) 1 ea 02 XX ; Start 12/04/18 at 02:00 Insulin Aspart (Novolog Insulin Pen) NOVOLOG *MILD* ALGORI... Q4 SC ; Start 12/03/18 at 21:00 Miscellaneous Information 1 ea NOTE XX ; Start 12/03/18 at 19:30 Glucose (Glutose) 15 gm Q15M PRN PO DECREASED GLUCOSE; Start 12/03/18 at 19:30 Glucose (Glutose) 22.5 gm Q15M PRN PO DECREASED GLUCOSE; Start 12/03/18 at 19:30 Dextrose (D50w Syringe) 25 ml Q15M PRN IV DECREASED GLUCOSE; Start 12/03/18 at 19:30 Dextrose (D50w Syringe) 50 ml Q15M PRN IV DECREASED GLUCOSE; Start 12/03/18 at 19:30 Glucagon (Glucagen) 1 mg Q15M PRN IM DECREASED GLUCOSE; Start 12/03/18 at 19:30 Glucose (Glutose) 15 gm Q15M PRN BUCCAL DECREASED GLUCOSE; Start 12/03/18 at 19:30 Piperacillin Sod/ Tazobactam Sod 100 ml @ 200 mls/hr Q6 IVPB Last administered on 12/06/18at 05:30; Admin Dose 200 MLS/HR; Start 12/04/18 at 00:30 Bisacodyl (Dulcolax Supp) 10 mg DAILY PRN [place] CONSTIP[place] Last administered on 12/05/18at 22:16; Admin Dose 10 MG; Start 12/05/18 at 12:00 Potassium Chloride 100 ml @ 50 mls/hr Q2H IVPB Last administered on 12/06/18at 11:12; Admin Dose 50 MLS/HR; Start 12/06/18 at 10:00; Stop 12/06/18 at 13:59 Meds reviewed: Yes Allergies Coded Allergies: No Known Allergy (Verified , 03/11/16) Allergies Reviewed: Yes Labs/Studies Labs Reviewed: Reviewed by anesthesiologist Result Diagram: 12/06/18 0551 12/06/18 0551 Laboratory Tests 12/06/18 05:51 test: N/A Studies: ECG ( ), CXR (n/a) Pre-procedure Exam Last vitals Vital Signs Date Temp Pulse Resp B/P (MAP) Pulse Ox O2 O2 Flow FiO2 Time Delivery Rate 12/06/18 98.5 61 16 135/65 99 07:46 (88) Airway: Adequate mouth opening Mallampati: Mallampati I Teeth: Normal Lung: Normal Heart: Normal ASA Physical Status ASA physical status: 2 Emergency: None Planned Anesthetic General/MAC: MAC Planned Pain Management Parenteral pain med Pre-operative Attestations Prior to commencing anesthesia and surgery, the patient was re-evaluated, there was verification of: *The patient's identity *The results of appropriate recent lab work and preoperative vital signs *The above evaluation not changing prior to induction *Anesthetic plan, risk benefits, alternative and complications discussed with patient/family; questions answered; patient/family understands, accepts and wishes to proceed. LIANNE SHEARER MD Dec 06, 2018 12:25
[2018-12-06] MEDS ORDERED: ONDANSETRON 4 MG INJ IV PRN (12:30)
[2018-12-06] MEDS ORDERED: PROPOFOL 20 ML ONE (12:33)
[2018-12-06] MEDS ORDERED: METOCLOPRAMIDE 10 MG INJ ONE (12:57)
[2018-12-06] MEDS: METOCLOPRAMIDE 10 MG INJ IV SCH ×2 (14:41→18:00)
--- NOTE | 2018-12-06 15:45 | CONS ---
Assessment/Plan Assessment/Plan Hospital Course (Demo Recall) ID PROGRESS NOTE CURRENT ABX: DAY # Zosyn 24H INTERVAL SUMMARY * POD#0 -> s/p EGD today- spouse says "nothing" was found on EGD. Patient is A/A/O -- feels better, denies pain * 12/06/18 ABD XR: IMPRESSION:Nonobstructive bowel gas pattern. Enteric tube looped in the left upper quadrant abdomen, likely within the stomach. Residual enteric contrast noted within the colon. Two biliary stents are noted. * 12/04/18 CT ABD-PEL: IMPRESSION: * Mild intrahepatic ductal dilatation in patient with bilateral biliary endoprosthesis. * No gallstones visualize. Sheet-like soft tissue surrounding gallbladder and within the kraig hepatis as seen on recent MRI. Question cholangiocarcinoma versus gallbladder cancer versus metastatic adenopathy. Consider biopsy. * Vascular calcifications. * Left renal cyst. * No evidence of urolithiasis, obstructive uropathy, diverticulitis or appendicitis. * Small right pleural effusion. MICRO * 12/04/18 BCX @ [facility] (-) * BCx (+) GNR @ [facility]: Microbiology at the other hospital informs us that his blood cultures are positive for Klebsiella species not Klebsiella pneumoniae PHYSICAL EXAMINATION: GENERAL: Afebrile, VSS HEENT: AT, NC, anicteric NECK: Grossly normal CHEST: Equal chest rise bilaterally = without dyspnea HEART: Pulse RRR ABDOMEN: Deferred, sleeping EXTREMITIES: Warm, SKIN: No rash, no diaphoresis ID ASSESSMENT 63 yo M admit with: (1) SIRS w/Tmax 99.6 on TNS from [facility] * 12/04/18 BCX @ [facility] (-) * BCx (+) GNR @ [facility]: Microbiology at the other hospital informs us that his blood cultures are positive for Klebsiella species not Klebsiella pneumoniae (2) Obstructed, gastric outlet -> S/P EGD 12/06/17 w/report pending horizontal resaw operator to chart * Status: Acute * Repeat obstruction and stent replaced at [facility] last week (3) 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 * s/p 10/12/18 ERCP, sphincterotomy, brushings of the malignant stricture of the bile duct, placement of 2 stents, one into the left hepatic duct and one into the right hepatic duct. (4) Diabetes mellitus type 2 in nonobese * Status: Chronic/Stable (5) H/O four vessel coronary artery bypass graft * Onset Date: ~ 11/2009 Status: Chronic/asymptomatic ABX ALLERGIES: KNDA INVASIVES: PIV CURRENT ABX: DAY # => Zosyn ID RECOMMENDATIONS/PLAN: 1. Continue Zosyn 2. DC PLANNING: Anticipate total 14 days ABX. May change to PO Cipro/Levaquin/or Augmentin 875mg poQ12H on days#8-14 if sensitivities can be confirmed. * If not sensitive to PO's listed, then consider DC on Ertapenem 1GM IVPB to complete 14 days. . Consultation Date/Type/Reason Admit Date/Time Dec 03, 2018 at 18:07 Initial Consult Date Date/Time of Note DATE: 12/06/18 TIME: 15:36 Exam/Review of Systems Exam Vitals Vital Signs Date Temp Pulse Resp B/P (MAP) Pulse Ox O2 O2 Flow FiO2 Time Delivery Rate 12/06/18 97.6 63 18 152/71 Room Air 14:31 (98) 12/06/18 99 13:53 Intake and Output 12/05/18 12/05/18 12/06/18 1515:00 23:00 07:00 IntakeIntake Total 200 ml 1100 ml 1290 ml OutputOutput Total 900 ml 80 ml 900 ml BalanceBalance -700 ml 1020 ml 390 ml Results Result Diagram: 12/06/18 0551 12/06/18 0551 Results 24hrs Laboratory Tests Test 12/05/18 17:43 12/05/18 21:34 12/06/18 01:37 12/06/18 05:30 Bedside Glucose 88 78 87 84 Test 12/06/18 05:51 12/06/18 09:33 12/06/18 14:11 White Blood Count 5.5 Red Blood Count 3.20 L Hemoglobin 9.5 L Hematocrit 28.7 L Mean Corpuscular 89.7 Volume Mean Corpuscular 29.7 Hemoglobin Mean Corpuscular 33.1 Hemoglobin Concent Red Cell 15.5 H Distribution Width Platelet Count 371 Mean Platelet Volume 9.7 Immature 0.600 H Granulocytes % Neutrophils % 58.8 Lymphocytes % 25.1 Monocytes % 14.7 H Eosinophils % 0.4 Basophils % 0.4 Nucleated Red Blood 0.0 Cells % Immature 0.030 Granulocytes # Neutrophils # 3.2 Lymphocytes # 1.4 Monocytes # 0.8 Eosinophils # 0.0 Basophils # 0.0 Nucleated Red Blood 0.0 Cells # Prothrombin Time 13.4 Prothrombin Time 1.0 Ratio INR International 1.01 Normalized Ratio Activated 33.1 Partial Thromboplast Time Sodium Level 139 Potassium Level 3.4 L Chloride Level 105 Carbon Dioxide Level 25 Anion Gap 9 Blood Urea Nitrogen 7 Creatinine 0.58 L Est Glomerular > 60 Filtrat Rate mL/min Glucose Level 84 Calcium Level 8.7 Total Bilirubin 0.3 Direct Bilirubin 0.00 Indirect Bilirubin 0.3 Aspartate Amino 26 Transf (AST/SGOT) Alanine 19 Aminotransferase (AL T/SGPT) Alkaline Phosphatase 85 Total Protein 5.7 L Albumin 2.9 L Globulin 2.80 Albumin/Globulin 1.03 Ratio Bedside Glucose 93 145 Medications Medication Current Medications Sodium Chloride 1,000 ml @ 100 mls/hr Q10H IV Last administered on 12/06/18at 04:10; Admin Dose 100 MLS/HR; Start 12/03/18 at 18:55 IV Flush (NS 3 ml) 3 ml PER PROTOCOL IV ; Start 12/03/18 at 19:00 Ondansetron HCl (Zofran Inj) 4 mg Q6H PRN IV NAUSEA/VOMITING; Start 12/03/18 at 19:00 Acetaminophen (Tylenol Tab) 650 mg Q6H PRN PO .PAIN 1-3 OR TEMP Last administered on 12/06/18at 14:40; Admin Dose 650 MG; Start 12/03/18 at 19:00 Acetaminophen/ Hydrocodone Bitart ([place] (5/325)) 1 tab Q6H PRN PO .MOD PAIN 4- 6; Start 12/03/18 at 19:00 Morphine Sulfate (morphine) 2 mg Q4H PRN IV .SEVERE PAIN 7-10; Start 12/03/18 at 19:00 Heparin Sodium (Porcine) (Heparin (5000 Units/1ml)) 5,000 unit Q12 SC Last administered on 12/05/18at 21:37; Admin Dose 5,000 UNIT; Start 12/03/18 at 21:00 Diagnostic Test (Pha) (Accu-Chek) 1 ea 02 XX ; Start 12/04/18 at 02:00 Insulin Aspart (Novolog Insulin Pen) NOVOLOG *MILD* ALGORI... Q4 SC Last administered on 12/06/18at 14:24; Admin Dose 1 UNIT; Start 12/03/18 at 21:00 Miscellaneous Information 1 ea NOTE XX ; Start 12/03/18 at 19:30 Glucose (Glutose) 15 gm Q15M PRN PO DECREASED GLUCOSE; Start 12/03/18 at 19:30 Glucose (Glutose) 22.5 gm Q15M PRN PO DECREASED GLUCOSE; Start 12/03/18 at 19:30 Dextrose (D50w Syringe) 25 ml Q15M PRN IV DECREASED GLUCOSE; Start 12/03/18 at 19:30 Dextrose (D50w Syringe) 50 ml Q15M PRN IV DECREASED GLUCOSE; Start 12/03/18 at 19:30 Glucagon (Glucagen) 1 mg Q15M PRN IM DECREASED GLUCOSE; Start 12/03/18 at 19:30 Glucose (Glutose) 15 gm Q15M PRN BUCCAL DECREASED GLUCOSE; Start 12/03/18 at 19:30 Piperacillin Sod/ Tazobactam Sod 100 ml @ 200 mls/hr Q6 IVPB Last administered on 12/06/18at 14:17; Admin Dose 200 MLS/HR; Start 12/04/18 at 00:30 Bisacodyl (Dulcolax Supp) 10 mg DAILY PRN [place] CONSTIPATION Last administered on 12/05/18at 22:16; Admin Dose 10 MG; Start 12/05/18 at 12:00 Ondansetron HCl (Zofran Inj) 4 mg PACU ORDER PRN IV NAUSEA/VOMITING; Start 12/06/18 at 12:30; Stop 12/06/18 at 17:00 Metoclopramide HCl (Reglan) 10 mg Q6 IV Last administered on 12/06/18at 14:41; Admin Dose 10 MG; Start 12/06/18 at 13:30 NILO HAWKINS NP Dec 06, 2018 15:45
[2018-12-07] MEDS: PIPER-TAZO 3.375 GM IV (PMX) 100 ML IVPB SCH ×4 (00:02→18:19)
[2018-12-07] MEDS: METOCLOPRAMIDE 10 MG INJ IV SCH ×4 (00:02→18:20)
[2018-12-07 01:58] VITALS: BP 137/63; PULSE 60; RESP 18
[2018-12-07] MEDS: ACCU-CHEK XX SCH (02:00)
[2018-12-07] MEDS: SOD CHLORIDE 0.9% 1,000 ML IV SCH ×3 (07:15→21:09)
[2018-12-07 07:43] VITALS: BP 146/69; PULSE 63; RESP 16
--- NOTE | 2018-12-07 08:00 | PAC ---
Date/Time of Note Date/Time of Note DATE: 12/07/18 TIME: 08:00 Post-Anesthesia Notes Post-Anesthesia Note Last documented vital signs Vital Signs Date Temp Pulse Resp B/P (MAP) Pulse Ox O2 O2 Flow FiO2 Time Delivery Rate 12/07/18 97.9 63 16 146/69 99 07:43 (94) 12/07/18 Room Air 01:58 Activity: WNL Respiratory function: WNL Cardiovascular function: WNL Mental status: Baseline Pain reasonably controlled: Yes Hydration appropriate: Yes Nausea/Vomiting absent: No LIANNE SHEARER MD Dec 07, 2018 08:00
[2018-12-07] MEDS: INSULIN ASPART [NOVOLOG] 3 ML PEN SC SCH ×4 (08:46→21:00)
[2018-12-07] MEDS: HEPARIN 5,000 UNIT/1 ML VIAL SC SCH ×2 (08:46→21:06)
--- NOTE | 2018-12-07 13:31 | PN ---
Date/Time of Note Date/Time of Note DATE: 12/07/18 TIME: 13:30 Assessment/Plan VTE Prophylaxis Risk score (from Ns)>0 risk: 4 SCD applied (from Ns): Yes Pharmacological prophylaxis: heparin Lines/Catheters IV C[facility]ter Type (from [facility] Peripheral IV Urinary Cath still in place: No Assessment/Plan Hospital Course 63 yo male with h/o cholangiocarcinoma with biliary obstruction. s/p ERCP with stent placed here. Then repeat obstruction and stent replaced at [facility] last week. Has received 2 doses chemo. Now returns with inability to tolerate PO and sepsis - EGD showed no evidence of obstruction, suggestive of gastroparesis - UGIS, gastric empyting study are pending - [facility] Cholangiocarcinoma: - Dr Leavitt contacted GNR bacteremia with sepsis: - Continue zoysn. ID consultation - Follow cultures DMII: - insulin scale Discharge when stable Result Diagram: 12/07/1844612/07/187 Results 24hrs Laboratory Tests Test 12/06/18 14:11 12/06/18 17:38 12/06/18 20:22 12/07/18 04:47 Bedside Glucose 145 135 165 White Blood Count 5.0 Red Blood Count 3.23 L Hemoglobin 9.6 L Hematocrit 28.3 L Mean Corpuscular 87.6 Volume Mean Corpuscular 29.7 Hemoglobin Mean Corpuscular 33.9 Hemoglobin Concent Red Cell 15.2 H Distribution Width Platelet Count 340 Mean Platelet Volume 9.1 Immature 0.800 H Granulocytes % Neutrophils % 56.9 Lymphocytes % 26.8 Monocytes % 14.1 H Eosinophils % 1.0 Basophils % 0.4 Nucleated Red Blood 0.0 Cells % Immature 0.040 H Granulocytes # Neutrophils # 2.9 Lymphocytes # 1.4 Monocytes # 0.7 Eosinophils # 0.1 Basophils # 0.0 Nucleated Red Blood 0.0 Cells # Sodium Level 140 Potassium Level 3.5 Chloride Level 104 Carbon Dioxide Level 24 Anion Gap 12 Blood Urea Nitrogen 4 L Creatinine 0.53 L Est Glomerular > 60 Filtrat Rate mL/min Glucose Level 140 # Calcium Level 8.5 Total Bilirubin 0.2 Direct Bilirubin 0.00 Indirect Bilirubin 0.2 Aspartate Amino 58 #H Transf (AST/SGOT) Alanine 26 Aminotransferase (AL T/SGPT) Alkaline Phosphatase 221 #H Total Protein 5.7 L Albumin 2.7 L Globulin 3.00 Albumin/Globulin 0.90 Ratio Test 12/07/18 08:30 12/07/18 13:03 Bedside Glucose 148 158 Subjective 24 Hr Interval Summary Free Text/Dictation Tolerating some PO No pain Awiaitng UGIS and NM study Exam/Review of Systems Exam Vitals Vital Signs Date Temp Pulse Resp B/P (MAP) Pulse Ox O2 O2 Flow FiO2 Time Delivery Rate 12/07/18 97.9 63 16 146/69 99 07:43 (94) 12/07/18 Room Air 01:58 Intake and Output 12/06/18 12/06/18 12/07/18 1515:00 23:00 07:00 IntakeIntake Total 720 ml 2410 ml 350 ml OutputOutput Total 1105 ml 350 ml 300 ml BalanceBalance -385 ml 2060 ml 50 ml Constitutional: alert, oriented, well developed Psych: no complaints, nl mood/affect Head: normocephalic, atraumatic Eyes: nl conjunctiva, EOMI, nl lids, nl sclera, PERRL ENMT: nl external ears & nose, nl lips & teeth, nl nasal mucosa & septum Neck: supple, non-tender Respiratory: clear to auscultation, normal air movement Cardiovascular: regular rate and rhythm, nl pulses Gastrointestinal: soft, nl liver, spleen, non-tender Musculoskeletal: nl extremities to inspection, nl gait and stance Extremities: normal pulses Neurological: PRINCIPAL 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 ENGINEER II-XII intact, nl mental status, nl speech, nl strength Skin: nl turgor; No rash or lesions Lymph: nl lymph nodes Results Results 24hrs Laboratory Tests Test 12/06/18 14:11 12/06/18 17:38 12/06/18 20:22 12/07/18 04:47 Bedside Glucose 145 135 165 White Blood Count 5.0 Red Blood Count 3.23 L Hemoglobin 9.6 L Hematocrit 28.3 L Mean Corpuscular 87.6 Volume Mean Corpuscular 29.7 Hemoglobin Mean Corpuscular 33.9 Hemoglobin Concent Red Cell 15.2 H Distribution Width Platelet Count 340 Mean Platelet Volume 9.1 Immature 0.800 H Granulocytes % Neutrophils % 56.9 Lymphocytes % 26.8 Monocytes % 14.1 H Eosinophils % 1.0 Basophils % 0.4 Nucleated Red Blood 0.0 Cells % Immature 0.040 H Granulocytes # Neutrophils # 2.9 Lymphocytes # 1.4 Monocytes # 0.7 Eosinophils # 0.1 Basophils # 0.0 Nucleated Red Blood 0.0 Cells # Sodium Level 140 Potassium Level 3.5 Chloride Level 104 Carbon Dioxide Level 24 Anion Gap 12 Blood Urea Nitrogen 4 L Creatinine 0.53 L Est Glomerular > 60 Filtrat Rate mL/min Glucose Level 140 # Calcium Level 8.5 Total Bilirubin 0.2 Direct Bilirubin 0.00 Indirect Bilirubin 0.2 Aspartate Amino 58 #H Transf (AST/SGOT) Alanine 26 Aminotransferase (AL T/SGPT) Alkaline Phosphatase 221 #H Total Protein 5.7 L Albumin 2.7 L Globulin 3.00 Albumin/Globulin 0.90 Ratio Test 12/07/18 08:30 12/07/18 13:03 Bedside Glucose 148 158 Medications Medication Current Medications Sodium Chloride 1,000 ml @ 100 mls/hr Q10H IV Last administered on 12/07/18at 07:15; Admin Dose 100 MLS/HR; Start 12/03/18 at 18:55 IV Flush (NS 3 ml) 3 ml PER PROTOCOL IV ; Start 12/03/18 at 19:00 Ondansetron HCl (Zofran Inj) 4 mg Q6H PRN IV NAUSEA/VOMITING; Start 12/03/18 at 19:00 Acetaminophen (Tylenol Tab) 650 mg Q6H PRN PO .PAIN 1-3 OR TEMP Last administered on 12/06/18at 14:40; Admin Dose 650 MG; Start 12/03/18 at 19:00 Acetaminophen/ Hydrocodone Bitart ([place] (5/325)) 1 tab Q6H PRN PO .MOD PAIN 4- 6; Start 12/03/18 at 19:00 Morphine Sulfate (morphine) 2 mg Q4H PRN IV .SEVERE PAIN 7-10; Start 12/03/18 at 19:00 Heparin Sodium (Porcine) (Heparin (5000 Units/1ml)) 5,000 unit Q12 SC Last administered on 12/07/18at 08:46; Admin Dose 5,000 UNIT; Start 12/03/18 at 21:00 Diagnostic Test (Pha) (Accu-Chek) 1 ea 02 XX ; Start 12/04/18 at 02:00 Miscellaneous Information 1 ea NOTE XX ; Start 12/03/18 at 19:30 Glucose (Glutose) 15 gm Q15M PRN PO DECREASED GLUCOSE; Start 12/03/18 at 19:30 Glucose (Glutose) 22.5 gm Q15M PRN PO DECREASED GLUCOSE; Start 12/03/18 at 19:30 Dextrose (D50w Syringe) 25 ml Q15M PRN IV DECREASED GLUCOSE; Start 12/03/18 at 19:30 Dextrose (D50w Syringe) 50 ml Q15M PRN IV DECREASED GLUCOSE; Start 12/03/18 at 19:30 Glucagon (Glucagen) 1 mg Q15M PRN IM DECREASED GLUCOSE; Start 12/03/18 at 19:30 Glucose (Glutose) 15 gm Q15M PRN BUCCAL DECREASED GLUCOSE; Start 12/03/18 at 19:30 Piperacillin Sod/ Tazobactam Sod 100 ml @ 200 mls/hr Q6 IVPB Last administered on 12/07/18at 12:54; Admin Dose 200 MLS/HR; Start 12/04/18 at 00:30 Bisacodyl (Dulcolax Supp) 10 mg DAILY PRN [place] CONSTIPATION Last administered on 12/05/18at 22:16; Admin Dose 10 MG; Start 12/05/18 at 12:00 Metoclopramide HCl (Reglan) 10 mg Q6 IV Last administered on 12/07/18 12:54; Admin Dose 10 MG; Start 12/06/18 at 13:30 Insulin Aspart (Novolog Insulin Pen) NOVOLOG *MILD* ALGORITHM WITH MEALS BEDTIME SC Last administered on 12/07/18 13:08; Admin Dose 1 UNIT; Start 12/06/18 at 21:00 LOPEZ FLOWERS MD Dec 07, 2018 13:31
[2018-12-07 14:12] VITALS: BP 151/67; PULSE 63; RESP 19
[2018-12-07] MEDS ORDERED: BARIUM SULFATE 135 ML (E-Z HD) PO ONE (15:00)
--- NOTE | 2018-12-07 15:27 | CONS ---
Assessment/Plan Assessment/Plan Hospital Course (Demo Recall) ID PROGRESS NOTE CURRENT ABX: DAY # Zosyn 24H INTERVAL SUMMARY * OFF FLOOR TO RADIOLOGY FOR REPEAT IMAGING == CHART REVIEWED = NO NEW ISSUES REPORTED * POD#1 -> s/p EGD today * 12/06/18 ABD XR: IMPRESSION:Nonobstructive bowel gas pattern. Enteric tube looped in the left upper quadrant abdomen, likely within the stomach. Residual enteric contrast noted within the colon. Two biliary stents are noted. * 12/04/18 CT ABD-PEL: IMPRESSION: * Mild intrahepatic ductal dilatation in patient with bilateral biliary endoprosthesis. * No gallstones visualize. Sheet-like soft tissue surrounding gallbladder and within the kraig hepatis as seen on recent MRI. Question cholangiocarcinoma versus gallbladder cancer versus metastatic adenopathy. Consider biopsy. * Vascular calcifications. * Left renal cyst. * No evidence of urolithiasis, obstructive uropathy, diverticulitis or appendicitis. * Small right pleural effusion. MICRO * 12/04/18 BCX @ [facility] (-) * BCx (+) GNR @ [facility]: Microbiology at the other hospital informs us that his blood cultures are positive for Klebsiella species not Klebsiella pneumoniae PHYSICAL EXAMINATION == RECORDED FROM YESTERDAY'S EXAM == EXAM DEFERRED TODAY PT IS OFF THE FLOOR GENERAL: Afebrile, VSS ID ASSESSMENT 63 yo M admit with: (1) SIRS w/Tmax 99.6 on TNS from [facility] * 12/04/18 BCX @ [facility] (-) * BCx (+) GNR @ [facility]: Microbiology at the other hospital informs us that his blood cultures are positive for Klebsiella species not Klebsiella pneumoniae (2) Obstructed, gastric outlet -> S/P EGD 12/06/17 w/report 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 * s/p 10/12/18 ERCP, sphincterotomy, brushings of the malignant stricture of the bile duct, placement of 2 stents, one into the left hepatic duct and one into the right hepatic duct. (4) Diabetes mellitus type 2 in nonobese * Status: Chronic/Stable (5) H/O four vessel coronary artery bypass graft * Onset Date: ~ 11/2009 Status: Chronic/asymptomatic ABX ALLERGIES: KNDA INVASIVES: PIV CURRENT ABX: DAY # => Zosyn ID RECOMMENDATIONS/PLAN: 1. Continue Zosyn 2. DC PLANNING: Anticipate total 14 days ABX. May change to PO Cipro/Levaquin/or Augmentin 875mg poQ12H on days#8-14 if sensitivities can be confirmed. * If not sensitive to PO's listed, then consider DC on Ertapenem 1GM IVPB to complete 14 days. . Consultation Date/Type/Reason Admit Date/Time Dec 03, 2018 at 18:07 Initial Consult Date Date/Time of Note DATE: 12/07/18 TIME: 15:25 Exam/Review of Systems Exam Vitals Vital Signs Date Temp Pulse Resp B/P (MAP) Pulse Ox O2 O2 Flow FiO2 Time Delivery Rate 12/07/18 97.8 63 19 151/67 97 Room Air 14:12 (95) Intake and Output 12/06/18 12/06/18 12/07/18 1515:00 23:00 07:00 IntakeIntake Total 720 ml 2410 ml 350 ml OutputOutput Total 1105 ml 350 ml 300 ml BalanceBalance -385 ml 2060 ml 50 ml Results Result Diagram: 12/07/187 12/07/187 Results 24hrs Laboratory Tests Test 12/06/18 17:38 12/06/18 20:22 12/07/18 04:47 12/07/18 08:30 Bedside Glucose 135 165 148 White Blood Count 5.0 Red Blood Count 3.23 L Hemoglobin 9.6 L Hematocrit 28.3 L Mean Corpuscular 87.6 Volume Mean Corpuscular 29.7 Hemoglobin Mean Corpuscular 33.9 Hemoglobin Concent Red Cell 15.2 H Distribution Width Platelet Count 340 Mean Platelet Volume 9.1 Immature 0.800 H Granulocytes % Neutrophils % 56.9 Lymphocytes % 26.8 Monocytes % 14.1 H Eosinophils % 1.0 Basophils % 0.4 Nucleated Red Blood 0.0 Cells % Immature 0.040 H Granulocytes # Neutrophils # 2.9 Lymphocytes # 1.4 Monocytes # 0.7 Eosinophils # 0.1 Basophils # 0.0 Nucleated Red Blood 0.0 Cells # Sodium Level 140 Potassium Level 3.5 Chloride Level 104 Carbon Dioxide Level 24 Anion Gap 12 Blood Urea Nitrogen 4 L Creatinine 0.53 L Est Glomerular > 60 Filtrat Rate mL/min Glucose Level 140 # Calcium Level 8.5 Total Bilirubin 0.2 Direct Bilirubin 0.00 Indirect Bilirubin 0.2 Aspartate Amino 58 #H Transf (AST/SGOT) Alanine 26 Aminotransferase (AL T/SGPT) Alkaline Phosphatase 221 #H Total Protein 5.7 L Albumin 2.7 L Globulin 3.00 Albumin/Globulin 0.90 Ratio Test 12/07/18 13:03 Bedside Glucose 158 Medications Medication Current Medications Sodium Chloride 1,000 ml @ 100 mls/hr Q10H IV Last administered on 12/07/18at 07:15; Admin Dose 100 MLS/HR; Start 12/03/18 at 18:55 IV Flush (NS 3 ml) 3 ml PER PROTOCOL IV ; Start 12/03/18 at 19:00 Ondansetron HCl (Zofran Inj) 4 mg Q6H PRN IV NAUSEA/VOMITING; Start 12/03/18 at 19:00 Acetaminophen (Tylenol Tab) 650 mg Q6H PRN PO .PAIN 1-3 OR TEMP Last administered on 12/06/18at 14:40; Admin Dose 650 MG; Start 12/03/18 at 19:00 Acetaminophen/ Hydrocodone Bitart ([place] (5/325)) 1 tab Q6H PRN PO .MOD PAIN 4- 6; Start 12/03/18 at 19:00 Morphine Sulfate (morphine) 2 mg Q4H PRN IV .SEVERE PAIN 7-10; Start 12/03/18 at 19:00 Heparin Sodium (Porcine) (Heparin (5000 Units/1ml)) 5,000 unit Q12 SC Last administered on 12/07/18at 08:46; Admin Dose 5,000 UNIT; Start 12/03/18 at 21:00 Diagnostic Test (Pha) (Accu-Chek) 1 ea 02 XX ; Start 12/04/18 at 02:00 Miscellaneous Information 1 ea NOTE XX ; Start 12/03/18 at 19:30 Glucose (Glutose) 15 gm Q15M PRN PO DECREASED GLUCOSE; Start 12/03/18 at 19:30 Glucose (Glutose) 22.5 gm Q15M PRN PO DECREASED GLUCOSE; Start 12/03/18 at 19:30 Dextrose (D50w Syringe) 25 ml Q15M PRN IV DECREASED GLUCOSE; Start 12/03/18 at 19:30 Dextrose (D50w Syringe) 50 ml Q15M PRN IV DECREASED GLUCOSE; Start 12/03/18 at 19:30 Glucagon (Glucagen) 1 mg Q15M PRN IM DECREASED GLUCOSE; Start 12/03/18 at 19:30 Glucose (Glutose) 15 gm Q15M PRN BUCCAL DECREASED GLUCOSE; Start 12/03/18 at 19:30 Piperacillin Sod/ Tazobactam Sod 100 ml @ 200 mls/hr Q6 IVPB Last administered on 12/07/18at 12:54; Admin Dose 200 MLS/HR; Start 12/04/18 at 00:30 Bisacodyl (Dulcolax Supp) 10 mg DAILY PRN [place] CONSTIPATION Last administered on 12/05/18at 22:16; Admin Dose 10 MG; Start 12/05/18 at 12:00 Metoclopramide HCl (Reglan) 10 mg Q6 IV Last administered on 12/07/18at 12:54; Admin Dose 10 MG; Start 12/06/18 at 13:30 Insulin Aspart (Novolog Insulin Pen) NOVOLOG *MILD* ALGORITHM WITH MEALS BEDTIME SC Last administered on 12/07/18 13:08; Admin Dose 1 UNIT; Start 12/06/18 at 21:00 NILO HAWKINS NP Dec 07, 2018 15:27
[2018-12-07 16:11] VITALS: BP 164/73; PULSE 55; RESP 16
[2018-12-07 19:59] VITALS: BP 138/68; PULSE 62; RESP 17
[2018-12-07] MEDS: ZOLPIDEM 5 MG TAB PO PRN (21:03)
[2018-12-08] MEDS: METOCLOPRAMIDE 10 MG INJ IV SCH ×5 (00:10→23:42)
[2018-12-08] MEDS: PIPER-TAZO 3.375 GM IV (PMX) 100 ML IVPB SCH ×5 (00:10→23:42)
[2018-12-08] MEDS: ZOLPIDEM 5 MG TAB PO PRN (00:15)
[2018-12-08 01:29] VITALS: BP 119/62; PULSE 74; RESP 18
[2018-12-08] MEDS: ACCU-CHEK XX SCH ×2 (02:00→20:34)
[2018-12-08 07:45] VITALS: BP 149/70; PULSE 57; RESP 17
[2018-12-08] MEDS: HEPARIN 5,000 UNIT/1 ML VIAL SC SCH ×2 (08:10→20:33)
[2018-12-08] MEDS: INSULIN ASPART [NOVOLOG] 3 ML PEN SC SCH ×4 (08:10→20:33)
[2018-12-08] MEDS: SOD CHLORIDE 0.9% 1,000 ML IV SCH ×2 (12:44→18:55)
[2018-12-08 13:41] VITALS: BP 154/74; PULSE 57; RESP 16
--- NOTE | 2018-12-08 14:00 | CONS ---
Assessment/Plan Assessment/Plan Assessment/Plan (Daily) ASSESSMENT AND PLAN: A 63-year-old gentleman with inoperable biliary cholangiocarcinoma, poorly differentiated, post Port-A-Cath. Has cycle 1 gemcitabine lovelock per protocol, now gastric outlet obstruction. GI evaluation improved by NG suction. No active intervention at this time GI f/up better DC home later Out patient gemzar lovelock per protocol post stent placement improved bilirubin from 19 >> 3 Consultation Date/Type/Reason Admit Date/Time better no pain no vomitinr no bleeding Initial Consult Date Date/Time of Note DATE: 12/08/18 TIME: 13:56 24 HR Interval Summary Free Text/Dictation batter today improving no vomiting no bleeding S1S2 Clear lungs soft abdomen mild jaundice Exam/Review of Systems Exam Vitals Vital Signs Date Temp Pulse Resp B/P (MAP) Pulse Ox O2 O2 Flow FiO2 Time Delivery Rate 12/08/18 98.0 57 16 154/74 98 Room Air 13:41 (100) Intake and Output 12/07/18 12/07/18 12/08/18 1515:00 23:00 07:00 IntakeIntake Total 730 ml 2740 ml 1696 ml OutputOutput Total 700 ml BalanceBalance 730 ml 2740 ml 996 ml Constitutional: alert, oriented Eyes: nl conjunctiva, EOMI ENMT: nl external ears & nose, nl lips & teeth Neck: supple, non-tender Respiratory: clear to auscultation, normal air movement Cardiovascular: regular rate and rhythm, nl pulses Gastrointestinal: soft, nl liver, spleen, non-tender Musculoskeletal: nl extremities to inspection Results Result Diagram: 12/07/187 12/07/18446 Results 24hrs Laboratory Tests Test 12/07/18 17:34 12/07/18 21:02 12/08/18 08:04 12/08/18 12:26 Bedside Glucose 148 124 148 163 Medications Medication Current Medications Sodium Chloride 1,000 ml @ 100 mls/hr Q10H IV Last administered on 12/08/18at 12:44; Admin Dose 100 MLS/HR; Start 12/03/18 at 18:55 IV Flush (NS 3 ml) 3 ml PER PROTOCOL IV ; Start 12/03/18 at 19:00 Ondansetron HCl (Zofran Inj) 4 mg Q6H PRN IV NAUSEA/VOMITING; Start 12/03/18 at 19:00 Acetaminophen (Tylenol Tab) 650 mg Q6H PRN PO .PAIN 1-3 OR TEMP Last administered on 12/06/18at 14:40; Admin Dose 650 MG; Start 12/03/18 at 19:00 Acetaminophen/ Hydrocodone Bitart ([place] (5/325)) 1 tab Q6H PRN PO .MOD PAIN 4- 6; Start 12/03/18 at 19:00 Morphine Sulfate (morphine) 2 mg Q4H PRN IV .SEVERE PAIN 7-10 Last administered on 12/08/18at 08:05; Admin Dose 2 MG; Start 12/03/18 at 19:00 Heparin Sodium (Porcine) (Heparin (5000 Units/1ml)) 5,000 unit Q12 SC Last administered on 12/08/18at 08:10; Admin Dose 5,000 UNIT; Start 12/03/18 at 21:00 Diagnostic Test (Pha) (Accu-Chek) 1 ea 02 XX ; Start 12/04/18 at 02:00 Miscellaneous Information 1 ea NOTE XX ; Start 12/03/18 at 19:30 Glucose (Glutose) 15 gm Q15M PRN PO DECREASED GLUCOSE; Start 12/03/18 at 19:30 Glucose (Glutose) 22.5 gm Q15M PRN PO DECREASED GLUCOSE; Start 12/03/18 at 19:30 Dextrose (D50w Syringe) 25 ml Q15M PRN IV DECREASED GLUCOSE; Start 12/03/18 at 19:30 Dextrose (D50w Syringe) 50 ml Q15M PRN IV DECREASED GLUCOSE; Start 12/03/18 at 19:30 Glucagon (Glucagen) 1 mg Q15M PRN IM DECREASED GLUCOSE; Start 12/03/18 at 19:30 Glucose (Glutose) 15 gm Q15M PRN BUCCAL DECREASED GLUCOSE; Start 12/03/18 at 19:30 Piperacillin Sod/ Tazobactam Sod 100 ml @ 200 mls/hr Q6 IVPB Last administered on 12/08/18at 12:44; Admin Dose 200 MLS/HR; Start 12/04/18 at 00:30 Bisacodyl (Dulcolax Supp) 10 mg DAILY PRN [place] CONSTIPATION Last administered on 12/05/18at 22:16; Admin Dose 10 MG; Start 12/05/18 at 12:00 Metoclopramide HCl (Reglan) 10 mg Q6 IV Last administered on 12/08/18 12:44; Admin Dose 10 MG; Start 12/06/18 at 13:30 Insulin Aspart (Novolog Insulin Pen) NOVOLOG *MILD* ALGORITHM WITH MEALS BEDTIME SC Last administered on 12/08/18 12:53; Admin Dose 1 UNIT; Start 12/06/18 at 21:00 Zolpidem Tartrate (Ambien) 5 mg HS MAY REPEAT X 1 PRN PO INSOMNIA Last administered on 12/08/18 00:15; Admin Dose 5 MG; Start 12/07/18 at 18:00 SAMUEL LEE Dec 08, 2018 14:00
--- NOTE | 2018-12-08 14:00 | PN ---
Date/Time of Note Date/Time of Note DATE: 12/08/18 TIME: 13:49 Assessment/Plan VTE Prophylaxis Risk score (from Nsg)>0 risk: 4 SCD applied (from Nsg): Yes Pharmacological prophylaxis: heparin Lines/Catheters IV Catheter Type (from Nrsg): Peripheral IV Urinary Cath still in place: No Assessment/Plan Assessment/Plan 1. Bacteremia, negative repeat blood culture, follow up with final blood culture result done in [facility], on zosyn 2. Cholangiocarcinoma with biliary obstruction and metastasis to liver, s/p ERCP with stent placed here. Then repeat obstruction and stent replaced at [facility] last week. Has received 2 doses chemo, follow up with oncology 3. Mild extrinsic compression of the second part of the duodenum 4. DM, insulin scale 5. CAD, s/p CABG, stable 6. DVT prophylaxis: heparin SQ 7. Follow up with gastric emptying test Result Diagram: 12/07/1844612/07/18446 Results 24hrs Laboratory Tests Test 12/07/18 17:34 12/07/18 21:02 12/08/18 08:04 12/08/18 12:26 Bedside Glucose 148 124 148 163 Subjective 24 Hr Interval Summary Free Text/Dictation no nausea or vomiting Exam/Review of Systems Exam Vitals Vital Signs Date Temp Pulse Resp B/P (MAP) Pulse Ox O2 O2 Flow FiO2 Time Delivery Rate 12/08/18 98.0 57 16 154/74 98 Room Air 13:41 (100) Intake and Output 12/07/18 12/07/18 12/08/18 1515:00 23:00 07:00 IntakeIntake Total 730 ml 2740 ml 1696 ml OutputOutput Total 700 ml BalanceBalance 730 ml 2740 ml 996 ml Constitutional: alert, oriented, well developed Psych: no complaints, nl mood/affect Head: normocephalic, atraumatic Eyes: nl conjunctiva, EOMI, nl lids ENMT: nl external ears & nose, nl lips & teeth, nl nasal mucosa & septum Neck: supple Respiratory: clear to auscultation, normal air movement Cardiovascular: regular rate and rhythm, nl pulses; No bruits, No diastolic murmur, No edema, No gallop, No irregular rhythm, No jugular venous distention (JVD), No murmurs/extra sounds, No rub, No systolic murmur, No S3, No S4, No other Gastrointestinal: soft, nl liver, spleen, non-tender Musculoskeletal: nl extremities to inspection Extremities: normal pulses; No calf tenderness, No cyanosis, No clubbing, No edema, No pitting pedal edema, No palpable cord, No tenderness, No other Neurological: 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 intact, nl mental status, nl speech, nl strength Results Results 24hrs Laboratory Tests Test 12/07/18 17:34 12/07/18 21:02 12/08/18 08:04 12/08/18 12:26 Bedside Glucose 148 124 148 163 Medications Medication Current Medications Sodium Chloride 1,000 ml @ 100 mls/hr Q10H IV Last administered on 12/08/18at 12:44; Admin Dose 100 MLS/HR; Start 12/03/18 at 18:55 IV Flush (NS 3 ml) 3 ml PER PROTOCOL IV ; Start 12/03/18 at 19:00 Ondansetron HCl (Zofran Inj) 4 mg Q6H PRN IV NAUSEA/VOMITING; Start 12/03/18 at 19:00 Acetaminophen (Tylenol Tab) 650 mg Q6H PRN PO .PAIN 1-3 OR TEMP Last administered on 12/06/18at 14:40; Admin Dose 650 MG; Start 12/03/18 at 19:00 Acetaminophen/ Hydrocodone Bitart ([place] (5/325)) 1 tab Q6H PRN PO .MOD PAIN 4- 6; Start 12/03/18 at 19:00 Morphine Sulfate (morphine) 2 mg Q4H PRN IV .SEVERE PAIN 7-10 Last administered on 12/08/18at 08:05; Admin Dose 2 MG; Start 12/03/18 at 19:00 Heparin Sodium (Porcine) (Heparin (5000 Units/1ml)) 5,000 unit Q12 SC Last administered on 12/08/18at 08:10; Admin Dose 5,000 UNIT; Start 12/03/18 at 21:00 Diagnostic Test (Pha) (Accu-Chek) 1 ea 02 XX ; Start 12/04/18 at 02:00 Miscellaneous Information 1 ea NOTE XX ; Start 12/03/18 at 19:30 Glucose (Glutose) 15 gm Q15M PRN PO DECREASED GLUCOSE; Start 12/03/18 at 19:30 Glucose (Glutose) 22.5 gm Q15M PRN PO DECREASED GLUCOSE; Start 12/03/18 at 19:30 Dextrose (D50w Syringe) 25 ml Q15M PRN IV DECREASED GLUCOSE; Start 12/03/18 at 19:30 Dextrose (D50w Syringe) 50 ml Q15M PRN IV DECREASED GLUCOSE; Start 12/03/18 at 19:30 Glucagon (Glucagen) 1 mg Q15M PRN IM DECREASED GLUCOSE; Start 12/03/18 at 19:30 Glucose (Glutose) 15 gm Q15M PRN BUCCAL DECREASED GLUCOSE; Start 12/03/18 at 19:30 Piperacillin Sod/ Tazobactam Sod 100 ml @ 200 mls/hr Q6 IVPB Last administered on 12/08/18at 12:44; Admin Dose 200 MLS/HR; Start 12/04/18 at 00:30 Bisacodyl (Dulcolax Supp) 10 mg DAILY PRN [place] CONSTIPATION Last administered on 12/05/18at 22:16; Admin Dose 10 MG; Start 12/05/18 at 12:00 Metoclopramide HCl (Reglan) 10 mg Q6 IV Last administered on 12/08/18 12:44; Admin Dose 10 MG; Start 12/06/18 at 13:30 Insulin Aspart (Novolog Insulin Pen) NOVOLOG *MILD* ALGORITHM WITH MEALS BEDTIME SC Last administered on 12/08/18 12:53; Admin Dose 1 UNIT; Start 12/06/18 at 21:00 Zolpidem Tartrate (Ambien) 5 mg HS MAY REPEAT X 1 PRN PO INSOMNIA Last administered on 12/08/18 00:15; Admin Dose 5 MG; Start 12/07/18 at 18:00 TAMAR CRANE MD Dec 08, 2018 14:00
--- NOTE | 2018-12-08 16:58 | CONS ---
Assessment/Plan Assessment/Plan Hospital Course (Demo Recall) ID PROGRESS NOTE CURRENT ABX: DAY #6 => Zosyn 12/07/18 0447 12/07/18 0447 24H INTERVAL SUMMARY * He feels well, no fevers, no complaints * 12/08/18 gastric emptying Nuc-MED IMPRESSION:Normal gastric emptying rate . * 12/07/18 UPPER GI SERIES: IMPRESSION: 1. Central venous catheter. 2. Common bile duct stent. 3. Undigested food in the stomach. 4. Mild extrinsic compression of the second part of the duodenum with contrast flowing through the duodenal C sweep. 5. Otherwise unremarkable study. * 12/06/18 ABD XR: IMPRESSION:Nonobstructive bowel gas pattern. Enteric tube looped in the left upper quadrant abdomen, likely within the stomach. Residual enteric contrast noted within the colon. Two biliary stents are noted. * 12/04/18 CT ABD-PEL: IMPRESSION: * Mild intrahepatic ductal dilatation in patient with bilateral biliary endoprosthesis. * No gallstones visualize. Sheet-like soft tissue surrounding gallbladder and within the kraig hepatis as seen on recent MRI. Question cholangiocarcinoma versus gallbladder cancer versus metastatic adenopathy. Consider biopsy. * Vascular calcifications. * Left renal cyst. * No evidence of urolithiasis, obstructive uropathy, diverticulitis or appendicitis. * Small right pleural effusion. MICRO * 12/04/18 BCX @ [facility] (-) * BCx (+) GNR @ [facility]: Microbiology at the other hospital informs us that his blood cultures are positive for Klebsiella species not Klebsiella pneumoniae PHYSICAL EXAMINATION GENERAL: Afebrile, VSS HEENT: AT, NC, anicteric NECK: Grossly normal CHEST: Equal chest rise bilaterally = without dyspnea HEART: Pulse RRR ABDOMEN: Deferred, sleeping EXTREMITIES: Warm, SKIN: No rash, no diaphoresis ID ASSESSMENT 63 yo M admit with: (1) SIRS w/Tmax 99.6 on TNS from [facility] * 12/04/18 BCX @ [facility] (-) * BCx (+) GNR @ [facility]: Microbiology at the other hospital informs us that his blood cultures are positive for Klebsiella species not Klebsiella pneumoniae (2) Obstructed, gastric outlet -> S/P EGD 12/06/17 w/report 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 * s/p 10/12/18 ERCP, sphincterotomy, brushings of the malignant stricture of the bile duct, placement of 2 stents, one into the left hepatic duct and one into the right hepatic duct. (4) Diabetes mellitus type 2 in nonobese * Status: Chronic/Stable (5) H/O four vessel coronary artery bypass graft * Onset Date: ~ 11/2009 Status: Chronic/asymptomatic ABX ALLERGIES: KNDA INVASIVES: PIV CURRENT ABX: DAY #6 => Zosyn ID RECOMMENDATIONS/PLAN: 1. Continue Zosyn 2. I requested entry level staff accountant to obtain MICRO BCx results from 12/02/18 & 12/03/18 from [place] and put hardcopy on the chart for review tomorrow. 3. DC PLANNING: Anticipate total 14 days ABX. May change to PO Cipro/Levaquin/or Augmentin 875mg poQ12H on days#8-14 if sensitivities can be confirmed. * If not sensitive to PO's listed, then consider DC on Ertapenem 1GM IVPB to c omplete 14 days. . Consultation Date/Type/Reason Admit Date/Time Dec 03, 2018 at 18:07 Initial Consult Date Date/Time of Note DATE: 12/08/18 TIME: 16:49 Exam/Review of Systems Exam Vitals Vital Signs Date Temp Pulse Resp B/P (MAP) Pulse Ox O2 O2 Flow FiO2 Time Delivery Rate 12/08/18 98.0 57 16 154/74 98 Room Air 13:41 (100) Intake and Output 12/07/18 12/07/18 12/08/18 1515:00 23:00 07:00 IntakeIntake Total 730 ml 2740 ml 1696 ml OutputOutput Total 700 ml BalanceBalance 730 ml 2740 ml 996 ml Results Result Diagram: 12/07/18 0447 12/07/18 0447 Results 24hrs Laboratory Tests Test 12/07/18 17:34 12/07/18 21:02 12/08/18 08:04 12/08/18 12:26 Bedside Glucose 148 124 148 163 Medications Medication Current Medications Sodium Chloride 1,000 ml @ 100 mls/hr Q10H IV Last administered on 12/08/18at 12:44; Admin Dose 100 MLS/HR; Start 12/03/18 at 18:55 IV Flush (NS 3 ml) 3 ml PER PROTOCOL IV ; Start 12/03/18 at 19:00 Ondansetron HCl (Zofran Inj) 4 mg Q6H PRN IV NAUSEA/VOMITING; Start 12/03/18 at 19:00 Acetaminophen (Tylenol Tab) 650 mg Q6H PRN PO .PAIN 1-3 OR TEMP Last administered on 12/06/18at 14:40; Admin Dose 650 MG; Start 12/03/18 at 19:00 Acetaminophen/ Hydrocodone Bitart ([place] (5/325)) 1 tab Q6H PRN PO .MOD PAIN 4- 6; Start 12/03/18 at 19:00 Morphine Sulfate (morphine) 2 mg Q4H PRN IV .SEVERE PAIN 7-10 Last administered on 12/08/18at 08:05; Admin Dose 2 MG; Start 12/03/18 at 19:00 Heparin Sodium (Porcine) (Heparin (5000 Units/1ml)) 5,000 unit Q12 SC Last administered on 12/08/18at 08:10; Admin Dose 5,000 UNIT; Start 12/03/18 at 21:00 Diagnostic Test (Pha) (Accu-Chek) 1 ea 02 XX ; Start 12/04/18 at 02:00 Miscellaneous Information 1 ea NOTE XX ; Start 12/03/18 at 19:30 Glucose (Glutose) 15 gm Q15M PRN PO DECREASED GLUCOSE; Start 12/03/18 at 19:30 Glucose (Glutose) 22.5 gm Q15M PRN PO DECREASED GLUCOSE; Start 12/03/18 at 19:30 Dextrose (D50w Syringe) 25 ml Q15M PRN IV DECREASED GLUCOSE; Start 12/03/18 at 19:30 Dextrose (D50w Syringe) 50 ml Q15M PRN IV DECREASED GLUCOSE; Start 12/03/18 at 19:30 Glucagon (Glucagen) 1 mg Q15M PRN IM DECREASED GLUCOSE; Start 12/03/18 at 19:30 Glucose (Glutose) 15 gm Q15M PRN BUCCAL DECREASED GLUCOSE; Start 12/03/18 at 19:30 Piperacillin Sod/ Tazobactam Sod 100 ml @ 200 mls/hr Q6 IVPB Last administered on 12/08/18 12:44; Admin Dose 200 MLS/HR; Start 12/04/18 at 00:30 Bisacodyl (Dulcolax Supp) 10 mg DAILY PRN [place] CONSTIPATION Last administered on 12/05/18 22:16; Admin Dose 10 MG; Start 12/05/18 at 12:00 Metoclopramide HCl (Reglan) 10 mg Q6 IV Last administered on 12/08/18 12:44; Admin Dose 10 MG; Start 12/06/18 at 13:30 Insulin Aspart (Novolog Insulin Pen) NOVOLOG *MILD* ALGORITHM WITH MEALS BEDTIME SC Last administered on 12/08/18 12:53; Admin Dose 1 UNIT; Start 12/06/18 at 21:00 Zolpidem Tartrate (Ambien) 5 mg HS MAY REPEAT X 1 PRN PO INSOMNIA Last administered on 12/08/18 00:15; Admin Dose 5 MG; Start 12/07/18 at 18:00 NILO HAWKINS CARDIOVASCULAR TECH Dec 08, 2018 16:57
[2018-12-08] MEDS ORDERED: morphine LIQ (10 MG/5 ML) CUP PO PRN (18:00)
[2018-12-08 20:25] VITALS: BP 155/74; PULSE 63; RESP 18
[2018-12-08] MEDS ORDERED: ZOLPIDEM 5 MG TAB PO PRN (21:00)
[2018-12-09 01:30] VITALS: BP 151/76; PULSE 68; RESP 18
[2018-12-09] MEDS: SOD CHLORIDE 0.9% 1,000 ML IV SCH ×2 (03:42→04:55)
[2018-12-09] MEDS: PIPER-TAZO 3.375 GM IV (PMX) 100 ML IVPB SCH ×2 (05:16→12:27)
[2018-12-09] MEDS: METOCLOPRAMIDE 10 MG INJ IV SCH ×2 (05:16→12:27)
[2018-12-09 07:49] VITALS: BP 166/77; PULSE 63; RESP 18
[2018-12-09] MEDS: INSULIN ASPART [NOVOLOG] 3 ML PEN SC SCH ×2 (08:15→12:24)
[2018-12-09] MEDS: HEPARIN 5,000 UNIT/1 ML VIAL SC SCH (08:15)
[2018-12-09 13:16] VITALS: BP 157/71; PULSE 57; RESP 18
--- NOTE | 2018-12-09 13:24 | CONS ---
Assessment/Plan Assessment/Plan Hospital Course (Demo Recall) ID PROGRESS NOTE CURRENT ABX: DAY #7=> Zosyn 12/07/18 0447 12/07/18 0447 24H INTERVAL SUMMARY * A/A/O -- no complaints -- eager to learn if he can DC home, no fevers, VSS, no new questions about ABX plan of care * MICRO RESULTS FROM [facility] NOW ON CHART * BCx 12/02/18 grew Raoultella planticola = SENSITIVE to Unasyn, Ceftriaxone, Bactrim, Zosyn, Levaquin * 12/08/18 gastric emptying Nuc-MED IMPRESSION:Normal gastric emptying rate . * 12/07/18 UPPER GI SERIES: IMPRESSION: 1. Central venous catheter. 2. Common bile duct stent. 3. Undigested food in the stomach. 4. Mild extrinsic compression of the second part of the duodenum with contrast flowing through the duodenal C sweep. 5. Otherwise unremarkable study. * 12/06/18 ABD XR: IMPRESSION:Nonobstructive bowel gas pattern. Enteric tube looped in the left upper quadrant abdomen, likely within the stomach. Residual enteric contrast noted within the colon. Two biliary stents are noted. * 12/04/18 CT ABD-PEL: IMPRESSION: * Mild intrahepatic ductal dilatation in patient with bilateral biliary endoprosthesis. * No gallstones visualize. Sheet-like soft tissue surrounding gallbladder and within the kraig hepatis as seen on recent MRI. Question cholangiocarcinoma versus gallbladder cancer versus metastatic adenopathy. Consider biopsy. * Vascular calcifications. * Left renal cyst. * No evidence of urolithiasis, obstructive uropathy, diverticulitis or a ppendicitis. * Small right pleural effusion. MICRO * 12/04/18 BCX @ [facility] (-) * BCx (+) GNR @ [facility]: Microbiology at the other hospital informs us that his blood cultures are positive for Klebsiella species not Klebsiella pneumoniae PHYSICAL EXAMINATION GENERAL: Afebrile, VSS HEENT: AT, NC, anicteric NECK: Grossly normal CHEST: Equal chest rise bilaterally = without dyspnea HEART: Pulse RRR ABDOMEN: Deferred, sleeping EXTREMITIES: Warm, SKIN: No rash, no diaphoresis ID ASSESSMENT 63 yo M admit with: (1) SIRS w/Tmax 99.6 on TNS from [facility]=> RESOLVED * 12/04/18 BCX @ [facility] (-) * BCx (+) GNR @ [facility]: Microbiology at the other hospital informs us that his blood cultures are positive for Klebsiella species not Klebsiella pneumoniae * MICRO RESULTS FROM [facility] NOW ON CHART * BCx 12/02/18 grew Raoultella planticola = SENSITIVE to Unasyn, Ceftriaxone, Bactrim, Zosyn, Levaquin (2) Obstructed, gastric outlet -> S/P EGD 12/06/17 ==GI on the case * Repeat obstruction and stent replaced at [facility] last week (3) 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 * s/p 10/12/18 ERCP, sphincterotomy, brushings of the malignant stricture of the bile duct, placement of 2 stents, one into the left hepatic duct and one into the right hepatic duct. (4) Diabetes mellitus type 2 in nonobese * Status: Chronic/Stable (5) H/O four vessel coronary artery bypass graft * Onset Date: ~ 11/2009 Status: Chronic/asymptomatic ABX ALLERGIES: KNDA INVASIVES: PIV CURRENT ABX: DAY #7 => Zosyn ID RECOMMENDATIONS/PLAN: 1.MICRO RESULTS FROM [facility] NOW ON CHART * BCx 12/02/18 grew Raoultella planticola = SENSITIVE to Unasyn, Ceftriaxone, Bactrim, Zosyn, Levaquin * DC Zosyn today and give Levaquin 750mg IV x 1 today 4. DC PLANNING: * Patient may DC home on Levaquin 500 mg po daily x 7 days to start tomorrow 12/10/18 . . Consultation Date/Type/Reason Admit Date/Time Dec 03, 2018 at 18:07 Initial Consult Date Date/Time of Note DATE: 12/09/18 TIME: 13:08 Exam/Review of Systems Exam Vitals Vital Signs Date Temp Pulse Resp B/P (MAP) Pulse Ox O2 O2 Flow FiO2 Time Delivery Rate 12/09/18 97.8 63 18 166/77 98 Room Air 07:49 (106) Intake and Output 12/08/18 12/08/18 12/09/18 1414:59 22:59 06:59 IntakeIntake Total 1200 ml 1080 ml 1140 ml OutputOutput Total 675 ml 225 ml 1000 ml BalanceBalance 525 ml 855 ml 140 ml Results Result Diagram: 12/07/187 12/07/18446 Results 24hrs Laboratory Tests Test 12/08/18 17:32 12/08/18 20:28 12/09/18 07:44 12/09/18 12:10 Bedside Glucose 270 H 179 150 184 Medications Medication Current Medications Sodium Chloride 1,000 ml @ 100 mls/hr Q10H IV Last administered on 12/09/18at 03:42; Admin Dose 100 MLS/HR; Start 12/03/18 at 18:55 IV Flush (NS 3 ml) 3 ml PER PROTOCOL IV ; Start 12/03/18 at 19:00 Ondansetron HCl (Zofran Inj) 4 mg Q6H PRN IV NAUSEA/VOMITING; Start 12/03/18 at 19:00 Acetaminophen (Tylenol Tab) 650 mg Q6H PRN PO .PAIN 1-3 OR TEMP Last administered on 12/06/18at 14:40; Admin Dose 650 MG; Start 12/03/18 at 19:00 Acetaminophen/ Hydrocodone Bitart ([place] (5/325)) 1 tab Q6H PRN PO .MOD PAIN 4-6; Start 12/03/18 at 19:00 Heparin Sodium (Porcine) (Heparin (5000 Units/1ml)) 5,000 unit Q12 SC Last administered on 12/09/18at 08:15; Admin Dose 5,000 UNIT; Start 12/03/18 at 21:00 Diagnostic Test (Pha) (Accu-Chek) 1 ea 02 XX ; Start 12/04/18 at 02:00 Miscellaneous Information 1 ea NOTE XX ; Start 12/03/18 at 19:30 Glucose (Glutose) 15 gm Q15M PRN PO DECREASED GLUCOSE; Start 12/03/18 at 19:30 Glucose (Glutose) 22.5 gm Q15M PRN PO DECREASED GLUCOSE; Start 12/03/18 at 19:30 Dextrose (D50w Syringe) 25 ml Q15M PRN IV DECREASED GLUCOSE; Start 12/03/18 at 19:30 Dextrose (D50w Syringe) 50 ml Q15M PRN IV DECREASED GLUCOSE; Start 12/03/18 at 19:30 Glucagon (Glucagen) 1 mg Q15M PRN IM DECREASED GLUCOSE; Start 12/03/18 at 19:30 Glucose (Glutose) 15 gm Q15M PRN BUCCAL DECREASED GLUCOSE; Start 12/03/18 at 19:30 Piperacillin Sod/ Tazobactam Sod 100 ml @ 200 mls/hr Q6 IVPB Last administered on 12/09/18 12:27; Admin Dose 200 MLS/HR; Start 12/04/18 at 00:30 Bisacodyl (Dulcolax Supp) 10 mg DAILY PRN [place] CONSTIPATION Last administered on 12/05/18 22:16; Admin Dose 10 MG; Start 12/05/18 at 12:00 Metoclopramide HCl (Reglan) 10 mg Q6 IV Last administered on 12/09/18 12:27; Admin Dose 10 MG; Start 12/06/18 at 13:30 Insulin Aspart (Novolog Insulin Pen) NOVOLOG *MILD* ALGORITHM WITH MEALS B EDTIME SC Last administered on 12/09/18 12:24; Admin Dose 2 UNIT; Start 12/06/18 at 21:00 Morphine Sulfate (morphine) 6 mg Q4H PRN PO SEVERE PAIN LEVEL 7-10; Start 12/08/18 at 18:00 Zolpidem Tartrate (Ambien) 10 mg HS PRN PO INSOMNIA Last administered on 12/08/18 21:25; Admin Dose 10 MG; Start 12/08/18 at 21:00 NILO HAWKINS NP Dec 09, 2018 13:19
[2018-12-09] MEDS ORDERED: LEVOFLOXACIN 750MG/D5W (PMX) 150 ML IVPB ONE (14:00)
[2018-12-09] MEDS ORDERED: ZOLP5TAB PO (15:55)
[2018-12-09] MEDS ORDERED: LEVO500T48 PO (15:55)
[2018-12-09] MEDS ORDERED: METO5TAB58 PO (15:55)
[2018-12-09] MEDS ORDERED: PANT40TA3 PO (15:56)
--- NOTE | 2018-12-09 16:05 | DS ---
Date/Time of Note Date/Time of Note DATE: 12/09/18 TIME: 15:57 Discharge Summary Admission/Discharge Info Admit Date/Time Dec 03, 2018 at 18:07 Discharge Date/Time Discharge Diagnosis 1. Bacteremia, levaquin for 7 days 2. Mild extrinsic compression of the second part of the duodenum with slow gastric emptying, PPI and reglan, follow up with Dr. Lynn. 3. Cholangiocarcinoma with biliary obstruction and metastasis to liver, s/p ERCP with stent placed here. Then repeat obstruction and stent replaced at [facility] last week. Has received 2 doses chemo, follow up with oncology 4. DM, stable 5. CAD, s/p CABG, stable Patient Condition: Stable Hospital Course 63-year-old Yi gentleman who is admitted to the hospital because of vomiting. Apparently, he is known to have a cholangiocarcinoma and he had 2 plastic stents put in this hospital, 1 into the left and 1 into the right hepatic duct. Subsequently, he went to [facility]. He had 2 metal stents placed, 1 into the right and 1 into the left hepatic duct. He is being treated with chemotherapy at this time. He has received 2 courses of chemotherapy. CAT scan of the abdomen showed evidence of a cholangiocarcinoma, perhaps invading into the gastroduodenal junction. The images are not available. Further work up for slow gastric emptying, nuclear gastric emptying test is normal, but upper Gi series revealed Mild extrinsic compression of the second part of the duodenum with contrast flowing through the duodenal C sweep. Case discussed with Dr. Lynn who feels the duodenal narrowing is the cause of his vomiting and slow gastric emptying. Dr. Lynn recommends reglan and protonix and follow up with him outpatient. He may need stent if symptoms persistent. Patient has no vomiting today. Blood culture on 12/02/18 grew Raoultella planticola = SENSITIVE to Unasyn, Ceftriaxone, Bactrim, Zosyn, Levaquin. Patient will be discharge don levaquin for 7 days. Home Meds Active Scripts Pantoprazole* (Protonix*) 40 Mg Tablet., 40 MG PO DAILY for 30 Days, TAB Prov:TAMAR CRANE MD 12/09/18 Metoclopramide* (Reglan*) 5 Mg Tablet, 5 MG PO AC MEALS for 30 Days, TAB Prov:TAMAR CRANE MD 12/09/18 Zolpidem Tartrate (Ambien Abisai) 5 Mg Tablet, 5 MG PO HS PRN for INSOMNIA for 10 Days, TAB Prov:TAMAR CRANE MD 12/09/18 Levofloxacin* (Levaquin*) 500 Mg Tablet, 500 MG PO DAILY@06 for 7 Days, TAB Prov:TAMAR CRANE MD 12/09/18 Insulin Glargine,Hum.rec.anlog (Basaglar Kwikpen U-100) 100 Unit/1 Ml Insuln.pen, 30 UNIT SC DAILY for 30 Days, #2 EA 5 Refills Prov:LOPEZ FLOWERS MD 10/16/18 Insulin Aspart* (Novolog Insulin Pen*) 100 Unit/Ml Soln, 10 UNIT SC WITH MEALS for 30 Days, #5 EA 3 Refills Prov:LOPEZ FLOWERS MD 10/16/18 Ursodiol* (Actigall*) 300 Mg Cap, 300 MG PO TID for 30 Days, #90 CAP Prov:LOPEZ FLOWERS MD 10/16/18 Follow-up Plan PCP and Dr. Lynn in one week Primary Care Provider Not On Staff Doctor Pending Labs Laboratory Tests Test 12/08/18 17:32 12/08/18 20:28 12/09/18 07:44 12/09/18 12:10 Bedside 270 179 150 184 Glucose mg/dL (70-220) mg/dL (70-220) mg/dL (70-220) mg/dL (70-220) TAMAR CRANE MD Dec 09, 2018 16:05
[2018-12-10] MEDS ORDERED: LEVOFLOXACIN 500 MG TAB PO SCH (06:00)
== END 2018-12-09 17:00 | disposition home or self-care (01) | DRG 872 ==
LOC: 2NE 18:07
PROVIDERS: ADMIT Internal Medicine; ATTEND Internal Medicine
PROC: 0DJ08ZZ Inspection of Upper Intestinal Tract, Via Natural or Artificial Opening Endoscopic (ICD-10-PCS; principal; 2018-12-06 12:00)
DX: A41.59 Other Gram-negative sepsis (principal); K31.1 Adult hypertrophic pyloric stenosis; C22.1 Intrahepatic bile duct carcinoma; C78.7 Secondary malignant neoplasm of liver and intrahepatic bile duct; I25.10 Atherosclerotic heart disease of native coronary artery without angina pectoris; E78.5 Hyperlipidemia, unspecified; I10 Essential (primary) hypertension; K20.9 Esophagitis, unspecified; K29.30 Chronic superficial gastritis without bleeding; E11.43 Type 2 diabetes mellitus with diabetic autonomic (poly)neuropathy; K31.84 Gastroparesis; Z95.1 Presence of aortocoronary bypass graft
CPT/HCPCS: 74018; 74176; 74240; 78264; 80048; 80053; 82962; 83735; 84100; 85025; 85610; 85730; 87040; A9541; J1644; J1815; J1956; J2270; J2543; J2765; J3480; J7030; Q9967